=== PATIENT | female | born 1965 | race Caucasian/White ===

== ENCOUNTER 2016-09-26 01:32 | Emergency (ER) | payer BC ==
[2016-09-26] MEDS ORDERED: NORMAL SALINE 1,000 ML IV ONE ×2 (01:48→04:55)
[2016-09-26 01:52] LABS: Hematocrit 51.2 % (37.0-47.0); Hemoglobin 17.3 gm/dL (12.5-16.0); Mean Cell Volume 87.2 fl (78-100); Mean Corpuscular Hemoglobin 29.5 pg (27-31); Mean Corpuscular Hgb Conc 33.8 g/dl (32-36); Mean Platelet Volume 10.3 fl (6.0-9.5); Neutrophil # 9.2 K/mm3 (1.3-6.0); Neutrophil % 77.5 % (42-75.0); Platelet Count 340 K/mm3 (150-450); Red Blood Count 5.87 M/mm3 (4.2-5.4); Red Cell Distribution Width 12.3 % (11.5-14.0); White Blood Count 11.8 K/mm3 (4.0-10.5)
[2016-09-26] MEDS ORDERED: ONDANSETRON HCL/PF 2 MG/ML VIAL IV ONE (01:58)
--- OUTSIDE RECORDS SUMMARY | 2016-09-26 02:02 | XMS REPORT | Summary of Care ---
:[address] [facility] Care Team Providers Name Role Phone Dany Bajwa Primary Care Physician Encounter Date(s): 05/25/16 - 05/25/[address] [id number] Discharge Disposition: Discharged to Home or Self Care Attending Physician: LALO Christianson Admitting Physician: LALO Christianson Vital Signs No data available for this section Problem List Condition Effective Dates Status Health Status Informant Benign essential HTN(Confirmed) Active Recurrent UTI(Confirmed) Active Chronic pain syndrome(Confirmed) Active PTSD - Post-traumatic stress Active disorder(Confirmed) Depression(Confirmed) Active Diabetes mellitus type II(Confirmed) < 08/09/13 Resolved Endometriosis(Confirmed) Active Migraine(Confirmed) Active Obesity NOS(Confirmed) Active chronic Psychiatric Active illness(Confirmed) Hyperlipidemia NEC/NOS(Confirmed) Active Left Shoulder labral tear(Confirmed) 2009 Active Allergies, Adverse Reactions, Alerts Substance Reaction Severity Status Compazine Active Demerol HCl Active nitrofurantoin severe headaches Active Nubain Active Phenergan Active sulfa drugs upset stomach Active Medications amoxicillin 500 mg oral capsule 1 cap(s), Oral, TID, X 10 days, # 30 cap(s), 0 Refill(s), [facility] [facility] [place] [place] Start Date: 07/21/13 Stop Date: 07/31/13 Status: Completedaspirin 81 mg oral tablet 1 tab(s), Oral, Daily, 0 Refill(s) Start Date: 10/07/13 Status: OrderedAugmentin 875 mg-125 mg oral tablet 1 tab(s), Oral, q12hr, # 20 tab(s), 0 Refill(s), Start Date: 02/15/14 9:22:00 SLICE PLUG CUTTER OPERATOR HELPER, [facility] [place] Start Date: 02/15/14 Stop Date: 02/25/14 Status: DiscontinuedBactrim 400 mg-80 mg oral tablet 1 tab(s), Oral, Daily, PRN other (see comment), postcoital, X 90 days, # 20 tab( s), 3 Refill(s), Start Date: 12/15/15 15:47:00 CDT, [facility] [place] Special Instructions: postcoital Start Date: 12/15/15 Stop Date: 12/09/16 Status: OrderedBactrim DS 800 mg-160 mg oral tablet 1 tab(s), Oral, BID, X 7 days, # 14 tab(s), 0 Refill(s), Start Date: 04/16/14 13 :47:00 SLICE PLUG CUTTER OPERATOR HELPER Start Date: 04/16/14 Stop Date: 04/23/14 Status: Completedcephalexin 500 mg oral tablet 1 tab(s), Oral, TID, # 21 tab(s), 0 Refill(s), Start Date: 12/10/15 16:22:00 CDT , [facility] [facility] [place] [place] Start Date: 12/10/15 Stop Date: 01/18/16 Status: CompletedCipro 500 mg oral tablet 1 tab(s), Oral, Daily, X 7 days, # 7 tab(s), 0 Refill(s), Start Date: 09/27/14 9 :46:00 CDT, [facility]: [facility] [place] Start Date: 09/27/14 Stop Date: 10/04/14 Status: CompletedCipro 500 mg oral tablet 1 tab(s), Oral, q12hr, # 10 tab(s), 0 Refill(s), Start Date: 03/18/15 13:05:00 SLICE PLUG CUTTER OPERATOR HELPER, [facility] [place] Start Date: 03/18/15 Stop Date: 04/09/15 Status: CompletedCipro 500 mg oral tablet 1 tab(s), Oral, q12hr, X 7 days, # 14 tab(s), 0 Refill(s), Start Date: 04/16/14 13:56:00 SLICE PLUG CUTTER OPERATOR HELPER Start Date: 04/16/14 Stop Date: 04/23/14 Status: CompletedCipro 500 mg oral tablet 1 tab(s), Oral, q12hr, X 7 days, # 14 tab(s), 0 Refill(s), Start Date: 07/28/15 13:09:00 CDT, [facility] [place] Start Date: 07/28/15 Stop Date: 08/14/15 Status: CompletedCipro 500 mg oral tablet 1 tab(s), Oral, q12hr, # 14 tab(s), 0 Refill(s), Start Date: 03/11/16 16:34:00 SLICE PLUG CUTTER OPERATOR HELPER, [facility] [place] [place] Start Date: 03/11/16 Stop Date: 03/17/16 Status: CompletedCipro 500 mg oral tablet 1 tab(s), Oral, q12hr, # 14 tab(s), 0 Refill(s), Start Date: 08/14/15 14:07:40 CDT, [facility] [place] Start Date: 08/14/15 Stop Date: 09/10/15 Status: CompletedCo Q-10 100 mg oral capsule 1 cap(s), Oral, Daily, 0 Refill(s), Start Date: 08/09/13 8:32:00 CDT Start Date: 08/09/13 Status: Orderedcyclobenzaprine 10 mg oral tablet 1 tab(s), Oral, TID, PRN for spasm, # 90 tab(s), 0 Refill(s), [facility] [facility] [place] Start Date: 09/30/13 Stop Date: 10/29/13 Status: Completedcyclobenzaprine 10 mg oral tablet 1 tab(s), Oral, TID, PRN as needed for muscle spasm, # 30 tab(s), 0 Refill(s), Start Date: 08/18/14 9:33:10 CDT, [facility] [facility] [place] Start Date: 08/18/14 Status: Orderedcyclobenzaprine 10 mg oral tablet 1 tab(s), Oral, TID, PRN as needed for muscle spasm, # 90 tab(s), 5 Refill(s), Start Date: 10/29/13 11:04:53 CDT, [facility] [facility] [place] Start Date: 10/29/13 Stop Date: 08/18/14 Status: CompletedCymbalta 60 mg, Oral, qPM, 0 Refill(s), Start Date: 07/21/13 12:05:00 CDT Start Date: 07/21/13 Status: OrderedFlorastor 250 mg oral capsule 1 cap(s), Oral, BID, # 20 cap(s), 0 Refill(s), Start Date: 03/18/15 13:04:00 SLICE PLUG CUTTER OPERATOR HELPER , [facility] [facility] [place] Start Date: 03/18/15 Stop Date: 04/09/15 Status: Completedibuprofen 800 mg oral tablet 1 tab(s), Oral, TID, # 90 tab(s), 5 Refill(s), Start Date: 10/06/15 14:28:12 CDT , [facility] [facility] [place] Start Date: 10/06/15 Status: Orderedibuprofen 800 mg oral tablet 1 tab(s), Oral, TID, # 90 tab(s), 0 Refill(s), Pharmacy: [facility] [place] Start Date: 09/30/13 Stop Date: 10/29/13 Status: Completedibuprofen 800 mg oral tablet 1 tab(s), Oral, TID, # 90 tab(s), 5 Refill(s), Start Date: 08/18/14 9:33:12 CDT , [facility] [facility] [place] Start Date: 08/18/14 Stop Date: 10/06/15 Status: Discontinuedibuprofen 800 mg oral tablet 1 tab(s), Oral, TID, # 90 tab(s), 5 Refill(s), Start Date: 02/18/14 14:47:00 SLICE PLUG CUTTER OPERATOR HELPER , [facility] [facility] [place] Start Date: 02/18/14 Stop Date: 08/18/14 Status: Completedibuprofen 800 mg oral tablet 1 tab(s), Oral, TID, # 90 tab(s), 5 Refill(s), Pharmacy: [place], [place] Start Date: 10/29/13 Stop Date: 02/25/14 Status: DiscontinuedInsulin Pen Gaston 5/16" 31G 1 needle, Subcutaneous, QID, # 100 EA, 5 Refill(s), Pharmacy: [place], [place], Supply Start Date: 10/15/13 Stop Date: 06/06/14 Status: CompletedInsulin Pen [place] 5/16" 31G 1 needle, Subcutaneous, QID, Use 5 times daily and as needed; 250.00, insulin dependent diabetes mellitus., # 200 EA, 5 Refill(s), [facility] [place] Special Instructions: Use 5 times daily and as needed; 250.00, insulin dependent diabetes mellitus. Start Date: 06/06/14 Stop Date: 07/22/15 Status: CompletedInsulin Pen Gaston 16" 31G 100 [place], Subcutaneous, Daily, # 1 boxes, 0 Refill(s), Supply Start Date: 08/09/13 Stop Date: 10/15/13 Status: DiscontinuedKeflex 500 mg oral capsule 1 cap(s), Oral, BID, # 14 cap(s), 0 Refill(s), Start Date: 11/23/15 16:34:00 CDT , Pharmacy: [place], [place] Start Date: 11/23/15 Stop Date: 12/10/15 Status: CompletedLevemir Subcutaneous, 0 Refill(s) Start Date: 07/21/13 Stop Date: 08/10/13 Status: DiscontinuedLevemir 100 units/mL subcutaneous solution 60 units, Subcutaneous, BID, # 10 mL, 3 Refill(s), Pharmacy: [place], [place] Start Date: 08/12/13 Stop Date: 09/11/13 Status: DiscontinuedLevemir 100 units/mL subcutaneous solution 70 units, Subcutaneous, BID, # 100 units, 3 Refill(s) Start Date: 08/10/13 Stop Date: 08/12/13 Status: CompletedLevemir 100 units/mL subcutaneous solution 80 units, Subcutaneous, BID, dose change, # 1 QS, 5 Refill(s), [facility] [place] Special Instructions: dose change Start Date: 09/11/13 Stop Date: 09/12/13 Status: DiscontinuedLevemir 100 units/mL subcutaneous solution 80 units, Subcutaneous, BID, dose change, # 5 EA, 5 Refill(s), [facility] [place] Special Instructions: dose change Start Date: 09/12/13 Stop Date: 12/31/13 Status: CompletedLevemir FlexTouch 100 units/mL subcutaneous solution 80 units, Subcutaneous, BID, # 15 mL, 5 Refill(s), Start Date: 12/30/13 10:57: 00 SLICE PLUG CUTTER OPERATOR HELPER, [facility] [place] Start Date: 12/30/13 Stop Date: 12/31/13 Status: CompletedLevemir FlexTouch 100 units/mL subcutaneous solution 80 units, Subcutaneous, BID, 0 Refill(s), Start Date: 12/30/13 10:56:00 SLICE PLUG CUTTER OPERATOR HELPER Start Date: 12/30/13 Stop Date: 12/30/13 Status: DiscontinuedLevemir FlexTouch 100 units/mL subcutaneous solution 80 units, Subcutaneous, BID, # 60 mL, 3 Refill(s), Start Date: 12/31/13 8:31:03 SLICE PLUG CUTTER OPERATOR HELPER, [facility] [place] [place] Start Date: 12/31/13 Stop Date: 06/30/14 Status: CompletedLevemir FlexTouch 100 units/mL subcutaneous solution 80 units, Subcutaneous, BID, NEEDS APPOINTMENT FOR FURTHER REFILLS., # 1 boxes, 0 Refill(s), Start Date: 06/30/14 11:11:59 CDT, [facility] [place] [place] Special Instructions: NEEDS APPOINTMENT FOR FURTHER REFILLS. Start Date: 06/30/14 Stop Date: 01/18/16 Status: DiscontinuedLipitor Oral, HS, 0 Refill(s) Start Date: 07/21/13 Stop Date: 09/11/13 Status: DiscontinuedLipitor 40 mg oral tablet 1 tab(s), Oral, HS, # 30 tab(s), 11 Refill(s), [facility]acy: [facility] [place] Start Date: 09/11/13 Stop Date: 02/25/14 Status: DiscontinuedLipitor 80 mg oral tablet 1 tab(s), Oral, Daily, # 90 tab(s), 1 Refill(s), Start Date: 10/06/15 14:27:53 CDT, [facility] [facility] [place] Start Date: 10/06/15 Stop Date: 04/19/16 Status: CompletedLipitor 80 mg oral tablet 1 tab(s), Oral, Daily, # 90 tab(s), 1 Refill(s), Start Date: 04/27/15 8:50:46 SLICE PLUG CUTTER OPERATOR HELPER, [facility] [place] Start Date: 04/27/15 Stop Date: 10/06/15 Status: DiscontinuedLipitor 80 mg oral tablet 1 tab(s), Oral, Daily, # 30 tab(s), 5 Refill(s), Start Date: 08/18/14 9:33:09 CDT, [facility] [facility] [place] Start Date: 08/18/14 Stop Date: 04/27/15 Status: CompletedLipitor 80 mg oral tablet 1 tab(s), Oral, Daily, # 90 tab(s), 1 Refill(s), Start Date: 04/19/16 16:38:20 SLICE PLUG CUTTER OPERATOR HELPER, [facility] [facility] [place] Start Date: 04/19/16 Stop Date: 05/20/16 Status: DiscontinuedLipitor 80 mg oral tablet 1 tab(s), Oral, Daily, # 90 tab(s), 1 Refill(s), Start Date: 02/25/14 11:02:00 SLICE PLUG CUTTER OPERATOR HELPER, [facility] [place] Start Date: 02/25/14 Stop Date: 08/18/14 Status: CompletedLipitor 80 mg oral tablet 0.5, Oral, Daily, # 45 tab(s), 3 Refill(s), Start Date: 05/20/16 16:40:23 CDT, other reason (Rx) Start Date: 05/20/16 Stop Date: 05/15/17 Status: Orderedlisinopril 2.5 mg oral tablet 1 tab(s), Oral, Daily, # 90 tab(s), 1 Refill(s), Start Date: 10/06/15 14:28:19 CDT, [facility] [place] Start Date: 10/06/15 Stop Date: 04/19/16 Status: Completedlisinopril 2.5 mg oral tablet 1 tab(s), Oral, Daily, # 90 tab(s), 1 Refill(s), Start Date: 02/25/14 11:01:00 SLICE PLUG CUTTER OPERATOR HELPER, [facility]: [facility] [place] Start Date: 02/25/14 Stop Date: 08/04/14 Status: Completedlisinopril 2.5 mg oral tablet 1 tab(s), Oral, Daily, # 90 tab(s), 1 Refill(s), Start Date: 04/27/15 8:50:29 SLICE PLUG CUTTER OPERATOR HELPER, [facility] [place] Start Date: 04/27/15 Stop Date: 10/06/15 Status: Discontinuedlisinopril 2.5 mg oral tablet 1 tab(s), Oral, Daily, # 30 tab(s), 0 Refill(s), Start Date: 03/30/15 8:50:25 SLICE PLUG CUTTER OPERATOR HELPER, [facility] [place] Start Date: 03/30/15 Stop Date: 04/27/15 Status: Completedlisinopril 2.5 mg oral tablet 1 tab(s), Oral, Daily, # 30 tab(s), 5 Refill(s), Start Date: 08/18/14 9:33:11 CDT, [facility] [place] Start Date: 08/18/14 Stop Date: 02/24/15 Status: Completedlisinopril 2.5 mg oral tablet 1 tab(s), Oral, Daily, # 30 tab(s), 0 Refill(s), Start Date: 08/04/14 15:05:18 CDT, Pharmacy: [facility] [place] Start Date: 08/04/14 Stop Date: 08/18/14 Status: Completedlisinopril 2.5 mg oral tablet 1 tab(s), Oral, Daily, # 90 tab(s), 0 Refill(s), Start Date: 04/19/16 8:41:55 SLICE PLUG CUTTER OPERATOR HELPER, Pharmacy: [facility] [place] Start Date: 04/19/16 Status: Orderedlisinopril 2.5 mg oral tablet 1 tab(s), Oral, Daily, # 30 tab(s), 0 Refill(s), Start Date: 02/24/15 13:29:23 SLICE PLUG CUTTER OPERATOR HELPER, [facility]acy: [facility] [place] Start Date: 02/24/15 Stop Date: 03/30/15 Status: Completedlisinopril 20 mg oral tablet 1 tab(s), Oral, Daily, # 14 tab(s), 0 Refill(s), Start Date: 04/16/14 13:47:00 SLICE PLUG CUTTER OPERATOR HELPER Start Date: 04/16/14 Stop Date: 04/24/14 Status: Discontinuedlisinopril 20 mg oral tablet 1 tab(s), Oral, Daily, X 14 days, # 14 tab(s), 0 Refill(s), Start Date: 13:56:00 SLICE PLUG CUTTER OPERATOR HELPER Start Date: 04/16/14 Stop Date: 04/24/14 Status: DiscontinuedLORazepam 1 mg oral tablet 1 tab(s), Oral, HS, 0 Refill(s), Start Date: 03/17/16 15:20:00 SLICE PLUG CUTTER OPERATOR HELPER Start Date: 03/17/16 Status: Orderedmeloxicam 15 mg oral tablet 1 tab(s), Oral, Daily, 0 Refill(s) Start Date: 08/09/13 Stop Date: 09/11/13 Status: DiscontinuedmetFORMIN 500 mg oral tablet 1 tab(s), Oral, Daily, 0 Refill(s) Start Date: 10/07/13 Status: Orderedmethylphenidate 10 mg oral tablet 1-2 tab(s), Oral, TID, 0 Refill(s), Start Date: 03/16/15 14:45:00 SLICE PLUG CUTTER OPERATOR HELPER Start Date: 03/16/15 Stop Date: 05/20/16 Status: Completedmultivitamin 1 tab(s), Oral, Daily, 0 Refill(s), Start Date: 08/09/13 8:33:00 CDT Start Date: 08/09/13 Status: OrderedNovoLOG Subcutaneous, TIDAC, 0 Refill(s) Start Date: 07/21/13 Status: OrderedPen Gaston Short 31G 8mm See Instructions, up to 5 times daily with insulin pens; diagnosis E11.9, # 200 EA, 5 Refill(s), Pharmacy: [place], [place], Supply Special Instructions: up to 5 times daily with insulin pens; diagnosis E11.9 Start Date: 07/22/15 Stop Date: 12/14/15 Status: CompletedPen [place] Short 31G 8mm See Instructions, up to 5 times daily with insulin pens, 0 Refill(s), Supply Special Instructions: up to 5 times daily with insulin pens Start Date: 07/22/15 Stop Date: 07/22/15 Status: DiscontinuedPen [place] Short 31G 8mm See Instructions, up to 5 times daily with insulin pens; diagnosis E11.9, # 200 EA, 5 Refill(s), Pharmacy: [place], [place], Supply Special Instructions: up to 5 times daily with insulin pens; diagnosis E11.9 Start Date: 12/14/15 Status: OrderedPercocet 5/325 oral tablet 2 tab(s), Oral, q6hr interval, 0 Refill(s) Start Date: 09/30/13 Stop Date: 09/30/13 Status: DiscontinuedPercocet 5/325 oral tablet 2 tab(s), Oral, q6hr interval, # 240 tab(s), 0 Refill(s) Start Date: 09/30/13 Stop Date: 02/25/14 Status: DiscontinuedpredniSONE 10 mg oral tablet 1 tab(s), Oral, BID, # 10 tab(s), 0 Refill(s), Start Date: 10/06/15 14:29:00 CDT , [facility] [place] Start Date: 10/06/15 Stop Date: 11/23/15 Status: DiscontinuedPriLOSEC 20 mg oral delayed release capsule 1 cap(s), Oral, Daily, # 30 cap(s), 11 Refill(s), [facility] [place] [place] Start Date: 09/11/13 Status: OrderedPriLOSEC 20 mg oral delayed release capsule 1 cap(s), Oral, Daily, 0 Refill(s) Start Date: 08/09/13 Stop Date: 09/11/13 Status: DiscontinuedPyridium 100 mg oral tablet 1 tab(s), Oral, TID, PRN as needed for urinary discomfort, # 90 tab(s), 0 Refill (s), Start Date: 05/25/16 11:16:00 CDT, [facility] [facility] [place] Start Date: 05/25/16 Status: OrderedQvar 40 mcg/inh inhalation aerosol 2 puff(s), Inhale, BID, # 1 EA, 0 Refill(s), [facility] [place] [place] Start Date: 07/21/13 Stop Date: 08/20/13 Status: CompletedTamiflu 75 mg oral capsule 1 cap(s), Oral, BID, # 14 cap(s), 0 Refill(s), Start Date: 04/19/16 14:36:00 SLICE PLUG CUTTER OPERATOR HELPER , [facility] [place] [place] Start Date: 04/19/16 Stop Date: 05/20/16 Status: CompletedTest Strips Other (See Comment) blood sugar diagnostic Strips, 0 Refill(s), Supply Special Instructions: blood sugar diagnostic Strips Start Date: 08/09/13 Stop Date: 03/16/15 Status: CompletedToprol-XL 25 mg oral tablet, extended release 1 tab(s), Oral, Daily, # 30 tab(s), 2 Refill(s), Start Date: 04/24/14 16:04:00 SLICE PLUG CUTTER OPERATOR HELPER, [facility] [place] Start Date: 04/24/14 Stop Date: 07/28/14 Status: CompletedToprol-XL 25 mg oral tablet, extended release 1 tab(s), Oral, Daily, # 90 tab(s), 1 Refill(s), Start Date: 05/20/16 15:51:55 CDT, [facility] [place] [place] Start Date: 05/20/16 Status: OrderedToprol-XL 25 mg oral tablet, extended release 1 tab(s), Oral, Daily, # 30 tab(s), 0 Refill(s), Start Date: 03/30/15 8:50:13 SLICE PLUG CUTTER OPERATOR HELPER, [facility] [place] Start Date: 03/30/15 Stop Date: 04/27/15 Status: CompletedToprol-XL 25 mg oral tablet, extended release 1 tab(s), Oral, Daily, # 90 tab(s), 1 Refill(s), Start Date: 04/27/15 8:48:35 SLICE PLUG CUTTER OPERATOR HELPER, [facility] [place] Start Date: 04/27/15 Stop Date: 11/09/15 Status: CompletedToprol-XL 25 mg oral tablet, extended release 1 tab(s), Oral, Daily, # 30 tab(s), 5 Refill(s), Start Date: 08/18/14 9:33:12 CDT, [facility] [place] Start Date: 08/18/14 Stop Date: 02/24/15 Status: CompletedToprol-XL 25 mg oral tablet, extended release 1 tab(s), Oral, Daily, # 30 tab(s), 0 Refill(s), Start Date: 07/28/14 10:44:21 CDT, [facility] [place] Start Date: 07/28/14 Stop Date: 08/18/14 Status: CompletedToprol-XL 25 mg oral tablet, extended release 1 tab(s), Oral, Daily, # 90 tab(s), 1 Refill(s), Start Date: 11/09/15 9:20:27 CDT, [facility] [place] Start Date: 11/09/15 Stop Date: 05/20/16 Status: CompletedToprol-XL 25 mg oral tablet, extended release 1 tab(s), Oral, Daily, # 30 tab(s), 0 Refill(s), Start Date: 02/24/15 13:29:31 SLICE PLUG CUTTER OPERATOR HELPER, [facility] [place] Start Date: 02/24/15 Stop Date: 03/30/15 Status: CompletedToujeo SoloStar 300 units/mL subcutaneous solution 40 units, Subcutaneous, BID, 0 Refill(s), Start Date: 03/11/16 16:04:00 SLICE PLUG CUTTER OPERATOR HELPER Start Date: 03/11/16 Stop Date: 05/20/16 Status: DiscontinuedToujeo SoloStar 300 units/mL subcutaneous solution See Instructions, 45 units Subcutaneous BID, # 5 mL, 11 Refill(s), Start Date: 05/20/16 16:41:00 CDT, other reason (Rx) Special Instructions: 45 units Subcutaneous BID Start Date: 05/20/16 Status: OrderedTradjenta 5 mg oral tablet 1 tab(s), Oral, Daily, # 30 tab(s), 11 Refill(s), [facility] [facility] [place] [place] Start Date: 09/11/13 Stop Date: 02/25/14 Status: DiscontinuedTradjenta 5 mg oral tablet 1 tab(s), Oral, Daily, # 30 tab(s), 0 Refill(s) Start Date: 08/09/13 Stop Date: 09/11/13 Status: DiscontinuedtraMADol 50 mg oral tablet 1 tab(s), Oral, q6hr interval, maximum 6 in 24 hour period, # 120 tab(s), 2 Refill(s), Start Date: 10/06/15 14:28:41 CDT Special Instructions: maximum 6 in 24 hour period Start Date: 10/06/15 Status: OrderedtraMADol 50 mg oral tablet See Instructions, PRN for pain, take 1 tablet by ORAL route every 4 hours as needed, 0 Refill(s) Special Instructions: take 1 tablet by ORAL route every 4 hours as needed Start Date: 08/09/13 Stop Date: 09/11/13 Status: DiscontinuedtraMADol 50 mg oral tablet See Instructions, PRN for pain, take 1 - 2 Tablet (50MG) by oral route every 6 hours as needed, 0 Refill(s) Special Instructions: take 1 - 2 Tablet (50MG) by oral route every 6 hours as needed Start Date: 08/09/13 Stop Date: 09/11/13 Status: DiscontinuedtraMADol 50 mg oral tablet 1 tab(s), Oral, q6hr interval, maximum 6 in 24 hour period, # 120 tab(s), 2 Refill(s), Start Date: 02/18/14 14:45:00 SLICE PLUG CUTTER OPERATOR HELPER Special Instructions: maximum 6 in 24 hour period Start Date: 02/18/14 Stop Date: 10/06/15 Status: Discontinuedtriamcinolone 0.1% topical cream 1 norbert, Topical, BID, X 14 days, # 30 gm, 0 Refill(s), Start Date: 09/10/15 13:47 :00 CDT, [facility] [place] [place] Start Date: 09/10/15 Stop Date: 09/24/15 Status: CompletedWellbutrin Oral, 0 Refill(s) Start Date: 07/21/13 Stop Date: 09/30/13 Status: DiscontinuedWellbutrin 100 mg oral tablet 1 tab(s), Oral, TID, 0 Refill(s) Start Date: 08/09/13 Status: OrderedZofran ODT 8 mg oral tablet, disintegrating 1 tab(s), Oral, TID, # 10 tab(s), 0 Refill(s) Start Date: 09/30/13 Stop Date: 02/18/14 Status: Completed Results No data available for this section Immunizations Vaccine Date Refusal Reason influenza virus vaccine, inactivated 12/16/14 tetanus/diphtheria/pertussis, acel(Tdap) 10/06/09 Procedures Procedure Date Related Diagnosis Body Site Balloon kyphoplasty of fracture of spine 10/24/13 Rt Shoulder scope with RCR 08/21/12 Arthroscopy left shoulder 2010 Hernia repair 2009 laparoscopic ventral hernia repair 2008 Hysterectomy 2005 removal of Ovarian cyst 1998 Cholecystectomy 1992 Pregnancies x 3 RELL BSO - Total abdominal hysterectomy and bilateral salpingo-oophorectomy Social History No data available for this section Assessment and Plan No data available for this section
--- OUTSIDE RECORDS SUMMARY | 2016-09-26 02:03 | XMS REPORT | Summary of Care ---
:1965 Author Organization [facility] Address [address] [place] [address] Care Team Providers Name Role Phone Dany Bajwa Primary Care Physician Encounter Date(s): 03/17/16 - 03/17/16 [facility], [address] [place], [place] [address] Discharge Disposition: 01 Discharged to Home or Self Care Attending Physician: Juan Alberto Fox MD Referring Physician: Juan Alberto Fox MD Vital Signs Most recent to oldest [Reference Range]: 1 Temperature Temporal Artery [36.0-38.0 DegC] 36.0 DegC (03/17/16 3:19 PM) Peripheral Pulse Rate [60-100 bpm] 91 bpm (03/17/16 3:19 PM) Blood Pressure [90-130/60-90 mmHg] 159/73mmHg *HI* (03/17/16 3:19 PM) Mean Arterial Pressure, Cuff 102 mmHg (03/17/16 3:19 PM) Height/Length Measured 162.5 cm (03/17/16 3:19 PM) Weight Dosing 126.20 kg1 (03/17/16 3:23 PM) Weight Measured 126.2 kg (03/17/16 3:19 PM) BSA Measured 2.25 m2 (03/17/16 3:19 PM) Body Mass Index Measured 47.79 kg/m2 (03/17/16 3:19 PM) 1Result Comment: This result was because the dosing weight was either not entered or it is>30 days old. This result is based off: Weight Measured March 17, 2016 15:19:00 GENERATION ENGINEERING TECHNOLOGIST by Ayesha Nicholas RN Problem List Condition Effective Dates Status Health Status Informant Benign essential HTN(Confirmed) Active Chronic pain syndrome(Confirmed) Active PTSD - Post-traumatic stress Active disorder(Confirmed) Depression(Confirmed) Active Diabetes mellitus type II(Confirmed) < 08/09/13 Resolved Endometriosis(Confirmed) Active Migraine(Confirmed) Active Obesity NOS(Confirmed) Active chronic Psychiatric Active illness(Confirmed) Hyperlipidemia NEC/NOS(Confirmed) Active Recurrent UTI(Confirmed) Active Left Shoulder labral tear(Confirmed) 2009 Active Allergies, Adverse Reactions, Alerts Substance Reaction Severity Status Compazine Active Demerol HCl Active nitrofurantoin severe headaches Active Nubain Active Phenergan Active sulfa drugs upset stomach Active Medications amoxicillin 500 mg oral capsule 1 cap(s), Oral, TID, X 10 days, # 30 cap(s), 0 Refill(s), [place] [facility] [place] Start Date: 07/21/13 Stop Date: 07/31/13 Status: Completedaspirin 81 mg oral tablet 1 tab(s), Oral, Daily, 0 Refill(s) Start Date: 10/07/13 Status: OrderedAugmentin 875 mg-125 mg oral tablet 1 tab(s), Oral, q12hr, # 20 tab(s), 0 Refill(s), Start Date: 02/15/14 9:22:00 GENERATION ENGINEERING TECHNOLOGIST, [facility] [facility] [place] [place] Start Date: 02/15/14 Stop Date: 02/25/14 Status: DiscontinuedBactrim 400 mg-80 mg oral tablet 1 tab(s), Oral, Daily, PRN other (see comment), postcoital, X 90 days, # 20 tab( s), 3 Refill(s), Start Date: 12/15/15 15:47:00 CDT, [place] [place] Start Date: 12/15/15 Stop Date: 12/09/16 Status: OrderedBactrim DS 800 mg-160 mg oral tablet 1 tab(s), Oral, BID, X 7 days, # 14 tab(s), 0 Refill(s), Start Date: 04/16/14 13 :47:00 GENERATION ENGINEERING TECHNOLOGIST Start Date: 04/16/14 Stop Date: 04/23/14 Status: Completedcephalexin 500 mg oral tablet 1 tab(s), Oral, TID, # 21 tab(s), 0 Refill(s), Start Date: 12/10/15 16:22:00 CDT , [place] [facility] [place] Start Date: 12/10/15 Stop Date: 01/18/16 Status: CompletedCipro 500 mg oral tablet 1 tab(s), Oral, Daily, X 7 days, # 7 tab(s), 0 Refill(s), Start Date: 09/27/14 9 :46:00 CDT, [place] [facility] [place] Start Date: 09/27/14 Stop Date: 10/04/14 Status: CompletedCipro 500 mg oral tablet 1 tab(s), Oral, q12hr, # 10 tab(s), 0 Refill(s), Start Date: 03/18/15 13:05:00 GENERATION ENGINEERING TECHNOLOGIST, [place] [facility] [place] Start Date: 03/18/15 Stop Date: 04/09/15 Status: CompletedCipro 500 mg oral tablet 1 tab(s), Oral, q12hr, X 7 days, # 14 tab(s), 0 Refill(s), Start Date: 04/16/14 13:56:00 GENERATION ENGINEERING TECHNOLOGIST Start Date: 04/16/14 Stop Date: 04/23/14 Status: CompletedCipro 500 mg oral tablet 1 tab(s), Oral, q12hr, X 7 days, # 14 tab(s), 0 Refill(s), Start Date: 07/28/15 13:09:00 CDT, [place] [facility] [place] Start Date: 07/28/15 Stop Date: 08/14/15 Status: CompletedCipro 500 mg oral tablet 1 tab(s), Oral, q12hr, # 14 tab(s), 0 Refill(s), Start Date: 03/11/16 16:34:00 GENERATION ENGINEERING TECHNOLOGIST, [place] [facility] [place] Start Date: 03/11/16 Stop Date: 03/17/16 Status: CompletedCipro 500 mg oral tablet 1 tab(s), Oral, q12hr, # 14 tab(s), 0 Refill(s), Start Date: 08/14/15 14:07:40 CDT, [facility] [place] Start Date: 08/14/15 Stop Date: 09/10/15 Status: CompletedCo Q-10 100 mg oral capsule 1 cap(s), Oral, Daily, 0 Refill(s), Start Date: 08/09/13 8:32:00 CDT Start Date: 08/09/13 Status: Orderedcyclobenzaprine 10 mg oral tablet 1 tab(s), Oral, TID, PRN for spasm, # 90 tab(s), 0 Refill(s), [facility] [place] Start Date: 09/30/13 Stop Date: 10/29/13 Status: Completedcyclobenzaprine 10 mg oral tablet 1 tab(s), Oral, TID, PRN as needed for muscle spasm, # 30 tab(s), 0 Refill(s), Start Date: 08/18/14 9:33:10 CDT, [facility] [place] Start Date: 08/18/14 Status: Orderedcyclobenzaprine 10 mg oral tablet 1 tab(s), Oral, TID, PRN as needed for muscle spasm, # 90 tab(s), 5 Refill(s), Start Date: 10/29/13 11:04:53 CDT, Pharmacy: [place], [place] Start Date: 10/29/13 Stop Date: 08/18/14 Status: CompletedCymbalta 60 mg, Oral, qPM, 0 Refill(s), Start Date: 07/21/13 12:05:00 CDT Start Date: 07/21/13 Status: OrderedFlorastor 250 mg oral capsule 1 cap(s), Oral, BID, # 20 cap(s), 0 Refill(s), Start Date: 03/18/15 13:04:00 GENERATION ENGINEERING TECHNOLOGIST , [facility] [place] Start Date: 03/18/15 Stop Date: 04/09/15 Status: Completedibuprofen 800 mg oral tablet 1 tab(s), Oral, TID, # 90 tab(s), 5 Refill(s), Start Date: 10/06/15 14:28:12 CDT , [facility] [place] Start Date: 10/06/15 Status: Orderedibuprofen 800 mg oral tablet 1 tab(s), Oral, TID, # 90 tab(s), 0 Refill(s), [facility] [place] Start Date: 09/30/13 Stop Date: 10/29/13 Status: Completedibuprofen 800 mg oral tablet 1 tab(s), Oral, TID, # 90 tab(s), 5 Refill(s), Start Date: 08/18/14 9:33:12 CDT , Pharmacy: [place], [place] Start Date: 08/18/14 Stop Date: 10/06/15 Status: Discontinuedibuprofen 800 mg oral tablet 1 tab(s), Oral, TID, # 90 tab(s), 5 Refill(s), Start Date: 02/18/14 14:47:00 GENERATION ENGINEERING TECHNOLOGIST , [facility] [place] Start Date: 02/18/14 Stop Date: 08/18/14 Status: Completedibuprofen 800 mg oral tablet 1 tab(s), Oral, TID, # 90 tab(s), 5 Refill(s), [facility] [place] [place] Start Date: 10/29/13 Stop Date: 02/25/14 Status: DiscontinuedInsulin Pen Parsons 16" 31G 1 needle, Subcutaneous, QID, # 100 EA, 5 Refill(s), [facility] [place] Start Date: 10/15/13 Stop Date: 06/06/14 Status: CompletedInsulin Pen Parsons 16" 31G 1 needle, Subcutaneous, QID, Use 5 times daily and as needed; 250.00, insulin dependent diabetes mellitus., # 200 EA, 5 Refill(s), [facility] [place] [place] Start Date: 06/06/14 Stop Date: 07/22/15 Status: CompletedInsulin Pen Parsons 16" 31G 100 Parsons, Subcutaneous, Daily, # 1 boxes, 0 Refill(s), Supply Start Date: 08/09/13 Stop Date: 10/15/13 Status: DiscontinuedKeflex 500 mg oral capsule 1 cap(s), Oral, BID, # 14 cap(s), 0 Refill(s), Start Date: 11/23/15 16:34:00 CDT , [facility] [place] Start Date: 11/23/15 Stop Date: 12/10/15 Status: CompletedLevemir Subcutaneous, 0 Refill(s) Start Date: 07/21/13 Stop Date: 08/10/13 Status: DiscontinuedLevemir 100 units/mL subcutaneous solution 60 units, Subcutaneous, BID, # 10 mL, 3 Refill(s), [facility] [place] [place] Start Date: 08/12/13 Stop Date: 09/11/13 Status: DiscontinuedLevemir 100 units/mL subcutaneous solution 70 units, Subcutaneous, BID, # 100 units, 3 Refill(s) Start Date: 08/10/13 Stop Date: 08/12/13 Status: CompletedLevemir 100 units/mL subcutaneous solution 80 units, Subcutaneous, BID, dose change, # 1 QS, 5 Refill(s), [facility] [place] [place] Start Date: 09/11/13 Stop Date: 09/12/13 Status: DiscontinuedLevemir 100 units/mL subcutaneous solution 80 units, Subcutaneous, BID, dose change, # 5 EA, 5 Refill(s), [facility] [place] [place] Start Date: 09/12/13 Stop Date: 12/31/13 Status: CompletedLevemir FlexTouch 100 units/mL subcutaneous solution 80 units, Subcutaneous, BID, # 15 mL, 5 Refill(s), Start Date: 12/30/13 10:57: 00 GENERATION ENGINEERING TECHNOLOGIST, Pharmacy: [place], [place] Start Date: 12/30/13 Stop Date: 12/31/13 Status: CompletedLevemir FlexTouch 100 units/mL subcutaneous solution 80 units, Subcutaneous, BID, 0 Refill(s), Start Date: 12/30/13 10:56:00 GENERATION ENGINEERING TECHNOLOGIST Start Date: 12/30/13 Stop Date: 12/30/13 Status: DiscontinuedLevemir FlexTouch 100 units/mL subcutaneous solution 80 units, Subcutaneous, BID, # 60 mL, 3 Refill(s), Start Date: 12/31/13 8:31:03 GENERATION ENGINEERING TECHNOLOGIST, [place] [facility] [place] Start Date: 12/31/13 Stop Date: 06/30/14 Status: CompletedLevemir FlexTouch 100 units/mL subcutaneous solution 80 units, Subcutaneous, BID, NEEDS APPOINTMENT FOR FURTHER REFILLS., # 1 boxes, 0 Refill(s), Start Date: 06/30/14 11:11:59 CDT, [facility] [place] [place] Start Date: 06/30/14 Stop Date: 01/18/16 Status: DiscontinuedLipitor Oral, HS, 0 Refill(s) Start Date: 07/21/13 Stop Date: 09/11/13 Status: DiscontinuedLipitor 40 mg oral tablet 1 tab(s), Oral, HS, # 30 tab(s), 11 Refill(s), [place] [facility] [place] Start Date: 09/11/13 Stop Date: 02/25/14 Status: DiscontinuedLipitor 80 mg oral tablet 1 tab(s), Oral, Daily, # 90 tab(s), 1 Refill(s), Start Date: 10/06/15 14:27:53 CDT, [facility] [place] Start Date: 10/06/15 Status: OrderedLipitor 80 mg oral tablet 1 tab(s), Oral, Daily, # 90 tab(s), 1 Refill(s), Start Date: 04/27/15 8:50:46 GENERATION ENGINEERING TECHNOLOGIST, [place] [facility] [place] Start Date: 04/27/15 Stop Date: 10/06/15 Status: DiscontinuedLipitor 80 mg oral tablet 1 tab(s), Oral, Daily, # 30 tab(s), 5 Refill(s), Start Date: 08/18/14 9:33:09 CDT, [facility] [place] Start Date: 08/18/14 Stop Date: 04/27/15 Status: CompletedLipitor 80 mg oral tablet 1 tab(s), Oral, Daily, # 90 tab(s), 1 Refill(s), Start Date: 02/25/14 11:02:00 GENERATION ENGINEERING TECHNOLOGIST, [place] [facility] [place] Start Date: 02/25/14 Stop Date: 08/18/14 Status: Completedlisinopril 2.5 mg oral tablet 1 tab(s), Oral, Daily, # 90 tab(s), 1 Refill(s), Start Date: 10/06/15 14:28:19 CDT, [place] [place] Start Date: 10/06/15 Status: Orderedlisinopril 2.5 mg oral tablet 1 tab(s), Oral, Daily, # 90 tab(s), 1 Refill(s), Start Date: 02/25/14 11:01:00 GENERATION ENGINEERING TECHNOLOGIST, [place] [facility] [place] Start Date: 02/25/14 Stop Date: 08/04/14 Status: Completedlisinopril 2.5 mg oral tablet 1 tab(s), Oral, Daily, # 90 tab(s), 1 Refill(s), Start Date: 04/27/15 8:50:29 GENERATION ENGINEERING TECHNOLOGIST, [facility] Start Date: 04/27/15 Stop Date: 10/06/15 Status: Discontinuedlisinopril 2.5 mg oral tablet 1 tab(s), Oral, Daily, # 30 tab(s), 0 Refill(s), Start Date: 03/30/15 8:50:25 GENERATION ENGINEERING TECHNOLOGIST, [facility] [facility] Start Date: 03/30/15 Stop Date: 04/27/15 Status: Completedlisinopril 2.5 mg oral tablet 1 tab(s), Oral, Daily, # 30 tab(s), 5 Refill(s), Start Date: 08/18/14 9:33:11 CDT, [place] [facility] [place] Start Date: 08/18/14 Stop Date: 02/24/15 Status: Completedlisinopril 2.5 mg oral tablet 1 tab(s), Oral, Daily, # 30 tab(s), 0 Refill(s), Start Date: 08/04/14 15:05:18 CDT, [facility] [facility] [place] Start Date: 08/04/14 Stop Date: 08/18/14 Status: Completedlisinopril 2.5 mg oral tablet 1 tab(s), Oral, Daily, # 30 tab(s), 0 Refill(s), Start Date: 02/24/15 13:29:23 GENERATION ENGINEERING TECHNOLOGIST, [place] [facility] [place] Start Date: 02/24/15 Stop Date: 03/30/15 Status: Completedlisinopril 20 mg oral tablet 1 tab(s), Oral, Daily, # 14 tab(s), 0 Refill(s), Start Date: 04/16/14 13:47:00 GENERATION ENGINEERING TECHNOLOGIST Start Date: 04/16/14 Stop Date: 04/24/14 Status: Discontinuedlisinopril 20 mg oral tablet 1 tab(s), Oral, Daily, X 14 days, # 14 tab(s), 0 Refill(s), Start Date: 13:56:00 GENERATION ENGINEERING TECHNOLOGIST Start Date: 04/16/14 Stop Date: 04/24/14 Status: DiscontinuedLORazepam 1 mg oral tablet 1 tab(s), Oral, HS, 0 Refill(s), Start Date: 03/17/16 15:20:00 GENERATION ENGINEERING TECHNOLOGIST Start Date: 03/17/16 Status: Orderedmeloxicam 15 mg oral tablet 1 tab(s), Oral, Daily, 0 Refill(s) Start Date: 08/09/13 Stop Date: 09/11/13 Status: DiscontinuedmetFORMIN 500 mg oral tablet 1 tab(s), Oral, Daily, 0 Refill(s) Start Date: 10/07/13 Status: Orderedmethylphenidate 10 mg oral tablet 1-2 tab(s), Oral, TID, 0 Refill(s), Start Date: 03/16/15 14:45:00 GENERATION ENGINEERING TECHNOLOGIST Start Date: 03/16/15 Status: Orderedmultivitamin 1 tab(s), Oral, Daily, 0 Refill(s), Start Date: 08/09/13 8:33:00 CDT Start Date: 08/09/13 Status: OrderedNovoLOG Subcutaneous, TIDAC, 0 Refill(s) Start Date: 07/21/13 Status: OrderedPen Parsons Short 31G 8mm See Instructions, up to 5 times daily with insulin pens; diagnosis E11.9, # 200 EA, 5 Refill(s), Pharmacy: [place], [place], Supply Start Date: 07/22/15 Stop Date: 12/14/15 Status: CompletedPen Parsons Short 31G 8mm See Instructions, up to 5 times daily with insulin pens, 0 Refill(s), Supply Start Date: 07/22/15 Stop Date: 07/22/15 Status: DiscontinuedPen Parsons Short 31G 8mm See Instructions, up to 5 times daily with insulin pens; diagnosis E11.9, # 200 EA, 5 Refill(s), Pharmacy: [place], [place], Supply Start Date: 12/14/15 Status: OrderedPercocet 5/325 oral [...] Start Date: 10/06/15 14:29:00 CDT , Pharmacy: [place], [place] Start Date: 10/06/15 Stop Date: 11/23/15 Status: DiscontinuedPriLOSEC 20 mg oral delayed release capsule 1 cap(s), Oral, Daily, # 30 cap(s), 11 Refill(s), Pharmacy: [place], [place] Start Date: 09/11/13 Status: OrderedPriLOSEC 20 mg oral delayed release capsule 1 cap(s), Oral, Daily, 0 Refill(s) Start Date: 08/09/13 Stop Date: 09/11/13 Status: DiscontinuedQvar 40 mcg/inh inhalation aerosol 2 puff(s), Inhale, BID, # 1 EA, 0 Refill(s), [facility] [place] Start Date: 07/21/13 Stop Date: 08/20/13 Status: CompletedTest Strips Other (See Comment) blood sugar diagnostic Strips, 0 Refill(s), Supply Start Date: 08/09/13 Stop Date: 03/16/15 Status: CompletedToprol-XL 25 mg oral tablet, extended release 1 tab(s), Oral, Daily, # 30 tab(s), 2 Refill(s), Start Date: 04/24/14 16:04:00 GENERATION ENGINEERING TECHNOLOGIST, [place] [facility] [place] Start Date: 04/24/14 Stop Date: 07/28/14 Status: CompletedToprol-XL 25 mg oral tablet, extended release 1 tab(s), Oral, Daily, # 30 tab(s), 0 Refill(s), Start Date: 03/30/15 8:50:13 GENERATION ENGINEERING TECHNOLOGIST, [place] [facility] [place] Start Date: 03/30/15 Stop Date: 04/27/15 Status: CompletedToprol-XL 25 mg oral tablet, extended release 1 tab(s), Oral, Daily, # 90 tab(s), 1 Refill(s), Start Date: 04/27/15 8:48:35 GENERATION ENGINEERING TECHNOLOGIST, [place] [facility] [place] Start Date: 04/27/15 Stop Date: 11/09/15 Status: CompletedToprol-XL 25 mg oral tablet, extended release 1 tab(s), Oral, Daily, # 30 tab(s), 5 Refill(s), Start Date: 08/18/14 9:33:12 CDT, [place] [facility] [place] Start Date: 08/18/14 Stop Date: 02/24/15 Status: CompletedToprol-XL 25 mg oral tablet, extended release 1 tab(s), Oral, Daily, # 30 tab(s), 0 Refill(s), Start Date: 07/28/14 10:44:21 CDT, [facility] [facility] [place] Start Date: 07/28/14 Stop Date: 08/18/14 Status: CompletedToprol-XL 25 mg oral tablet, extended release 1 tab(s), Oral, Daily, # 90 tab(s), 1 Refill(s), Start Date: 11/09/15 9:20:27 CDT, [facility] [place] Start Date: 11/09/15 Status: OrderedToprol-XL 25 mg oral tablet, extended release 1 tab(s), Oral, Daily, # 30 tab(s), 0 Refill(s), Start Date: 02/24/15 13:29:31 GENERATION ENGINEERING TECHNOLOGIST, Pharmacy: [place], [place] Start Date: 02/24/15 Stop Date: 03/30/15 Status: CompletedToujeo SoloStar 300 units/mL subcutaneous solution 40 units, Subcutaneous, BID, 0 Refill(s), Start Date: 03/11/16 16:04:00 GENERATION ENGINEERING TECHNOLOGIST Start Date: 03/11/16 Status: OrderedTradjenta 5 mg oral tablet 1 tab(s), Oral, Daily, # 30 tab(s), 11 Refill(s), [facility] [place] Start Date: 09/11/13 Stop Date: 02/25/14 Status: DiscontinuedTradjenta 5 mg oral tablet 1 tab(s), Oral, Daily, # 30 tab(s), 0 Refill(s) Start Date: 08/09/13 Stop Date: 09/11/13 Status: DiscontinuedtraMADol 50 mg oral tablet 1 tab(s), Oral, q6hr interval, maximum 6 in 24 hour period, # 120 tab(s), 2 Refill(s), Start Date: 10/06/15 14:28:41 CDT Start Date: 10/06/15 Status: OrderedtraMADol 50 mg oral tablet See Instructions, PRN for pain, take 1 tablet by ORAL route every 4 hours as needed, 0 Refill(s) Start Date: 08/09/13 Stop Date: 09/11/13 Status: DiscontinuedtraMADol 50 mg oral tablet See Instructions, PRN for pain, take 1 - 2 Tablet (50MG) by oral route every 6 hours as needed, 0 Refill(s) Start Date: 08/09/13 Stop Date: 09/11/13 Status: DiscontinuedtraMADol 50 mg oral tablet 1 tab(s), Oral, q6hr interval, maximum 6 in 24 hour period, # 120 tab(s), 2 Refill(s), Start Date: 02/18/14 14:45:00 GENERATION ENGINEERING TECHNOLOGIST Start Date: 02/18/14 Stop Date: 10/06/15 Status: Discontinuedtriamcinolone 0.1% topical cream 1 norbert, Topical, BID, X 14 days, # 30 gm, 0 Refill(s), Start Date: 09/10/15 13:47 :00 CDT, [facility] [place] Start Date: 09/10/15 Stop Date: 09/24/15 [...] No data available for this section Immunizations Given and Recorded Vaccine Date Status Refusal Reason influenza virus vaccine, inactivated 12/16/14 Recorded tetanus/diphtheria/pertussis, acel(Tdap) 10/06/09 Recorded Procedures Procedure Date Related Diagnosis Body Site Balloon kyphoplasty of fracture of spine 10/24/13 Rt Shoulder scope with RCR 08/21/12 Arthroscopy left shoulder 2010 Hernia repair 2009 laparoscopic ventral hernia repair 2009 Hysterectomy 2006 removal of Ovarian cyst 1998 Cholecystectomy 1992 Pregnancies x 3 RELL BSO - Total abdominal hysterectomy and bilateral salpingo-oophorectomy Social History No data available for this section Assessment and Plan No data available for this section
--- OUTSIDE RECORDS SUMMARY | 2016-09-26 02:03 | XMS REPORT | Summary of Care ---
:1965 Author Organization [facility] Address [address] [place] [id number] Care Team Providers Name Role Phone Dany Bajwa Primary Care Physician Encounter Date(s): 04/19/16 - 04/19/[address] [id number] [place] Discharge Disposition: 01 Discharged to Home or Self Care Referring Physician: Dany Bajwa MD Vital Signs No data available for this [...] # 30 cap(s), 0 Refill(s), [place] Start Date: 07/21/13 Stop Date: 07/31/13 Status: Completedaspirin 81 mg oral tablet 1 tab(s), Oral, Daily, 0 Refill(s) Start Date: 10/07/13 Status: OrderedAugmentin 875 mg-125 mg oral tablet 1 tab(s), Oral, q12hr, # 20 tab(s), 0 Refill(s), Start Date: 02/15/14 9:22:00 INDUSTRIAL [employer]ODUCTION OPERATOR, [place] [facility] [place] Start Date: 02/15/14 Stop Date: 02/25/14 Status: DiscontinuedBactrim 400 mg-80 mg oral tablet 1 tab(s), Oral, Daily, PRN other (see comment), postcoital, X 90 days, # 20 tab( s), 3 Refill(s), Start Date: 12/15/15 15:47:00 CDT, [facility] [place] Special Instructions: postcoital Start Date: 12/15/15 Stop Date: 12/09/16 Status: OrderedBactrim DS 800 mg-160 mg oral tablet 1 tab(s), Oral, BID, X 7 days, # 14 tab(s), 0 Refill(s), Start Date: 04/16/14 13 :47:00 INDUSTRIAL [employer]ODUCTION OPERATOR Start Date: 04/16/14 Stop Date: 04/23/14 Status: Completedcephalexin 500 mg oral tablet 1 tab(s), Oral, TID, # 21 tab(s), 0 Refill(s), Start Date: 12/10/15 16:22:00 CDT , [facility] [place] Start Date: 12/10/15 Stop Date: 01/18/16 Status: CompletedCipro 500 mg oral tablet 1 tab(s), Oral, Daily, X 7 days, # 7 tab(s), 0 Refill(s), Start Date: 09/27/14 9 :46:00 CDT, [facility] [facility] [place] Start Date: 09/27/14 Stop Date: 10/04/14 Status: CompletedCipro 500 mg oral tablet 1 tab(s), Oral, q12hr, # 10 tab(s), 0 Refill(s), Start Date: 03/18/15 13:05:00 INDUSTRIAL GAS PRODUCTION OPERATOR, [facility] [facility] [place] Start Date: 03/18/15 Stop Date: 04/09/15 Status: CompletedCipro 500 mg oral tablet 1 tab(s), Oral, q12hr, X 7 days, # 14 tab(s), 0 Refill(s), Start Date: 04/16/14 13:56:00 IND[employer]RIAL [employer] OPERATOR Start Date: 04/16/14 Stop Date: 04/23/14 Status: CompletedCipro 500 mg oral tablet 1 tab(s), Oral, q12hr, X 7 days, # 14 tab(s), 0 Refill(s), Start Date: 07/28/15 13:09:00 CDT, [facility] [facility] [place] Start Date: 07/28/15 Stop Date: 08/14/15 Status: CompletedCipro 500 mg oral tablet 1 tab(s), Oral, q12hr, # 14 tab(s), 0 Refill(s), Start Date: 03/11/16 16:34:00 INDUSTRIAL GAS PRODUCTION OPERATOR, [facility] [place] Start Date: 03/11/16 Stop Date: 03/17/16 Status: CompletedCipro 500 mg oral tablet 1 tab(s), Oral, q12hr, # 14 tab(s), 0 Refill(s), Start Date: 08/14/15 14:07:40 CDT, [facility] [place] Start Date: 08/14/15 Stop Date: 09/10/15 Status: CompletedCo Q-10 100 mg oral capsule 1 cap(s), Oral, Daily, 0 Refill(s), Start Date: 08/09/13 8:32:00 CDT Start Date: 08/09/13 Status: Orderedcyclobenzaprine 10 mg oral tablet 1 tab(s), Oral, TID, PRN for spasm, # 90 tab(s), 0 Refill(s), [facility] [facility] [place] Start Date: 09/30/13 Stop Date: 10/29/13 Status: Completedcyclobenzaprine 10 mg oral tablet 1 tab(s), Oral, TID, PRN as needed for muscle spasm, # 30 tab(s), 0 Refill(s), Start Date: 08/18/14 9:33:10 CDT, [facility] [place] Start Date: 08/18/14 Status: Orderedcyclobenzaprine 10 mg oral tablet 1 tab(s), Oral, TID, PRN as needed for muscle spasm, # 90 tab(s), 5 Refill(s), Start Date: 10/29/13 11:04:53 CDT, [place] [place] Start Date: 10/29/13 Stop Date: 08/18/14 Status: CompletedCymbalta 60 mg, Oral, qPM, 0 Refill(s), Start Date: 07/21/13 12:05:00 CDT Start Date: 07/21/13 Status: OrderedFlorastor 250 mg oral capsule 1 cap(s), Oral, BID, # 20 cap(s), 0 Refill(s), Start Date: 03/18/15 13:04:00 INDUSTRIAL G[employer]ODUCTION OPERATOR , [place] [facility] [place] Start Date: 03/18/15 Stop Date: 04/09/15 Status: Completedibuprofen 800 mg oral tablet 1 tab(s), Oral, TID, # 90 tab(s), 5 Refill(s), Start Date: 10/06/15 14:28:12 CDT , [facility] [facility] [place] Start Date: 10/06/15 Status: Orderedibuprofen 800 mg oral tablet 1 tab(s), Oral, TID, # 90 tab(s), 0 Refill(s), [facility]: [facility] [place] Start Date: 09/30/13 Stop Date: 10/29/13 Status: Completedibuprofen 800 mg oral tablet 1 tab(s), Oral, TID, # 90 tab(s), 5 Refill(s), Start Date: 08/18/14 9:33:12 CDT , [facility] [facility] [place] Start Date: 08/18/14 Stop Date: 10/06/15 Status: Discontinuedibuprofen 800 mg oral tablet 1 tab(s), Oral, TID, # 90 tab(s), 5 Refill(s), Start Date: 02/18/14 14:47:00 INDUSTRIAL GAS PRODUCTION OPERATOR , [facility] [facility] [place] Start Date: 02/18/14 Stop Date: 6/22/15 Status: Completedibuprofen 800 mg oral tablet 1 tab(s), Oral, TID, # 90 tab(s), 5 Refill(s), Pharmacy: [place], [place] Start Date: 10/29/13 Stop Date: 02/25/14 Status: DiscontinuedInsulin Pen Lawrence 16" 31G 1 needle, Subcutaneous, QID, # 100 EA, 5 Refill(s), Pharmacy: [place], [place], Supply Start Date: 10/15/13 Stop Date: 06/06/14 Status: CompletedInsulin Pen Lawrence 07/12" 31G 1 needle, Subcutaneous, QID, Use 5 times daily and as needed; 250.00, insulin dependent diabetes mellitus., # 200 EA, 5 Refill(s), [facility] [place] Special Instructions: Use 5 times daily and as needed; 250.00, insulin dependent diabetes mellitus. Start Date: 06/06/14 Stop Date: 07/22/15 Status: CompletedInsulin Pen Lawrence 07/12" 31G 100 Lawrence, Subcutaneous, Daily, # 1 boxes, 0 Refill(s), Supply Start Date: 08/09/13 Stop Date: 10/15/13 Status: DiscontinuedKeflex 500 mg oral capsule 1 cap(s), Oral, BID, # 14 cap(s), 0 Refill(s), Start Date: 11/23/15 16:34:00 CDT , Pharmacy: [place], [place] Start Date: 11/23/15 Stop Date: 12/10/15 Status: CompletedLevemir Subcutaneous, 0 Refill(s) Start Date: 07/21/13 Stop Date: 08/10/13 Status: DiscontinuedLevemir 100 units/mL subcutaneous solution 60 units, Subcutaneous, BID, # 10 mL, 3 Refill(s), Pharmacy: [place], [place] Start Date: 08/12/13 Stop Date: 09/11/13 Status: DiscontinuedLevemir 100 units/mL subcutaneous solution 70 units, Subcutaneous, BID, # 100 units, 3 Refill(s) Start Date: 08/10/13 Stop Date: 08/12/13 Status: CompletedLevemir 100 units/mL subcutaneous solution 80 units, Subcutaneous, BID, dose change, # 1 QS, 5 Refill(s), [facility] [place] Special Instructions: dose change Start Date: 09/11/13 Stop Date: 09/12/13 Status: DiscontinuedLevemir 100 units/mL subcutaneous solution 80 units, Subcutaneous, BID, dose change, # 5 EA, 5 Refill(s), [facility] [place] Special Instructions: dose change Start Date: 09/12/13 Stop Date: 12/31/13 Status: CompletedLevemir FlexTouch 100 units/mL subcutaneous solution 80 units, Subcutaneous, BID, # 15 mL, 5 Refill(s), Start Date: 12/30/13 10:57: 00 INDUSTRIAL G[employer]ODUCTION OPERATOR, [facility] [place] Start Date: 12/30/13 Stop Date: 12/31/13 Status: CompletedLevemir FlexTouch 100 units/mL subcutaneous solution 80 units, Subcutaneous, BID, 0 Refill(s), Start Date: 12/30/13 10:56:00 INDUSTRIAL GAS [employer]ODUCTION OPERATOR Start Date: 12/30/13 Stop Date: 12/30/13 Status: DiscontinuedLevemir FlexTouch 100 units/mL subcutaneous solution 80 units, Subcutaneous, BID, # 60 mL, 3 Refill(s), Start Date: 12/31/13 8:31:03 INDUSTRIAL GAS PRODUCTION OPERATOR, [facility] [place] Start Date: 12/31/13 Stop Date: 06/30/14 Status: CompletedLevemir FlexTouch 100 units/mL subcutaneous solution 80 units, Subcutaneous, BID, NEEDS APPOINTMENT FOR FURTHER REFILLS., # 1 boxes, 0 Refill(s), Start Date: 06/30/14 11:11:59 CDT, [facility] [place] Special Instructions: NEEDS APPOINTMENT FOR FURTHER REFILLS. Start Date: 06/30/14 Stop Date: 01/18/16 Status: DiscontinuedLipitor Oral, HS, 0 Refill(s) Start Date: 07/21/13 Stop Date: 09/11/13 Status: DiscontinuedLipitor 40 mg oral tablet 1 tab(s), Oral, HS, # 30 tab(s), 11 Refill(s), [facility] [place] Start Date: 09/11/13 Stop Date: 02/25/14 Status: DiscontinuedLipitor 80 mg oral tablet 1 tab(s), Oral, Daily, # 90 tab(s), 1 Refill(s), Start Date: 10/06/15 14:27:53 CDT, [place] Start Date: 10/06/15 Stop Date: 04/19/16 Status: CompletedLipitor 80 mg oral tablet 1 tab(s), Oral, Daily, # 90 tab(s), 1 Refill(s), Start Date: 04/27/15 8:50:46 INDUSTRIAL GAS PRODUCTION OPERATOR, [place] Start Date: 04/27/15 Stop Date: 10/06/15 Status: DiscontinuedLipitor 80 mg oral tablet 1 tab(s), Oral, Daily, # 30 tab(s), 5 Refill(s), Start Date: 08/18/14 9:33:09 CDT, [place] Start Date: 08/18/14 Stop Date: 04/27/15 Status: CompletedLipitor 80 mg oral tablet 1 tab(s), Oral, Daily, # 90 tab(s), 1 Refill(s), Start Date: 04/19/16 16:38:20 INDUSTRIAL GAS PRODUCTION OPERATOR, [place] [place] Start Date: 04/19/16 Status: OrderedLipitor 80 mg oral tablet 1 tab(s), Oral, Daily, # 90 tab(s), 1 Refill(s), Start Date: 02/25/14 11:02:00 INDUSTRIAL GAS PRODUCTION OPERATOR, [place] [facility] [place] Start Date: 02/25/14 Stop Date: 08/18/14 Status: Completedlisinopril 2.5 mg oral tablet 1 tab(s), Oral, Daily, # 90 tab(s), 1 Refill(s), Start Date: 10/06/15 14:28:19 CDT, [place] Start Date: 10/06/15 Stop Date: 04/19/16 Status: Completedlisinopril 2.5 mg oral tablet 1 tab(s), Oral, Daily, # 90 tab(s), 1 Refill(s), Start Date: 02/25/14 11:01:00 INDUSTRIAL GAS PRODUCTION OPERATOR, [place] Start Date: 02/25/14 Stop Date: 08/04/14 Status: Completedlisinopril 2.5 mg oral tablet 1 tab(s), Oral, Daily, # 90 tab(s), 1 Refill(s), Start Date: 04/27/15 8:50:29 INDUSTRIAL GAS PRODUCTION OPERATOR, [place] Start Date: 04/27/15 Stop Date: 10/06/15 Status: Discontinuedlisinopril 2.5 mg oral tablet 1 tab(s), Oral, Daily, # 30 tab(s), 0 Refill(s), Start Date: 03/30/15 8:50:25 INDUSTRIAL GAS PRODUCTION OPERATOR, [facility] [facility] [place] Start Date: 03/30/15 Stop Date: 04/27/15 Status: Completedlisinopril 2.5 mg oral tablet 1 tab(s), Oral, Daily, # 30 tab(s), 5 Refill(s), Start Date: 08/18/14 9:33:11 CDT, [place] Start Date: 08/18/14 Stop Date: 02/24/15 Status: Completedlisinopril 2.5 mg oral tablet 1 tab(s), Oral, Daily, # 30 tab(s), 0 Refill(s), Start Date: 08/04/14 15:05:18 CDT, [place] Start Date: 08/04/14 Stop Date: 08/18/14 Status: Completedlisinopril 2.5 mg oral tablet 1 tab(s), Oral, Daily, # 90 tab(s), 0 Refill(s), Start Date: 04/19/16 8:41:55 INDUSTRIAL GAS PRODUCTION OPERATOR, [place] [facility] [place] Start Date: 04/19/16 Status: Orderedlisinopril 2.5 mg oral tablet 1 tab(s), Oral, Daily, # 30 tab(s), 0 Refill(s), Start Date: 02/24/15 13:29:23 INDUSTRIAL GAS PRODUCTION OPERATOR, [place] [facility] [place] Start Date: 02/24/15 Stop Date: 03/30/15 Status: Completedlisinopril 20 mg oral tablet 1 tab(s), Oral, Daily, # 14 tab(s), 0 Refill(s), Start Date: 04/16/14 13:47:00 INDUSTRIAL GAS [employer]ODUCTION OPERATOR Start Date: 04/16/14 Stop Date: 04/24/14 Status: Discontinuedlisinopril 20 mg oral tablet 1 tab(s), Oral, Daily, X 14 days, # 14 tab(s), 0 Refill(s), Start Date: 13:56:00 INDUSTRIAL GAS [employer]ODUCTION OPERATOR Start Date: 04/16/14 Stop Date: 04/24/14 Status: DiscontinuedLORazepam 1 mg oral tablet 1 tab(s), Oral, HS, 0 Refill(s), Start Date: 03/17/16 15:20:00 INDUSTRIAL G[employer]ODUCTION OPERATOR Start Date: 03/17/16 Status: Orderedmeloxicam 15 mg oral tablet 1 tab(s), Oral, Daily, 0 Refill(s) Start Date: 08/09/13 Stop Date: 09/11/13 Status: DiscontinuedmetFORMIN 500 mg oral tablet 1 tab(s), Oral, Daily, 0 Refill(s) Start Date: 10/07/13 Status: Orderedmethylphenidate 10 mg oral tablet 1-2 tab(s), Oral, TID, 0 Refill(s), Start Date: 03/16/15 14:45:00 INDUSTRIAL G[employer] PRODUCTION OPERATOR Start Date: 03/16/15 Status: Orderedmultivitamin 1 tab(s), Oral, Daily, 0 Refill(s), Start Date: 08/09/13 8:33:00 CDT Start Date: 08/09/13 Status: OrderedNovoLOG Subcutaneous, TIDAC, 0 Refill(s) Start Date: 07/21/13 Status: OrderedPen Lawrence Short 31G 8mm See Instructions, up to 5 times daily with insulin pens; diagnosis E11.9, # 200 EA, 5 Refill(s), [facility] [facility] [place] Special Instructions: up to 5 times daily with insulin pens; diagnosis E11.9 Start Date: 07/22/15 Stop Date: 12/14/15 Status: CompletedPen Lawrence Short 31G 8mm See Instructions, up to 5 times daily with insulin pens, 0 Refill(s), Supply Special Instructions: up to 5 times daily with insulin pens Start Date: 07/22/15 Stop Date: 07/22/15 Status: DiscontinuedPen Lawrence Short 31G 8mm See Instructions, up to 5 times daily with insulin pens; diagnosis E11.9, # 200 EA, 5 Refill(s), [facility] [facility] [place] Special Instructions: up to 5 [...] Start Date: 10/06/15 14:29:00 CDT , [facility] [place] Start Date: 10/06/15 Stop Date: 11/23/15 Status: DiscontinuedPriLOSEC 20 mg oral delayed release capsule 1 cap(s), Oral, Daily, # 30 cap(s), 11 Refill(s), [facility] [place] [place] Start Date: 09/11/13 Status: OrderedPriLOSEC 20 mg oral delayed release capsule 1 cap(s), Oral, Daily, 0 Refill(s) Start Date: 08/09/13 Stop Date: 09/11/13 Status: DiscontinuedQvar 40 mcg/inh inhalation aerosol 2 puff(s), Inhale, BID, # 1 EA, 0 Refill(s), [facility] [facility] [place] Start Date: 07/21/13 Stop Date: 08/20/13 Status: CompletedTamiflu 75 mg oral capsule 1 cap(s), Oral, BID, # 14 cap(s), 0 Refill(s), Start Date: 04/19/16 14:36:00 INDUSTRIAL GAS PRODUCTION OPERATOR , [facility] [facility] [place] Start Date: 04/19/16 Stop Date: 04/26/16 Status: OrderedTest Strips Other (See Comment) blood sugar diagnostic Strips, 0 Refill(s), Supply Special Instructions: blood sugar diagnostic Strips Start Date: 08/09/13 Stop Date: 03/16/15 Status: CompletedToprol-XL 25 mg oral tablet, extended release 1 tab(s), Oral, Daily, # 30 tab(s), 2 Refill(s), Start Date: 04/24/14 16:04:00 INDUSTRIAL GAS PRODUCTION OPERATOR, [facility] [place] Start Date: 04/24/14 Stop Date: 07/28/14 Status: CompletedToprol-XL 25 mg oral tablet, extended release 1 tab(s), Oral, Daily, # 30 tab(s), 0 Refill(s), Start Date: 03/30/15 8:50:13 INDUSTRIAL GAS PRODUCTION OPERATOR, [place] [facility] [place] Start Date: 03/30/15 Stop Date: 04/27/15 Status: CompletedToprol-XL 25 mg oral tablet, extended release 1 tab(s), Oral, Daily, # 90 tab(s), 1 Refill(s), Start Date: 04/27/15 8:48:35 INDUSTRIAL GAS PRODUCTION OPERATOR, [facility] [facility] [place] Start Date: 04/27/15 Stop Date: 11/09/15 Status: CompletedToprol-XL 25 mg oral tablet, extended release 1 tab(s), Oral, Daily, # 30 tab(s), 5 Refill(s), Start Date: 08/18/14 9:33:12 CDT, [facility] [facility] [place] Start Date: 08/18/14 Stop Date: 02/24/15 Status: CompletedToprol-XL 25 mg oral tablet, extended release 1 tab(s), Oral, Daily, # 30 tab(s), 0 Refill(s), Start Date: 07/28/14 10:44:21 CDT, Pharmacy: [facility] [place], [place] Start Date: 07/28/14 Stop Date: 08/18/14 Status: CompletedToprol-XL 25 mg oral tablet, extended release 1 tab(s), Oral, Daily, # 90 tab(s), 1 Refill(s), Start Date: 11/09/15 9:20:27 CDT, Pharmacy: [place], [place] Start Date: 11/09/15 Status: OrderedToprol-XL 25 mg oral tablet, extended release 1 tab(s), Oral, Daily, # 30 tab(s), 0 Refill(s), Start Date: 02/24/15 13:29:31 INDUSTRIAL GAS PRODUCTION OPERATOR, Pharmacy: [place], [place] Start Date: 02/24/15 Stop Date: 03/30/15 Status: CompletedToujeo SoloStar 300 units/mL subcutaneous solution 40 units, Subcutaneous, BID, 0 Refill(s), Start Date: 03/11/16 16:04:00 INDUSTRIAL GAS [employer]ODUCTION OPERATOR Start Date: 03/11/16 Status: OrderedTradjenta 5 mg oral tablet 1 tab(s), Oral, Daily, # 30 tab(s), 11 Refill(s), Pharmacy: [place], [place] Start Date: 09/11/13 Stop Date: 02/25/14 [...] tab(s), 2 Refill(s), Start Date: 02/18/14 14:45:00 INDUSTRIAL G[employer]ODUCTION OPERATOR Special Instructions: maximum 6 in 24 hour period Start Date: 02/18/14 Stop Date: 10/06/15 Status: Discontinuedtriamcinolone 0.1% topical cream 1 norbert, Topical, BID, X 14 days, # 30 gm, 0 Refill(s), Start Date: 09/10/15 13:47 :00 CDT, [facility] [place] Start Date: 09/10/15 Stop Date: 09/24/15 [...]
--- OUTSIDE RECORDS SUMMARY | 2016-09-26 02:03 | XMS REPORT | Summary of Care ---
:1965 Author Organization [facility] Address [address] [place] [id number] Care Team Providers Name Role Phone Dany Bajwa Primary Care Physician Encounter Date(s): 05/16/16 - 05/16/[address] [id number] [place] Discharge Disposition: 01 Discharged to Home or Self Care Attending Physician: Dany Bajwa MD Referring Physician: Dany Bajwa MD Vital Signs [...] # 30 cap(s), 0 Refill(s), [facility] [place] [place] Start Date: 07/21/13 Stop Date: 07/31/13 Status: Completedaspirin 81 mg oral tablet 1 tab(s), Oral, Daily, 0 Refill(s) Start Date: 10/07/13 Status: OrderedAugmentin 875 mg-125 mg oral tablet 1 tab(s), Oral, q12hr, # 20 tab(s), 0 Refill(s), Start Date: 02/15/14 9:22:00 PATIENT ACCESS MANAGER, [facility] [facility] [place] [place] Start Date: 02/15/14 Stop Date: 02/25/14 Status: DiscontinuedBactrim 400 mg-80 mg oral tablet 1 tab(s), Oral, Daily, PRN other (see comment), postcoital, X 90 days, # 20 tab( s), 3 Refill(s), Start Date: 12/15/15 15:47:00 CDT, [facility] [place] [place] Special Instructions: postcoital Start Date: 12/15/15 Stop Date: 12/09/16 Status: OrderedBactrim DS 800 mg-160 mg oral tablet 1 tab(s), Oral, BID, X 7 days, # 14 tab(s), 0 Refill(s), Start Date: 04/16/14 13 :47:00 PATIENT ACCESS MANAGER Start Date: 04/16/14 Stop Date: 04/23/14 Status: Completedcephalexin 500 mg oral tablet 1 tab(s), Oral, TID, # 21 tab(s), 0 Refill(s), Start Date: 12/10/15 16:22:00 CDT , [place] [facility] [place] Start Date: 12/10/15 Stop Date: 01/18/16 Status: CompletedCipro 500 mg oral tablet 1 tab(s), Oral, Daily, X 7 days, # 7 tab(s), 0 Refill(s), Start Date: 09/27/14 9 :46:00 CDT, [facility] [facility] [place] Start Date: 09/27/14 Stop Date: 10/04/14 Status: CompletedCipro 500 mg oral tablet 1 tab(s), Oral, q12hr, # 10 tab(s), 0 Refill(s), Start Date: 03/18/15 13:05:00 PATIENT ACCESS MANAGER, [facility] [place] [place] [place] Start Date: 03/18/15 Stop Date: 04/09/15 Status: CompletedCipro 500 mg oral tablet 1 tab(s), Oral, q12hr, X 7 days, # 14 tab(s), 0 Refill(s), Start Date: 04/16/14 13:56:00 PATIENT ACCESS MANAGER Start Date: 04/16/14 Stop Date: 04/23/14 Status: CompletedCipro 500 mg oral tablet 1 tab(s), Oral, q12hr, X 7 days, # 14 tab(s), 0 Refill(s), Start Date: 07/28/15 13:09:00 CDT, [facility] [facility] [place] Start Date: 07/28/15 Stop Date: 08/14/15 Status: CompletedCipro 500 mg oral tablet 1 tab(s), Oral, q12hr, # 14 tab(s), 0 Refill(s), Start Date: 03/11/16 16:34:00 PATIENT ACCESS MANAGER, [place] [facility] [place] Start Date: 03/11/16 Stop Date: 03/17/16 Status: CompletedCipro 500 mg oral tablet 1 tab(s), Oral, q12hr, # 14 tab(s), 0 Refill(s), Start Date: 08/14/15 14:07:40 CDT, [facility] [place] Start Date: 08/14/15 Stop Date: 09/10/15 Status: CompletedCo Q-10 100 mg oral capsule 1 cap(s), Oral, Daily, 0 Refill(s), Start Date: 08/09/13 8:32:00 CDT Start Date: 08/09/13 Status: Orderedcyclobenzaprine 10 mg oral tablet 1 tab(s), Oral, TID, PRN for spasm, # 90 tab(s), 0 Refill(s), [facility] [facility] [place] Start Date: 09/30/13 Stop Date: 10/29/13 Status: Completedcyclobenzaprine 10 mg oral tablet 1 tab(s), Oral, TID, PRN as needed for muscle spasm, # 30 tab(s), 0 Refill(s), Start Date: 08/18/14 9:33:10 CDT, [place] [facility] [place] Start Date: 6/22/15 Status: Orderedcyclobenzaprine 10 mg oral tablet 1 tab(s), Oral, TID, PRN as needed for muscle spasm, # 90 tab(s), 5 Refill(s), Start Date: 10/29/13 11:04:53 CDT, [facility] [facility] [place] Start Date: 10/29/13 Stop Date: 08/18/14 Status: CompletedCymbalta 60 mg, Oral, qPM, 0 Refill(s), Start Date: 07/21/13 12:05:00 CDT Start Date: 07/21/13 Status: OrderedFlorastor 250 mg oral capsule 1 cap(s), Oral, BID, # 20 cap(s), 0 Refill(s), Start Date: 03/18/15 13:04:00 PATIENT ACCESS MANAGER , [facility] [place] Start Date: 03/18/15 Stop Date: 04/09/15 Status: Completedibuprofen 800 mg oral tablet 1 tab(s), Oral, TID, # 90 tab(s), 5 Refill(s), Start Date: 10/06/15 14:28:12 CDT , [facility] [place] [place] Start Date: 10/06/15 Status: Orderedibuprofen 800 mg oral tablet 1 tab(s), Oral, TID, # 90 tab(s), 0 Refill(s), [facility] [place] [place] Start Date: 09/30/13 Stop Date: 10/29/13 Status: Completedibuprofen 800 mg oral tablet 1 tab(s), Oral, TID, # 90 tab(s), 5 Refill(s), Start Date: 08/18/14 9:33:12 CDT , [facility] [facility] [place] Start Date: 08/18/14 Stop Date: 10/06/15 Status: Discontinuedibuprofen 800 mg oral tablet 1 tab(s), Oral, TID, # 90 tab(s), 5 Refill(s), Start Date: 02/18/14 14:47:00 PATIENT ACCESS MANAGER , [facility] [place] [place] Start Date: 02/18/14 Stop Date: 08/18/14 Status: Completedibuprofen 800 mg oral tablet 1 tab(s), Oral, TID, # 90 tab(s), 5 Refill(s), [facility] [place] [place] Start Date: 10/29/13 Stop Date: 02/25/14 Status: DiscontinuedInsulin Pen Conway 16" 31G 1 needle, Subcutaneous, QID, # 100 EA, 5 Refill(s), [facility] [place] Start Date: 10/15/13 Stop Date: 06/06/14 Status: CompletedInsulin Pen Conway 07/12" 31G 1 needle, Subcutaneous, QID, Use 5 times daily and as needed; 250.00, insulin dependent diabetes mellitus., # 200 EA, 5 Refill(s), [facility] [place] Special Instructions: Use 5 times daily and as needed; 250.00, insulin dependent diabetes mellitus. Start Date: 06/06/14 Stop Date: 07/22/15 Status: CompletedInsulin Pen Conway 07/12" 31G 100 Conway, Subcutaneous, Daily, # 1 boxes, 0 Refill(s), Supply Start Date: 08/09/13 Stop Date: 10/15/13 Status: DiscontinuedKeflex 500 mg oral capsule 1 cap(s), Oral, BID, # 14 cap(s), 0 Refill(s), Start Date: 11/23/15 16:34:00 CDT , [facility] [place] [place] Start Date: 11/23/15 Stop Date: 12/10/15 Status: CompletedLevemir Subcutaneous, 0 Refill(s) Start Date: 07/21/13 Stop Date: 08/10/13 Status: DiscontinuedLevemir 100 units/mL subcutaneous solution 60 units, Subcutaneous, BID, # 10 mL, 3 Refill(s), [facility] [place] [place] Start Date: 08/12/13 Stop Date: 09/11/13 Status: DiscontinuedLevemir 100 units/mL subcutaneous solution 70 units, Subcutaneous, BID, # 100 units, 3 Refill(s) Start Date: 08/10/13 Stop Date: 08/12/13 Status: CompletedLevemir 100 units/mL subcutaneous solution 80 units, Subcutaneous, BID, dose change, # 1 QS, 5 Refill(s), [place] [facility] [place] Special [place]ructions: dose change Start Date: 09/11/13 Stop Date: 09/12/13 Status: DiscontinuedLevemir 100 units/mL subcutaneous solution 80 units, Subcutaneous, BID, dose change, # 5 EA, 5 Refill(s), [facility] [facility] [place] Special Instructions: dose change Start Date: 09/12/13 Stop Date: 12/31/13 Status: CompletedLevemir FlexTouch 100 units/mL subcutaneous solution 80 units, Subcutaneous, BID, # 15 mL, 5 Refill(s), Start Date: 12/30/13 10:57: 00 PATIENT ACCESS MANAGER, [facility] [place] [place] Start Date: 12/30/13 Stop Date: 12/31/13 Status: CompletedLevemir FlexTouch 100 units/mL subcutaneous solution 80 units, Subcutaneous, BID, 0 Refill(s), Start Date: 12/30/13 10:56:00 PATIENT ACCESS MANAGER Start Date: 12/30/13 Stop Date: 12/30/13 Status: DiscontinuedLevemir FlexTouch 100 units/mL subcutaneous solution 80 units, Subcutaneous, BID, # 60 mL, 3 Refill(s), Start Date: 12/31/13 8:31:03 PATIENT ACCESS MANAGER, [facility] [place] [place] Start Date: 12/31/13 Stop Date: 06/30/14 Status: CompletedLevemir FlexTouch 100 units/mL subcutaneous solution 80 units, Subcutaneous, BID, NEEDS APPOINTMENT FOR FURTHER REFILLS., # 1 boxes, 0 Refill(s), Start Date: 06/30/14 11:11:59 CDT, [facility] [place] [place] Special Instructions: NEEDS APPOINTMENT FOR FURTHER REFILLS. Start Date: 06/30/14 Stop Date: 01/18/16 Status: DiscontinuedLipitor Oral, HS, 0 Refill(s) Start Date: 07/21/13 Stop Date: 09/11/13 Status: DiscontinuedLipitor 40 mg oral tablet 1 tab(s), Oral, HS, # 30 tab(s), 11 Refill(s), [facility]: [facility] [place] Start Date: 09/11/13 Stop Date: 02/25/14 Status: DiscontinuedLipitor 80 mg oral tablet 1 tab(s), Oral, Daily, # 90 tab(s), 1 Refill(s), Start Date: 10/06/15 14:27:53 CDT, [place] [facility] [place] Start Date: 10/06/15 Stop Date: 04/19/16 Status: CompletedLipitor 80 mg oral tablet 1 tab(s), Oral, Daily, # 90 tab(s), 1 Refill(s), Start Date: 04/27/15 8:50:46 PATIENT ACCESS MANAGER, [place] [facility] [place] Start Date: 04/27/15 Stop Date: 10/06/15 Status: DiscontinuedLipitor 80 mg oral tablet 1 tab(s), Oral, Daily, # 30 tab(s), 5 Refill(s), Start Date: 08/18/14 9:33:09 CDT, [place] [facility] [place] Start Date: 08/18/14 Stop Date: 04/27/15 Status: CompletedLipitor 80 mg oral tablet 1 tab(s), Oral, Daily, # 90 tab(s), 1 Refill(s), Start Date: 04/19/16 16:38:20 PATIENT ACCESS MANAGER, [place] [facility] [place] Start Date: 04/19/16 Status: OrderedLipitor 80 mg oral tablet 1 tab(s), Oral, Daily, # 90 tab(s), 1 Refill(s), Start Date: 02/25/14 11:02:00 PATIENT ACCESS MANAGER, [facility] [facility] [place] Start Date: 02/25/14 Stop Date: 08/18/14 Status: Completedlisinopril 2.5 mg oral tablet 1 tab(s), Oral, Daily, # 90 tab(s), 1 Refill(s), Start Date: 10/06/15 14:28:19 CDT, [place] [facility] [place] Start Date: 10/06/15 Stop Date: 04/19/16 Status: Completedlisinopril 2.5 mg oral tablet 1 tab(s), Oral, Daily, # 90 tab(s), 1 Refill(s), Start Date: 02/25/14 11:01:00 PATIENT ACCESS MANAGER, [facility] [facility] [place] Start Date: 02/25/14 Stop Date: 08/04/14 Status: Completedlisinopril 2.5 mg oral tablet 1 tab(s), Oral, Daily, # 90 tab(s), 1 Refill(s), Start Date: 04/27/15 8:50:29 PATIENT ACCESS MANAGER, [place] [facility] [place] Start Date: 04/27/15 Stop Date: 10/06/15 Status: Discontinuedlisinopril 2.5 mg oral tablet 1 tab(s), Oral, Daily, # 30 tab(s), 0 Refill(s), Start Date: 03/30/15 8:50:25 PATIENT ACCESS MANAGER, [place] [facility] [place] Start Date: 03/30/15 Stop Date: 04/27/15 Status: Completedlisinopril 2.5 mg oral tablet 1 tab(s), Oral, Daily, # 30 tab(s), 5 Refill(s), Start Date: 08/18/14 9:33:11 CDT, [place] [facility] [place] Start Date: 08/18/14 Stop Date: 02/24/15 Status: Completedlisinopril 2.5 mg oral tablet 1 tab(s), Oral, Daily, # 30 tab(s), 0 Refill(s), Start Date: 08/04/14 15:05:18 CDT, [facility] [facility] [place] Start Date: 08/04/14 Stop Date: 08/18/14 Status: Completedlisinopril 2.5 mg oral tablet 1 tab(s), Oral, Daily, # 90 tab(s), 0 Refill(s), Start Date: 04/19/16 8:41:55 PATIENT ACCESS MANAGER, [facility] [facility] [place] Start Date: 04/19/16 Status: Orderedlisinopril 2.5 mg oral tablet 1 tab(s), Oral, Daily, # 30 tab(s), 0 Refill(s), Start Date: 02/24/15 13:29:23 PATIENT ACCESS MANAGER, [place] [facility] [place] Start Date: 02/24/15 Stop Date: 03/30/15 Status: Completedlisinopril 20 mg oral tablet 1 tab(s), Oral, Daily, # 14 tab(s), 0 Refill(s), Start Date: 04/16/14 13:47:00 PATIENT ACCESS MANAGER Start Date: 04/16/14 Stop Date: 04/24/14 Status: Discontinuedlisinopril 20 mg oral tablet 1 tab(s), Oral, Daily, X 14 days, # 14 tab(s), 0 Refill(s), Start Date: 13:56:00 PATIENT ACCESS MANAGER Start Date: 04/16/14 Stop Date: 04/24/14 Status: DiscontinuedLORazepam 1 mg oral tablet 1 tab(s), Oral, HS, 0 Refill(s), Start Date: 03/17/16 15:20:00 PATIENT ACCESS MANAGER Start Date: 03/17/16 Status: Orderedmeloxicam 15 mg oral tablet 1 tab(s), Oral, Daily, 0 Refill(s) Start Date: 08/09/13 Stop Date: 09/11/13 Status: DiscontinuedmetFORMIN 500 mg oral tablet 1 tab(s), Oral, Daily, 0 Refill(s) Start Date: 10/07/13 Status: Orderedmethylphenidate 10 mg oral tablet 1-2 tab(s), Oral, TID, 0 Refill(s), Start Date: 03/16/15 14:45:00 PATIENT ACCESS MANAGER Start Date: 03/16/15 Status: Orderedmultivitamin 1 tab(s), Oral, Daily, 0 Refill(s), Start Date: 08/09/13 8:33:00 CDT Start Date: 08/09/13 Status: OrderedNovoLOG Subcutaneous, TIDAC, 0 Refill(s) Start Date: 07/21/13 Status: OrderedPen Conway Short 31G 8mm See Instructions, up to 5 times daily with insulin pens; diagnosis E11.9, # 200 EA, 5 Refill(s), [facility] [facility] [place] Special Instructions: up to 5 times daily with insulin pens; diagnosis E11.9 Start Date: 07/22/15 Stop Date: 12/14/15 Status: CompletedPen Conway Short 31G 8mm See Instructions, up to 5 times daily with insulin pens, 0 Refill(s), Supply Special Instructions: up to 5 times daily with insulin pens Start Date: 07/22/15 Stop Date: 07/22/15 Status: DiscontinuedPen Conway Short 31G 8mm See Instructions, up to 5 times daily with insulin pens; diagnosis E11.9, # 200 EA, 5 Refill(s), [facility] [place] [place] Special Instructions: up to 5 [...] Start Date: 10/06/15 14:29:00 CDT , Pharmacy: [place], [place] Start Date: 10/06/15 Stop Date: 11/23/15 Status: DiscontinuedPriLOSEC 20 mg oral delayed release capsule 1 cap(s), Oral, Daily, # 30 cap(s), 11 Refill(s), [facility] [place] Start Date: 09/11/13 Status: OrderedPriLOSEC 20 mg oral delayed release capsule 1 cap(s), Oral, Daily, 0 Refill(s) Start Date: 08/09/13 Stop Date: 09/11/13 Status: DiscontinuedQvar 40 mcg/inh inhalation aerosol 2 puff(s), Inhale, BID, # 1 EA, 0 Refill(s), [facility] [place] [place] Start Date: 07/21/13 Stop Date: 08/20/13 Status: CompletedTamiflu 75 mg oral capsule 1 cap(s), Oral, BID, # 14 cap(s), 0 Refill(s), Start Date: 04/19/16 14:36:00 PATIENT ACCESS MANAGER , [facility] [facility] [place] Start Date: 04/19/16 Stop Date: 04/26/16 Status: OrderedTest Strips Other (See Comment) blood sugar diagnostic Strips, 0 Refill(s), Supply Special Instructions: blood sugar diagnostic Strips Start Date: 08/09/13 Stop Date: 03/16/15 Status: CompletedToprol-XL 25 mg oral tablet, extended release 1 tab(s), Oral, Daily, # 30 tab(s), 2 Refill(s), Start Date: 04/24/14 16:04:00 PATIENT ACCESS MANAGER, [facility] [facility] [place] Start Date: 04/24/14 Stop Date: 07/28/14 Status: CompletedToprol-XL 25 mg oral tablet, extended release 1 tab(s), Oral, Daily, # 30 tab(s), 0 Refill(s), Start Date: 03/30/15 8:50:13 PATIENT ACCESS MANAGER, [facility] [facility] [place] Start Date: 03/30/15 Stop Date: 04/27/15 Status: CompletedToprol-XL 25 mg oral tablet, extended release 1 tab(s), Oral, Daily, # 90 tab(s), 1 Refill(s), Start Date: 04/27/15 8:48:35 PATIENT ACCESS MANAGER, [facility] [facility] [place] Start Date: 04/27/15 Stop Date: 11/09/15 Status: CompletedToprol-XL 25 mg oral tablet, extended release 1 tab(s), Oral, Daily, # 30 tab(s), 5 Refill(s), Start Date: 08/18/14 9:33:12 CDT, [place] [facility] [place] Start Date: 08/18/14 Stop Date: 02/24/15 Status: CompletedToprol-XL 25 mg oral tablet, extended release 1 tab(s), Oral, Daily, # 30 tab(s), 0 Refill(s), Start Date: 07/28/14 10:44:21 CDT, [facility] [facility] [place] Start Date: 07/28/14 Stop Date: 08/18/14 Status: CompletedToprol-XL 25 mg oral tablet, extended release 1 tab(s), Oral, Daily, # 90 tab(s), 1 Refill(s), Start Date: 11/09/15 9:20:27 CDT, [facility] [place] [place] Start Date: 11/09/15 Status: OrderedToprol-XL 25 mg oral tablet, extended release 1 tab(s), Oral, Daily, # 30 tab(s), 0 Refill(s), Start Date: 02/24/15 13:29:31 PATIENT ACCESS MANAGER, Pharmacy: [place], [place] Start Date: 02/24/15 Stop Date: 03/30/15 Status: CompletedToujeo SoloStar 300 units/mL subcutaneous solution 40 units, Subcutaneous, BID, 0 Refill(s), Start Date: 03/11/16 16:04:00 PATIENT ACCESS MANAGER Start Date: 03/11/16 Status: OrderedTradjenta 5 mg oral tablet 1 tab(s), Oral, Daily, # 30 tab(s), 11 Refill(s), [facility] [place] [place] Start Date: 09/11/13 Stop Date: 02/25/14 [...] tab(s), 2 Refill(s), Start Date: 02/18/14 14:45:00 PATIENT ACCESS MANAGER Special Instructions: maximum 6 in 24 hour period Start Date: 02/18/14 Stop Date: 10/06/15 Status: Discontinuedtriamcinolone 0.1% topical cream 1 norbert, Topical, BID, X 14 days, # 30 gm, 0 Refill(s), Start Date: 09/10/15 13:47 :00 CDT, [facility] [facility] [place] Start Date: 09/10/15 Stop Date: 09/24/15 Status: CompletedWellbutrin Oral, 0 Refill(s) Start Date: 07/21/13 Stop Date: 09/30/13 Status: DiscontinuedWellbutrin 100 mg oral tablet 1 tab(s), Oral, TID, 0 Refill(s) Start Date: 08/09/13 Status: OrderedZofran ODT 8 mg oral tablet, disintegrating 1 tab(s), Oral, TID, # 10 tab(s), 0 Refill(s) Start Date: 09/30/13 Stop Date: 02/18/14 Status: Completed Results Patient Viewable Results Most recent to oldest [Reference Range]: 1 Sodium Lvl [136-145 mmol/L] 140 mmol/L (05/16/16 8:15 AM) Potassium Lvl [3.5-5.1 mmol/L] 5.1 mmol/L (05/16/16 8:15 AM) Chloride Lvl [98-107 mmol/L] 103 mmol/L (05/16/16 8:15 AM) Bicarbonate Lvl [21-32 mmol/L] 29 mmol/L (05/16/16 8:15 AM) Anion Gap [12-19] 13 (05/16/16 8:15 AM) Glucose Lvl [74-106 mg/dL] 214 mg/dL *HI* (05/16/16 8:15 AM) BUN [7-18 mg/dL] 24 mg/dL *HI* (05/16/16 8:15 AM) Creatinine Lvl [0.55-1.02 mg/dL] 0.57 mg/dL (05/16/16 8:15 AM) BUN/Creat Ratio 42 *NA* (05/16/16 8:15 AM) eGFR AA [>=60] >60 (05/16/16 8:15 AM) eGFR MARIAN [>=60] >60 (05/16/16 8:15 AM) Calcium Lvl [8.5-10.1 mg/dL] 9.3 mg/dL (05/16/16 8:15 AM) Total Protein [6.4-8.2 g/dL] 6.9 g/dL (05/16/16 8:15 AM) Albumin Lvl [3.4-5.0 g/dL] 3.9 g/dL (05/16/16 8:15 AM) Globulin 3 g/dL *NA* (05/16/16 8:15 AM) A/G Ratio [1.0-2.0] 1.3 (05/16/16 8:15 AM) Bilirubin Total [0.2-1.0 mg/dL] 0.6 mg/dL (05/16/16 8:15 AM) Alkaline Phosphatase [46-116 unit/L] 98 unit/L (05/16/16 8:15 AM) AST [15-37 unit/L] 19 unit/L (05/16/16 8:15 AM) ALT [14-59 unit/L] 42 unit/L (05/16/16 8:15 AM) Glycated Hemoglobin [4.5-6.2 %] 7.6 % *HI* (05/16/16 8:15 AM) Estimated Average Glucose [64-120 mg/dL] 167 mg/dL *HI* (05/16/16 8:15 AM) Cholesterol Total [0-200 mg/dL] 181 mg/dL (05/16/16 8:15 AM) Triglyceride [0-200 mg/dL] 124 mg/dL (05/16/16 8:15 AM) HDL Cholesterol [40-60 mg/dL] 38 mg/dL *LOW* (05/16/16 8:15 AM) LDL Cholesterol (Direct) [0-130 mg/dL] 118 mg/dL (05/16/16 8:15 AM) Non HDL Cholesterol [0-160 mg/dL] 143 mg/dL (05/16/16 8:15 AM) Microalbumin, Ur 1253.6 mg/L *NA* (05/16/16 8:15 AM) Creatinine, Urine MA 228.44 mg/dL *NA* (05/16/16 8:15 AM) Ur Microalb/Creat Ratio [<=30 mg/g Cr] 549 mg/g Cr *HI* (05/16/16 8:15 AM) Immunizations Vaccine Date Refusal Reason influenza virus vaccine, inactivated 12/16/14 tetanus/diphtheria/pertussis, acel(Tdap) 10/06/09 Procedures Procedure Date Related Diagnosis Body Site Balloon kyphoplasty of fracture of spine 10/24/13 Rt Shoulder scope with RCR 08/21/12 Arthroscopy left shoulder 2010 Hernia repair 2009 laparoscopic ventral hernia repair 2009 Hysterectomy 2006 removal of Ovarian cyst 1999 Cholecystectomy 1992 Pregnancies x 3 RELL BSO - Total abdominal hysterectomy and bilateral salpingo-oophorectomy Social History No data available for this section Assessment and Plan No data available for this section
[2016-09-26] MEDS ORDERED: ONDANSETRON HCL/PF 2 MG/ML VIAL ONE ×2 (02:04→02:07)
--- OUTSIDE RECORDS SUMMARY | 2016-09-26 02:04 | XMS REPORT | Summary of Care ---
:1965 Author Organization [facility] Address [address] [place] [id number] Care Team Providers Name Role Phone Ayesha Ellis Primary Care Physician Encounter Date(s): 07/28/15 - 07/28/[address] [address] [facility] Discharge Diagnosis: Nausea Discharge Diagnosis: UTI (urinary tract infection) Discharge Diagnosis: Fever Discharge Disposition: 01 Discharged to Home or Self Care Attending Physician: YOAN Rust Referring Physician: Ayesha Ellis DO Vital Signs Most recent to oldest [Reference Range]: 1 Temperature Tympanic [36.6-38.1 DegC] 36.8 DegC (07/28/15 12:40 PM) Temperature C to F 98.2 (07/28/15 12:40 PM) Peripheral Pulse Rate [60-100 bpm] 97 bpm (07/28/15 12:40 PM) Respiratory Rate [12-20 br/min] 16 br/min (07/28/15 12:40 PM) SpO2 97 % (07/28/15 12:40 PM) Blood Pressure [90-130/60-90 mmHg] 126/76mmHg (07/28/15 12:40 PM) Mean Arterial Pressure, Cuff 93 mmHg (07/28/15 12:40 PM) Most recent to oldest [Reference Range]: 1 Height/Length Measured 162.50 cm (07/28/15 12:40 PM) Weight Dosing 125.90 kg1 (07/28/15 12:51 PM) Weight Measured 125.9 kg (07/28/15 12:40 PM) BSA Measured 2.25 m2 (07/28/15 12:40 PM) Body Mass Index Measured 47.68 kg/m2 (07/28/15 12:40 PM) 1Result Comment: This result was because the dosing weight was either not entered or it is>30 days old. This result is based off: Weight Measured July 28, 2015 12:40:00 CDT by Ivelisse Schaffer, ELIS Problem List Condition Effective Dates Status Health Status Informant Benign essential HTN(Confirmed) Active Chronic pain syndrome(Confirmed) Active Depression(Confirmed) Active Diabetes mellitus type II(Confirmed) < 08/09/13 Resolved Endometriosis(Confirmed) Active Hyperlipidemia NEC/NOS(Confirmed) Active Migraine(Confirmed) Active Obesity NOS(Confirmed) Active chronic Psychiatric Active illness(Confirmed) PTSD - Post-traumatic stress Active disorder(Confirmed) Left Shoulder labral tear(Confirmed) 2009 Active Allergies, Adverse Reactions, Alerts Substance Reaction Severity Status Compazine Active Demerol HCl Active nitrofurantoin severe headaches Active Nubain Active Phenergan Active sulfa drugs upset stomach Active Medications amoxicillin 500 mg oral capsule 1 cap(s), Oral, TID, X 10 days, # 30 cap(s), 0 Refill(s), [facility] [facility] [place] [place] Start Date: 07/21/13 Stop Date: 07/31/13 Status: Completedaspirin 81 mg oral tablet 1 tab(s), Oral, Daily, 0 Refill(s) Start Date: 10/07/13 Status: OrderedAugmentin 875 mg-125 mg oral tablet 1 tab(s), Oral, q12hr, # 20 tab(s), 0 Refill(s), Start Date: 02/15/14 9:22:00 CONTINUOUS CRUSHER OPERATOR, [facility] [place] Start Date: 02/15/14 Stop Date: 02/25/14 Status: DiscontinuedBactrim DS 800 mg-160 mg oral tablet 1 tab(s), Oral, BID, X 7 days, # 14 tab(s), 0 Refill(s), Start Date: 04/16/14 13 :47:00 CONTINUOUS CRUSHER OPERATOR Start Date: 04/16/14 Stop Date: 04/23/14 Status: CompletedCipro 500 mg oral tablet 1 tab(s), Oral, Daily, X 7 days, # 7 tab(s), 0 Refill(s), Start Date: 09/27/14 9 :46:00 CDT, [facility] [facility] Start Date: 09/27/14 Stop Date: 10/04/14 Status: CompletedCipro 500 mg oral tablet 1 tab(s), Oral, q12hr, # 10 tab(s), 0 Refill(s), Start Date: 03/18/15 13:05:00 CONTINUOUS CRUSHER OPERATOR, [facility] [facility] Start Date: 03/18/15 Stop Date: 04/09/15 Status: CompletedCipro 500 mg oral tablet 1 tab(s), Oral, q12hr, X 7 days, # 14 tab(s), 0 Refill(s), Start Date: 04/16/14 13:56:00 CONTINUOUS CRUSHER OPERATOR Start Date: 04/16/14 Stop Date: 04/23/14 Status: CompletedCipro 500 mg oral tablet 1 tab(s), Oral, q12hr, X 7 days, # 14 tab(s), 0 Refill(s), Start Date: 07/28/15 13:09:00 CDT, [facility] [place] Start Date: 07/28/15 Stop Date: 08/14/15 Status: CompletedCipro 500 mg oral tablet 1 tab(s), Oral, q12hr, # 14 tab(s), 0 Refill(s), Start Date: 08/14/15 14:07:40 CDT, [facility] [place] Start Date: 08/14/15 Stop Date: 08/21/15 Status: OrderedCo Q-10 100 mg oral capsule 1 cap(s), Oral, Daily, 0 Refill(s), Start Date: 08/09/13 8:32:00 CDT Start Date: 08/09/13 Status: Orderedcyclobenzaprine 10 mg oral tablet 1 tab(s), Oral, TID, PRN for spasm, # 90 tab(s), 0 Refill(s), [facility] [facility] [place] Start Date: 09/30/13 Stop Date: 10/29/13 Status: Completedcyclobenzaprine 10 mg oral tablet 1 tab(s), Oral, TID, PRN as needed for muscle spasm, # 30 tab(s), 0 Refill(s), Start Date: 08/18/14 9:33:10 CDT, [facility] [facility] [place] Start Date: 08/18/14 Status: Orderedcyclobenzaprine 10 mg oral tablet 1 tab(s), Oral, TID, PRN as needed for muscle spasm, # 90 tab(s), 5 Refill(s), Start Date: 10/29/13 11:04:53 CDT, [facility] [place] Start Date: 10/29/13 Stop Date: 08/18/14 Status: CompletedCymbalta 60 mg, Oral, qPM, 0 Refill(s), Start Date: 07/21/13 12:05:00 CDT Start Date: 07/21/13 Status: OrderedFlorastor 250 mg oral capsule 1 cap(s), Oral, BID, # 20 cap(s), 0 Refill(s), Start Date: 03/18/15 13:04:00 CONTINUOUS CRUSHER OPERATOR , [facility] [place] Start Date: 03/18/15 Stop Date: 04/09/15 Status: Completedibuprofen 800 mg oral tablet 1 tab(s), Oral, TID, # 90 tab(s), 0 Refill(s), [facility] [place] [place] Start Date: 09/30/13 Stop Date: 10/29/13 Status: Completedibuprofen 800 mg oral tablet 1 tab(s), Oral, TID, # 90 tab(s), 5 Refill(s), Start Date: 08/18/14 9:33:12 CDT , [facility] [place] Start Date: 08/18/14 Status: Orderedibuprofen 800 mg oral tablet 1 tab(s), Oral, TID, # 90 tab(s), 5 Refill(s), Start Date: 02/18/14 14:47:00 CONTINUOUS CRUSHER OPERATOR , [facility] [place] Start Date: 02/18/14 Stop Date: 08/18/14 Status: Completedibuprofen 800 mg oral tablet 1 tab(s), Oral, TID, # 90 tab(s), 5 Refill(s), [facility] [place] Start Date: 10/29/13 Stop Date: 02/25/14 Status: DiscontinuedInsulin Pen [place] /16" 31G 1 needle, Subcutaneous, QID, # 100 EA, 5 Refill(s), [facility] [place] [place] Start Date: 10/15/13 Stop Date: 06/06/14 Status: CompletedInsulin Pen [place] 16" 31G 1 needle, Subcutaneous, QID, Use 5 times daily and as needed; 250.00, insulin dependent diabetes mellitus., # 200 EA, 5 Refill(s), [facility] [place] [place] Special Instructions: Use 5 times daily and as needed; 250.00, insulin dependent diabetes mellitus. Start Date: 06/06/14 Stop Date: 07/22/15 Status: CompletedInsulin Pen [place] 07/12" 31G 100 [place], Subcutaneous, Daily, # 1 boxes, 0 Refill(s), Supply Start Date: 08/09/13 Stop Date: 10/15/13 Status: DiscontinuedLevemir Subcutaneous, 0 Refill(s) Start Date: 07/21/13 Stop Date: 08/10/13 Status: DiscontinuedLevemir 100 units/mL subcutaneous solution 60 units, Subcutaneous, BID, # 10 mL, 3 Refill(s), [facility] [place] [place] Start Date: 08/12/13 Stop Date: 09/11/13 Status: DiscontinuedLevemir 100 units/mL subcutaneous solution 70 units, Subcutaneous, BID, # 100 units, 3 Refill(s) Start Date: 08/10/13 Stop Date: 08/12/13 Status: CompletedLevemir 100 units/mL subcutaneous solution 80 units, Subcutaneous, BID, dose change, # 1 QS, 5 Refill(s), [facility] [place] [place] Special Instructions: dose change Start Date: 09/11/13 Stop Date: 09/12/13 Status: DiscontinuedLevemir 100 units/mL subcutaneous solution 80 units, Subcutaneous, BID, dose change, # 5 EA, 5 Refill(s), [facility] [place] Special Instructions: dose change Start Date: 09/12/13 Stop Date: 12/31/13 Status: CompletedLevemir FlexTouch 100 units/mL subcutaneous solution 80 units, Subcutaneous, BID, # 15 mL, 5 Refill(s), Start Date: 12/30/13 10:57: 00 CONTINUOUS CRUSHER OPERATOR, [facility] [facility] [place] Start Date: 12/30/13 Stop Date: 12/31/13 Status: CompletedLevemir FlexTouch 100 units/mL subcutaneous solution 80 units, Subcutaneous, BID, 0 Refill(s), Start Date: 12/30/13 10:56:00 CONTINUOUS CRUSHER OPERATOR Start Date: 12/30/13 Stop Date: 12/30/13 Status: DiscontinuedLevemir FlexTouch 100 units/mL subcutaneous solution 80 units, Subcutaneous, BID, # 60 mL, 3 Refill(s), Start Date: 12/31/13 8:31:03 CONTINUOUS CRUSHER OPERATOR, [facility] [facility] [place] Start Date: 12/31/13 Stop Date: 06/30/14 Status: CompletedLevemir FlexTouch 100 units/mL subcutaneous solution 80 units, Subcutaneous, BID, NEEDS APPOINTMENT FOR FURTHER REFILLS., # 1 boxes, 0 Refill(s), Start Date: 06/30/14 11:11:59 CDT, [facility]: [facility] [place] [place] Special Instructions: NEEDS APPOINTMENT FOR FURTHER REFILLS. Start Date: 06/30/14 Status: OrderedLipitor Oral, HS, 0 Refill(s) Start Date: 07/21/13 Stop Date: 09/11/13 Status: DiscontinuedLipitor 40 mg oral tablet 1 tab(s), Oral, HS, # 30 tab(s), 11 Refill(s), [facility] [place] [place] Start Date: 09/11/13 Stop Date: 02/25/14 Status: DiscontinuedLipitor 80 mg oral tablet 1 tab(s), Oral, Daily, # 90 tab(s), 1 Refill(s), Start Date: 04/27/15 8:50:46 CONTINUOUS CRUSHER OPERATOR, [facility] [facility] [place] Start Date: 04/27/15 Status: OrderedLipitor 80 mg oral tablet 1 tab(s), Oral, Daily, # 30 tab(s), 5 Refill(s), Start Date: 08/18/14 9:33:09 CDT, [facility] [facility] [place] Start Date: 08/18/14 Stop Date: 04/27/15 Status: CompletedLipitor 80 mg oral tablet 1 tab(s), Oral, Daily, # 90 tab(s), 1 Refill(s), Start Date: 02/25/14 11:02:00 CONTINUOUS CRUSHER OPERATOR, [facility] [facility] [place] Start Date: 02/25/14 Stop Date: 08/18/14 Status: Completedlisinopril 2.5 mg oral tablet 1 tab(s), Oral, Daily, # 90 tab(s), 1 Refill(s), Start Date: 02/25/14 11:01:00 CONTINUOUS CRUSHER OPERATOR, [place] [facility] [place] Start Date: 02/25/14 Stop Date: 08/04/14 Status: Completedlisinopril 2.5 mg oral tablet 1 tab(s), Oral, Daily, # 90 tab(s), 1 Refill(s), Start Date: 04/27/15 8:50:29 CONTINUOUS CRUSHER OPERATOR, [place] [facility] [place] Start Date: 04/27/15 Status: Orderedlisinopril 2.5 mg oral tablet 1 tab(s), Oral, Daily, # 30 tab(s), 0 Refill(s), Start Date: 03/30/15 8:50:25 CONTINUOUS CRUSHER OPERATOR, [facility] [facility] [place] Start Date: 03/30/15 Stop Date: 04/27/15 Status: Completedlisinopril 2.5 mg oral tablet 1 tab(s), Oral, Daily, # 30 tab(s), 5 Refill(s), Start Date: 08/18/14 9:33:11 CDT, [facility] [facility] [place] Start Date: 08/18/14 Stop Date: 02/24/15 Status: Completedlisinopril 2.5 mg oral tablet 1 tab(s), Oral, Daily, # 30 tab(s), 0 Refill(s), Start Date: 08/04/14 15:05:18 CDT, [facility] [facility] Start Date: 08/04/14 Stop Date: 08/18/14 Status: Completedlisinopril 2.5 mg oral tablet 1 tab(s), Oral, Daily, # 30 tab(s), 0 Refill(s), Start Date: 02/24/15 13:29:23 CONTINUOUS CRUSHER OPERATOR, [facility] [facility] [place] Start Date: 02/24/15 Stop Date: 03/30/15 Status: Completedlisinopril 20 mg oral tablet 1 tab(s), Oral, Daily, # 14 tab(s), 0 Refill(s), Start Date: 04/16/14 13:47:00 CONTINUOUS CRUSHER OPERATOR Start Date: 04/16/14 Stop Date: 04/24/14 Status: Discontinuedlisinopril 20 mg oral tablet 1 tab(s), Oral, Daily, X 14 days, # 14 tab(s), 0 Refill(s), Start Date: 13:56:00 CONTINUOUS CRUSHER OPERATOR Start Date: 04/16/14 Stop Date: 04/24/14 Status: Discontinuedmeloxicam 15 mg oral tablet 1 tab(s), Oral, Daily, 0 Refill(s) Start Date: 08/09/13 Stop Date: 09/11/13 Status: DiscontinuedmetFORMIN 500 mg oral tablet 1 tab(s), Oral, Daily, 0 Refill(s) Start Date: 10/07/13 Status: Orderedmethylphenidate 10 mg oral tablet 1-2 tab(s), Oral, TID, 0 Refill(s), Start Date: 03/16/15 14:45:00 CONTINUOUS CRUSHER OPERATOR Start Date: 03/16/15 Status: Orderedmultivitamin 1 tab(s), Oral, Daily, 0 Refill(s), Start Date: 08/09/13 8:33:00 CDT Start Date: 08/09/13 Status: OrderedNovoLOG Subcutaneous, TIDAC, 0 Refill(s) Start Date: 07/21/13 Status: OrderedPen [place] Short 31G 8mm See Instructions, up to 5 times daily with insulin pens; diagnosis E11.9, # 200 EA, 5 Refill(s), [facility] [facility] [place] Special Instructions: up to 5 times daily with insulin pens; diagnosis E11.9 Start Date: 07/22/15 Status: OrderedPen [place] Short 31G 8mm See Instructions, up to 5 times daily with insulin pens, 0 Refill(s), Supply Special Instructions: up to 5 times daily with insulin pens Start Date: 07/22/15 Stop Date: 07/22/15 Status: DiscontinuedPercocet 5/325 oral tablet 2 tab(s), Oral, q6hr interval, 0 Refill(s) Start Date: 09/30/13 Stop Date: 09/30/13 Status: DiscontinuedPercocet 5/325 oral tablet 2 tab(s), Oral, q6hr interval, # 240 tab(s), 0 Refill(s) Start Date: 09/30/13 Stop Date: 02/25/14 Status: DiscontinuedPriLOSEC 20 mg oral delayed release capsule 1 cap(s), Oral, Daily, # 30 cap(s), 11 Refill(s), [facility] [place] [place] Start Date: 09/11/13 Status: OrderedPriLOSEC 20 mg oral delayed release capsule 1 cap(s), Oral, Daily, 0 Refill(s) Start Date: 08/09/13 Stop Date: 09/11/13 Status: DiscontinuedQvar 40 mcg/inh inhalation aerosol 2 puff(s), Inhale, BID, # 1 EA, 0 Refill(s), Pharmacy: [facility] [place] Start Date: 07/21/13 Stop Date: 08/20/13 Status: CompletedTest Strips Other (See Comment) blood sugar diagnostic Strips, 0 Refill(s), Supply Special Instructions: blood sugar diagnostic Strips Start Date: 08/09/13 Stop Date: 03/16/15 Status: CompletedToprol-XL 25 mg oral tablet, extended release 1 tab(s), Oral, Daily, # 30 tab(s), 2 Refill(s), Start Date: 04/24/14 16:04:00 CONTINUOUS CRUSHER OPERATOR, Pharmacy: [facility] [place], [place] Start Date: 04/24/14 Stop Date: 07/28/14 Status: CompletedToprol-XL 25 mg oral tablet, extended release 1 tab(s), Oral, Daily, # 30 tab(s), 0 Refill(s), Start Date: 03/30/15 8:50:13 CONTINUOUS CRUSHER OPERATOR, [facility] [facility] [place] Start Date: 03/30/15 Stop Date: 04/27/15 Status: CompletedToprol-XL 25 mg oral tablet, extended release 1 tab(s), Oral, Daily, # 90 tab(s), 1 Refill(s), Start Date: 04/27/15 8:48:35 CONTINUOUS CRUSHER OPERATOR, [facility] [facility] [place] Start Date: 04/27/15 Status: OrderedToprol-XL 25 mg oral tablet, extended release 1 tab(s), Oral, Daily, # 30 tab(s), 5 Refill(s), Start Date: 08/18/14 9:33:12 CDT, [facility] [place] Start Date: 08/18/14 Stop Date: 02/24/15 Status: CompletedToprol-XL 25 mg oral tablet, extended release 1 tab(s), Oral, Daily, # 30 tab(s), 0 Refill(s), Start Date: 07/28/14 10:44:21 CDT, [facility] [facility] [place] [place] Start Date: 07/28/14 Stop Date: 08/18/14 Status: CompletedToprol-XL 25 mg oral tablet, extended release 1 tab(s), Oral, Daily, # 30 tab(s), 0 Refill(s), Start Date: 02/24/15 13:29:31 CONTINUOUS CRUSHER OPERATOR, [facility] [facility] [place] Start Date: 02/24/15 Stop Date: 03/30/15 Status: CompletedTradjenta 5 mg oral tablet 1 tab(s), Oral, Daily, # 30 tab(s), 11 Refill(s), [facility] [place] [place] Start Date: 09/11/13 Stop Date: 02/25/14 [...] tab(s), 2 Refill(s), Start Date: 02/18/14 14:45:00 CONTINUOUS CRUSHER OPERATOR Special Instructions: maximum 6 in 24 hour period Start Date: 02/18/14 Status: OrderedWellbutrin Oral, 0 Refill(s) Start Date: 07/21/13 Stop Date: 09/30/13 Status: DiscontinuedWellbutrin 100 mg oral tablet 1 tab(s), Oral, TID, 0 Refill(s) Start Date: 08/09/13 Status: OrderedZofran ODT 8 mg oral tablet, disintegrating 1 tab(s), Oral, TID, # 10 tab(s), 0 Refill(s) Start Date: 09/30/13 Stop Date: 02/18/14 Status: Completed Results Patient Viewable Results Most recent to oldest [Reference Range]: 1 WBC [4.8-10.8 thou/mm3] 8.6 thou/mm3 (07/28/15 1:22 PM) RBC [4.20-5.40 Mil/mm3] 5.17 Mil/mm3 (07/28/15 1:22 PM) Hgb [12.0-16.0 g/dL] 15.2 g/dL (07/28/15 1:22 PM) Hct [37.0-47.0 %] 45.9 % (07/28/15 1:22 PM) MCV [80.0-94.0 fL] 88.8 fL (07/28/15 1:22 PM) MCH [25.0-38.0 pg/cell] 29.4 pg/cell (07/28/15 1:22 PM) MCHC [31.0-37.0 g/dL] 33.1 g/dL (07/28/15 1:22 PM) RDW [11.6-14.8 %] 13.0 % (07/28/15 1:22 PM) Platelet [130-400 thou/mm3] 292 thou/mm3 (07/28/15 1:22 PM) MPV [0.0-99.8 fL] 10.5 fL (07/28/15 1:22 PM) Neutrophils % Auto [50.0-75.0 %] 67.6 % (07/28/15 1:22 PM) Lymphocytes % Auto [15.0-41.0 %] 23.4 % (07/28/15 1:22 PM) Monocytes % Auto [4.0-10.0 %] 7.5 % (07/28/15 1:22 PM) Eosinophils % Auto [0.0-6.0 %] 1.0 % (07/28/15 1:22 PM) Basophil % Auto [0.0-1.0 %] 0.5 % (07/28/15 1:22 PM) Neutrophils Absolute [1.5-5.9 thou/mm3] 5.8 thou/mm3 (07/28/15 1:22 PM) Lymphocytes Absolute [1.5-4.0 thou/mm3] 2.0 thou/mm3 (07/28/15 1:22 PM) Monocytes Absolute [0.0-0.9 thou/mm3] 0.6 thou/mm3 (07/28/15 1:22 PM) Eosinophil Absolute [0.0-0.7 thou/mm3] 0.1 thou/mm3 (07/28/15 1:22 PM) Basophil Absolute [0.0-0.2 thou/mm3] 0.0 thou/mm3 (07/28/15 1:22 PM) Sodium Lvl [136-145 mmol/L] 136 mmol/L (07/28/15 1:22 PM) Potassium Lvl [3.5-5.1 mmol/L] 4.2 mmol/L (07/28/15 1:22 PM) Chloride Lvl [98-107 mmol/L] 98 mmol/L (07/28/15 1:22 PM) Bicarbonate Lvl [21-32 mmol/L] 34 mmol/L *HI* (07/28/15 1:22 PM) Anion Gap [12-19] 8 *LOW* (07/28/15 1:22 PM) Glucose Lvl [74-106 mg/dL] 214 mg/dL *HI* (07/28/15 1:22 PM) BUN [7-18 mg/dL] 25 mg/dL *HI* (07/28/15 1:22 PM) Creatinine Lvl [0.55-1.02 mg/dL] 0.68 mg/dL (07/28/15 1:22 PM) BUN/Creat Ratio 37 *NA* (07/28/15 1:22 PM) eGFR AA [>=60] >60 (07/28/15 1:22 PM) eGFR MARIAN [>=60] >60 (07/28/15 1:22 PM) Calcium Lvl [8.5-10.1 mg/dL] 9.3 mg/dL (07/28/15 1:22 PM) Total Protein [6.4-8.2 g/dL] 7.4 g/dL (07/28/15 1:22 PM) Albumin Lvl [3.4-5.0 g/dL] 3.7 g/dL (07/28/15 1:22 PM) Globulin 4 g/dL *NA* (07/28/15 1:22 PM) A/G Ratio [1.0-2.0] 1.0 (07/28/15 1:22 PM) Bilirubin Total [0.2-1.0 mg/dL] 0.4 mg/dL (07/28/15 1:22 PM) Alkaline Phosphatase [46-116 unit/L] 103 unit/L (07/28/15 1:22 PM) AST [15-37 unit/L] 16 unit/L (07/28/15 1:22 PM) ALT [14-59 unit/L] 39 unit/L (07/28/15 1:22 PM) UA Color Yellow *NA* (07/28/15 12:46 PM) Urine Clarity [Clear] Slightly Cloudy *ABN* (07/28/15 12:46 PM) Specific [place] [1.001-1.020] 1.025 *HI* (07/28/15 12:46 PM) Urine pH [5.0-7.0] 5.0 (07/28/15 12:46 PM) Ketones [Negative] Negative (07/28/15 12:46 PM) Bilirubin [Negative] Negative (07/28/15 12:46 PM) Urine Protein [Negative] 2+ *ABN* (07/28/15 12:46 PM) Glucose [Negative] 2+ *ABN* (07/28/15 12:46 PM) Urine HGB Trace-lysed *NA* (07/28/15 12:46 PM) Urobilinogen [0.2-1.0] 0.2 (07/28/15 12:46 PM) Nitrite [Negative] Positive *ABN* (07/28/15 12:46 PM) Leuk Esterase [Negative] Negative (07/28/15 12:46 PM) Urine WBC [Negative] 5-15 *ABN* (07/28/15 12:46 PM) Urine RBC [Negative] 0-2 *ABN* (07/28/15 12:46 PM) Squamous Epi [Negative] 0-2 *ABN* (07/28/15 12:46 PM) Bacteria [Negative] 4+ *ABN* (07/28/15 12:46 PM) Mucus [Negative] Trace *ABN* (07/28/15 12:46 PM) Immunizations Vaccine Date Refusal Reason influenza virus [...]
--- OUTSIDE RECORDS SUMMARY | 2016-09-26 02:05 | XMS REPORT | Summary of Care ---
:1965 Author Organization [facility] Address [address] [place] [address] Care Team Providers Name Role Phone Dany Bajwa Primary Care Physician Encounter Date(s): 05/25/16 - 05/25/16 [facility], [address] [place], [place] [id number] Discharge Diagnosis: Other cystitis without hematuria Discharge Disposition: 01 Discharged to Home or Self Care Attending Physician: LALO Christianson Referring Physician: Juan Alberto Fox MD Vital Signs Most recent to oldest [Reference Range]: 1 Temperature Temporal Artery [36.0-38.0 DegC] 36.3 DegC (05/25/16 11:07 AM) Peripheral Pulse Rate [60-100 bpm] 82 bpm (05/25/16 11:07 AM) Blood Pressure [90-130/60-90 mmHg] 160/95mmHg *HI* (05/25/16 11:07 AM) Mean Arterial Pressure, Cuff 117 mmHg (05/25/16 11:07 AM) Most recent to oldest [Reference Range]: 1 Height/Length Measured 162.5 cm (05/25/16 11:07 AM) Weight Dosing 119.80 kg1 (05/25/16 11:09 AM) Weight Measured 119.8 kg (05/25/16 11:07 AM) BSA Measured 2.2 m2 (05/25/16 11:07 AM) Body Mass Index Measured 45.37 kg/m2 (05/25/16 11:07 AM) 1Result Comment: This result was because the dosing weight was either not entered or it is>30 days old. 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, [facility] [place] [place] Start Date: 02/15/14 Stop Date: 02/25/14 Status: DiscontinuedBactrim 400 mg-80 mg oral tablet 1 tab(s), Oral, Daily, PRN other (see comment), postcoital, X 90 days, # 20 tab( s), 3 Refill(s), Start Date: 12/15/15 15:47:00 CDT, Pharmacy: [place], [place] Special Instructions: postcoital Start Date: 12/15/15 Stop Date: 12/09/16 Status: OrderedBactrim DS 800 mg-160 mg oral tablet 1 tab(s), Oral, BID, X 7 days, # 14 tab(s), 0 Refill(s), Start Date: 04/16/14 13 :47:00 PAYROLL SECRETARY Start Date: 04/16/14 Stop Date: 04/23/14 Status: Completedcephalexin 500 mg oral tablet 1 tab(s), Oral, TID, # 21 tab(s), 0 Refill(s), Start Date: 12/10/15 16:22:00 CDT , [facility] Start Date: 12/10/15 Stop Date: 01/18/16 Status: CompletedCipro 500 mg oral tablet 1 tab(s), Oral, Daily, X 7 days, # 7 tab(s), 0 Refill(s), Start Date: 09/27/14 9 :46:00 CDT, [facility] [facility] [place] Start Date: 09/27/14 Stop Date: 10/04/14 Status: CompletedCipro 500 mg oral tablet 1 tab(s), Oral, q12hr, # 10 tab(s), 0 Refill(s), Start Date: 03/18/15 13:05:00 PAYROLL SECRETARY, [facility] [place] Start Date: 03/18/15 Stop Date: 04/09/15 Status: CompletedCipro 500 mg oral tablet 1 tab(s), Oral, q12hr, X 7 days, # 14 tab(s), 0 Refill(s), Start Date: 04/16/14 13:56:00 PAYROLL SECRETARY Start Date: 04/16/14 Stop Date: 04/23/14 Status: CompletedCipro 500 mg oral tablet 1 tab(s), Oral, q12hr, X 7 days, # 14 tab(s), 0 Refill(s), Start Date: 07/28/15 13:09:00 CDT, [facility] [place] Start Date: 07/28/15 Stop Date: 08/14/15 Status: CompletedCipro 500 mg oral tablet 1 tab(s), Oral, q12hr, # 14 tab(s), 0 Refill(s), Start Date: 03/11/16 16:34:00 PAYROLL SECRETARY, [facility] Start Date: 03/11/16 Stop Date: 03/17/16 Status: CompletedCipro 500 mg oral tablet 1 tab(s), Oral, q12hr, # 14 tab(s), 0 Refill(s), Start Date: 08/14/15 14:07:40 CDT, [facility] [place] [place] Start Date: 08/14/15 Stop Date: 09/10/15 Status: CompletedCo Q-10 100 mg oral capsule 1 cap(s), Oral, Daily, 0 Refill(s), Start Date: 08/09/13 8:32:00 CDT Start Date: 08/09/13 Status: Orderedcyclobenzaprine 10 mg oral tablet 1 tab(s), Oral, TID, PRN for spasm, # 90 tab(s), 0 Refill(s), [facility] [place] [place] Start Date: 09/30/13 Stop Date: 10/29/13 Status: Completedcyclobenzaprine 10 mg oral tablet 1 tab(s), Oral, TID, PRN as needed for muscle spasm, # 30 tab(s), 0 Refill(s), Start Date: 08/18/14 9:33:10 CDT, [facility] [place] [place] Start Date: 08/18/14 Status: Orderedcyclobenzaprine 10 mg oral tablet 1 tab(s), Oral, TID, PRN as needed for muscle spasm, # 90 tab(s), 5 Refill(s), Start Date: 10/29/13 11:04:53 CDT, [facility] [place] [place] [place] Start Date: 10/29/13 Stop Date: 08/18/14 Status: CompletedCymbalta 60 mg, Oral, qPM, 0 Refill(s), Start Date: 07/21/13 12:05:00 CDT Start Date: 07/21/13 Status: OrderedFlorastor 250 mg oral capsule 1 cap(s), Oral, BID, # 20 cap(s), 0 Refill(s), Start Date: 03/18/15 13:04:00 PAYROLL SECRETARY , [facility] [place] [place] [place] Start Date: 03/18/15 Stop Date: 04/09/15 Status: Completedibuprofen 800 mg oral tablet 1 tab(s), Oral, TID, # 90 tab(s), 5 Refill(s), Start Date: 10/06/15 14:28:12 CDT , Pharmacy: [place], [place] Start Date: 10/06/15 Status: Orderedibuprofen 800 mg oral tablet 1 tab(s), Oral, TID, # 90 tab(s), 0 Refill(s), [facility] [place] Start Date: 09/30/13 Stop Date: 10/29/13 Status: Completedibuprofen 800 mg oral tablet 1 tab(s), Oral, TID, # 90 tab(s), 5 Refill(s), Start Date: 08/18/14 9:33:12 CDT , Pharmacy: [place], [place] Start Date: 08/18/14 Stop Date: 10/06/15 Status: Discontinuedibuprofen 800 mg oral tablet 1 tab(s), Oral, TID, # 90 tab(s), 5 Refill(s), Start Date: 02/18/14 14:47:00 PAYROLL SECRETARY , Pharmacy: [place], [place] Start Date: 02/18/14 Stop Date: 08/18/14 Status: Completedibuprofen 800 mg oral tablet 1 tab(s), Oral, TID, # 90 tab(s), 5 Refill(s), Pharmacy: [place], [place] Start Date: 10/29/13 Stop Date: 02/25/14 Status: DiscontinuedInsulin Pen Lima 07/12" 31G 1 needle, Subcutaneous, QID, # 100 EA, 5 Refill(s), Pharmacy: [place], [place], Supply Start Date: 10/15/13 Stop Date: 06/06/14 Status: CompletedInsulin Pen Lima 07/12" 31G 1 needle, Subcutaneous, QID, Use 5 times daily and as needed; 250.00, insulin dependent diabetes mellitus., # 200 EA, 5 Refill(s), Pharmacy: [place], [place], Supply Special Instructions: Use 5 times daily and as needed; 250.00, insulin dependent diabetes mellitus. Start Date: 06/06/14 Stop Date: 07/22/15 Status: CompletedInsulin Pen Lima 07/12" 31G 100 Lima, Subcutaneous, Daily, # 1 boxes, 0 Refill(s), Supply Start Date: 08/09/13 Stop Date: 10/15/13 Status: DiscontinuedKeflex 500 mg oral capsule 1 cap(s), Oral, BID, # 14 cap(s), 0 Refill(s), Start Date: 11/23/15 16:34:00 CDT , [facility] [place] [place] [place] Start Date: 11/23/15 Stop Date: 12/10/15 Status: CompletedLevemir Subcutaneous, 0 Refill(s) Start Date: 07/21/13 Stop Date: 08/10/13 Status: DiscontinuedLevemir 100 units/mL subcutaneous solution 60 units, Subcutaneous, BID, # 10 mL, 3 Refill(s), [facility] [place] [place] Start Date: 08/12/13 Stop Date: 09/11/13 Status: DiscontinuedLevemir 100 units/mL subcutaneous solution 70 units, Subcutaneous, BID, # 100 units, 3 Refill(s) Start Date: 08/10/13 Stop Date: 08/12/13 Status: CompletedLevemir 100 units/mL subcutaneous solution 80 units, Subcutaneous, BID, dose change, # 1 QS, 5 Refill(s), [facility] [place] [place] Special Instructions: dose change Start Date: 09/11/13 Stop Date: 09/12/13 Status: DiscontinuedLevemir 100 units/mL subcutaneous solution 80 units, Subcutaneous, BID, dose change, # 5 EA, 5 Refill(s), [facility] [place] [place] Special Instructions: dose change Start Date: 09/12/13 Stop Date: 12/31/13 Status: CompletedLevemir FlexTouch 100 units/mL subcutaneous solution 80 units, Subcutaneous, BID, # 15 mL, 5 Refill(s), Start Date: 12/30/13 10:57: 00 PAYROLL SECRETARY, [facility] [place] [place] [place] Start Date: 12/30/13 Stop Date: 12/31/13 Status: CompletedLevemir FlexTouch 100 units/mL subcutaneous solution 80 units, Subcutaneous, BID, 0 Refill(s), Start Date: 12/30/13 10:56:00 PAYROLL SECRETARY Start Date: 12/30/13 Stop Date: 12/30/13 Status: DiscontinuedLevemir FlexTouch 100 units/mL subcutaneous solution 80 units, Subcutaneous, BID, # 60 mL, 3 Refill(s), Start Date: 12/31/13 8:31:03 PAYROLL SECRETARY, [facility] [place] Start Date: 12/31/13 Stop Date: 06/30/14 Status: CompletedLevemir FlexTouch 100 units/mL subcutaneous solution 80 units, Subcutaneous, BID, NEEDS APPOINTMENT FOR FURTHER REFILLS., # 1 boxes, 0 Refill(s), Start Date: 06/30/14 11:11:59 CDT, [facility] [place] [place] Special Instructions: NEEDS APPOINTMENT FOR FURTHER REFILLS. Start Date: 06/30/14 Stop Date: 01/18/16 Status: DiscontinuedLipitor Oral, HS, 0 Refill(s) Start Date: 07/21/13 Stop Date: 09/11/13 Status: DiscontinuedLipitor 40 mg oral tablet 1 tab(s), Oral, HS, # 30 tab(s), 11 Refill(s), [facility] [place] [place] Start Date: 09/11/13 Stop Date: 02/25/14 Status: DiscontinuedLipitor 80 mg oral tablet 1 tab(s), Oral, Daily, # 90 tab(s), 1 Refill(s), Start Date: 10/06/15 14:27:53 CDT, [facility] [facility] [place] Start Date: 10/06/15 Stop Date: 04/19/16 Status: CompletedLipitor 80 mg oral tablet 1 tab(s), Oral, Daily, # 90 tab(s), 1 Refill(s), Start Date: 04/27/15 8:50:46 PAYROLL SECRETARY, [facility] [facility] [place] Start Date: 04/27/15 Stop Date: 10/06/15 Status: DiscontinuedLipitor 80 mg oral tablet 1 tab(s), Oral, Daily, # 30 tab(s), 5 Refill(s), Start Date: 08/18/14 9:33:09 CDT, [facility] [facility] Start Date: 08/18/14 Stop Date: 04/27/15 Status: CompletedLipitor 80 mg oral tablet 1 tab(s), Oral, Daily, # 90 tab(s), 1 Refill(s), Start Date: 04/19/16 16:38:20 PAYROLL SECRETARY, [facility] [place] Start Date: 04/19/16 Stop Date: 05/20/16 Status: DiscontinuedLipitor 80 mg oral tablet 1 tab(s), Oral, Daily, # 90 tab(s), 1 Refill(s), Start Date: 02/25/14 11:02:00 PAYROLL SECRETARY, [facility] [facility] [place] Start Date: 02/25/14 Stop Date: 08/18/14 Status: CompletedLipitor 80 mg oral tablet 0.5, Oral, Daily, # 45 tab(s), 3 Refill(s), Start Date: 05/20/16 16:40:23 CDT, other reason (Rx) Start Date: 05/20/16 Stop Date: 05/15/17 Status: Orderedlisinopril 2.5 mg oral tablet 1 tab(s), Oral, Daily, # 90 tab(s), 1 Refill(s), Start Date: 10/06/15 14:28:19 CDT, [facility] [facility] [place] Start Date: 10/06/15 Stop Date: 04/19/16 Status: Completedlisinopril 2.5 mg oral tablet 1 tab(s), Oral, Daily, # 90 tab(s), 1 Refill(s), Start Date: 02/25/14 11:01:00 PAYROLL SECRETARY, [facility] [place] Start Date: 02/25/14 Stop Date: 08/04/14 Status: Completedlisinopril 2.5 mg oral tablet 1 tab(s), Oral, Daily, # 90 tab(s), 1 Refill(s), Start Date: 04/27/15 8:50:29 PAYROLL SECRETARY, [facility] Start Date: 04/27/15 Stop Date: 10/06/15 Status: Discontinuedlisinopril 2.5 mg oral tablet 1 tab(s), Oral, Daily, # 30 tab(s), 0 Refill(s), Start Date: 03/30/15 8:50:25 PAYROLL SECRETARY, [facility] [facility] [place] [place] Start Date: 03/30/15 Stop Date: 04/27/15 Status: Completedlisinopril 2.5 mg oral tablet 1 tab(s), Oral, Daily, # 30 tab(s), 5 Refill(s), Start Date: 08/18/14 9:33:11 CDT, [facility] [place] [place] Start Date: 08/18/14 Stop Date: 02/24/15 Status: Completedlisinopril 2.5 mg oral tablet 1 tab(s), Oral, Daily, # 30 tab(s), 0 Refill(s), Start Date: 08/04/14 15:05:18 CDT, [facility] [facility] [place] [place] Start Date: 08/04/14 Stop Date: 08/18/14 Status: Completedlisinopril 2.5 mg oral tablet 1 tab(s), Oral, Daily, # 90 tab(s), 0 Refill(s), Start Date: 04/19/16 8:41:55 PAYROLL SECRETARY, [facility] [facility] [place] [place] Start Date: 04/19/16 Status: Orderedlisinopril 2.5 mg oral tablet 1 tab(s), Oral, Daily, # 30 tab(s), 0 Refill(s), Start Date: 02/24/15 13:29:23 PAYROLL SECRETARY, [facility] [facility] [place] [place] Start Date: 02/24/15 Stop Date: 03/30/15 Status: Completedlisinopril 20 mg oral tablet 1 tab(s), Oral, Daily, # 14 tab(s), 0 Refill(s), Start Date: 04/16/14 13:47:00 PAYROLL SECRETARY Start Date: 04/16/14 Stop Date: 04/24/14 Status: Discontinuedlisinopril 20 mg oral tablet 1 tab(s), Oral, Daily, X 14 days, # 14 tab(s), 0 Refill(s), Start Date: 13:56:00 PAYROLL SECRETARY Start Date: 04/16/14 Stop Date: 04/24/14 Status: DiscontinuedLORazepam 1 mg oral tablet 1 tab(s), Oral, HS, 0 Refill(s), Start Date: 03/17/16 15:20:00 PAYROLL SECRETARY Start Date: 03/17/16 Status: Orderedmeloxicam 15 mg oral tablet 1 tab(s), Oral, Daily, 0 Refill(s) Start Date: 08/09/13 Stop Date: 09/11/13 Status: DiscontinuedmetFORMIN 500 mg oral tablet 1 tab(s), Oral, Daily, 0 Refill(s) Start Date: 10/07/13 Status: Orderedmethylphenidate 10 mg oral tablet 1-2 tab(s), Oral, TID, 0 Refill(s), Start Date: 03/16/15 14:45:00 PAYROLL SECRETARY Start Date: 03/16/15 Stop Date: 05/20/16 Status: Completedmultivitamin 1 tab(s), Oral, Daily, 0 Refill(s), Start Date: 08/09/13 8:33:00 CDT Start Date: 08/09/13 Status: OrderedNovoLOG Subcutaneous, TIDAC, 0 Refill(s) Start Date: 07/21/13 Status: OrderedPen Lima Short 31G 8mm See Instructions, up to 5 times daily with insulin pens; diagnosis E11.9, # 200 EA, 5 Refill(s), [facility] [place] Special Instructions: up to 5 times daily with insulin pens; diagnosis E11.9 Start Date: 07/22/15 Stop Date: 12/14/15 Status: CompletedPen Lima Short 31G 8mm See Instructions, up to 5 times daily with insulin pens, 0 Refill(s), Supply Special Instructions: up to 5 times daily with insulin pens Start Date: 07/22/15 Stop Date: 07/22/15 Status: DiscontinuedPen Lima Short 31G 8mm See Instructions, up to 5 times daily with insulin pens; diagnosis E11.9, # 200 EA, 5 Refill(s), Pharmacy: [place], [place], Supply Special Instructions: up to 5 [...] Start Date: 10/06/15 14:29:00 CDT , [facility] [facility] [place] [place] Start Date: 10/06/15 Stop Date: 11/23/15 Status: DiscontinuedPriLOSEC 20 mg oral delayed release capsule 1 cap(s), Oral, Daily, # 30 cap(s), 11 Refill(s), [facility] [facility] Start Date: 09/11/13 Status: OrderedPriLOSEC 20 mg oral delayed release capsule 1 cap(s), Oral, Daily, 0 Refill(s) Start Date: 08/09/13 Stop Date: 09/11/13 Status: DiscontinuedPyridium 100 mg oral tablet 1 tab(s), Oral, TID, PRN as needed for urinary discomfort, # 90 tab(s), 0 Refill (s), Start Date: 05/25/16 11:16:00 CDT, [facility] [facility] [place] Start Date: 05/25/16 Status: OrderedQvar 40 mcg/inh inhalation aerosol 2 puff(s), Inhale, BID, # 1 EA, 0 Refill(s), [facility] [place] [place] Start Date: 07/21/13 Stop Date: 08/20/13 Status: CompletedTamiflu 75 mg oral capsule 1 cap(s), Oral, BID, # 14 cap(s), 0 Refill(s), Start Date: 04/19/16 14:36:00 PAYROLL SECRETARY , [facility] [place] [place] Start Date: 04/19/16 Stop Date: 05/20/16 Status: CompletedTest Strips Other (See Comment) blood sugar diagnostic Strips, 0 Refill(s), Supply Special Instructions: blood sugar diagnostic Strips Start Date: 08/09/13 Stop Date: 03/16/15 Status: CompletedToprol-XL 25 mg oral tablet, extended release 1 tab(s), Oral, Daily, # 30 tab(s), 2 Refill(s), Start Date: 04/24/14 16:04:00 PAYROLL SECRETARY, [facility] [place] [place] Start Date: 04/24/14 Stop Date: 07/28/14 Status: CompletedToprol-XL 25 mg oral tablet, extended release 1 tab(s), Oral, Daily, # 90 tab(s), 1 Refill(s), Start Date: 05/20/16 15:51:55 CDT, [facility] [place] Start Date: 05/20/16 Status: OrderedToprol-XL 25 mg oral tablet, extended release 1 tab(s), Oral, Daily, # 30 tab(s), 0 Refill(s), Start Date: 03/30/15 8:50:13 PAYROLL SECRETARY, [facility] [place] [place] Start Date: 03/30/15 Stop Date: 04/27/15 Status: CompletedToprol-XL 25 mg oral tablet, extended release 1 tab(s), Oral, Daily, # 90 tab(s), 1 Refill(s), Start Date: 04/27/15 8:48:35 PAYROLL SECRETARY, [facility] [place] Start Date: 04/27/15 Stop Date: 11/09/15 Status: CompletedToprol-XL 25 mg oral tablet, extended release 1 tab(s), Oral, Daily, # 30 tab(s), 5 Refill(s), Start Date: 08/18/14 9:33:12 CDT, [facility] [place] [place] [place] Start Date: 08/18/14 Stop Date: 02/24/15 Status: CompletedToprol-XL 25 mg oral tablet, extended release 1 tab(s), Oral, Daily, # 30 tab(s), 0 Refill(s), Start Date: 07/28/14 10:44:21 CDT, [facility] [place] [place] [place] Start Date: 07/28/14 Stop Date: 08/18/14 Status: CompletedToprol-XL 25 mg oral tablet, extended release 1 tab(s), Oral, Daily, # 90 tab(s), 1 Refill(s), Start Date: 11/09/15 9:20:27 CDT, [facility] [place] [place] Start Date: 11/09/15 Stop Date: 05/20/16 Status: CompletedToprol-XL 25 mg oral tablet, extended release 1 tab(s), Oral, Daily, # 30 tab(s), 0 Refill(s), Start Date: 02/24/15 13:29:31 PAYROLL SECRETARY, Pharmacy: [place], [place] Start Date: 02/24/15 Stop Date: 03/30/15 Status: CompletedToujeo SoloStar 300 units/mL subcutaneous solution 40 units, Subcutaneous, BID, 0 Refill(s), Start Date: 03/11/16 16:04:00 PAYROLL SECRETARY Start Date: 03/11/16 Stop Date: 05/20/16 Status: DiscontinuedToujeo SoloStar 300 units/mL subcutaneous solution See Instructions, 45 units Subcutaneous BID, # 5 mL, 11 Refill(s), Start Date: 05/20/16 16:41:00 CDT, other reason (Rx) Special Instructions: 45 units Subcutaneous BID Start Date: 05/20/16 Status: OrderedTradjenta 5 mg oral tablet 1 tab(s), Oral, Daily, # 30 tab(s), 11 Refill(s), [facility] [place] [place] Start Date: 09/11/13 Stop Date: 02/25/14 [...] tab(s), 2 Refill(s), Start Date: 02/18/14 14:45:00 PAYROLL SECRETARY Special Instructions: maximum 6 in 24 hour period Start Date: 02/18/14 Stop Date: 10/06/15 Status: Discontinuedtriamcinolone 0.1% topical cream 1 norbert, Topical, BID, X 14 days, # 30 gm, 0 Refill(s), Start Date: 09/10/15 13:47 :00 CDT, [facility] [facility] [place] Start Date: 09/10/15 Stop Date: 09/24/15 [...] Most recent to oldest [Reference Range]: 1 Urine Appearance Urine Dipstick Clear (05/25/16 11:14 AM) Urine Color Urine Dipstick Dark yellow (05/25/16 11:14 AM) Specific [place] Urine Dipstick 1.030 (05/25/16 11:14 AM) Bilirubin Urine Dipstick Negative (05/25/16 11:14 AM) pH Urine Dipstick 5 (05/25/16 11:14 AM) Urobilinogen Urine Dipstick 0.2 mg/dl (05/25/16 11:14 AM) Blood Urine Dipstick Negative (05/25/16 11:14 AM) Glucose Urine Dipstick 1/10 (100 mg/dl) (05/25/16 11:14 AM) Ketones Urine Dipstick Negative (05/25/16 11:14 AM) Protein Urine Dipstick 3+ (300 mg/dl) (05/25/16 11:14 AM) Nitrite Urine Dipstick Positive (05/25/16 11:14 AM) Leukocytes Urine Dipstick Negative (05/25/16 11:14 AM) Immunizations Vaccine Date Refusal Reason influenza virus vaccine, inactivated 12/16/14 tetanus/diphtheria/pertussis, acel(Tdap) 10/06/09 Procedures Procedure Date Related Diagnosis Body Site Balloon kyphoplasty of fracture of spine 10/24/13 Rt Shoulder scope with RCR 08/21/12 Arthroscopy left shoulder 2010 Hernia repair 2008 laparoscopic ventral hernia repair 2008 Hysterectomy 2006 removal of Ovarian cyst 1998 Cholecystectomy 1992 Pregnancies x 3 RELL BSO - Total abdominal hysterectomy and bilateral salpingo-oophorectomy Social History No data available for this section Assessment and Plan No data available for this section
--- OUTSIDE RECORDS SUMMARY | 2016-09-26 02:05 | XMS REPORT | Summary of Care ---
:1965 Author Organization [facility] Address [address] [place] [address] Care Team Providers Name Role Phone Dany Bajwa Primary Care Physician Encounter Date(s): 06/16/16 - 06/16/16 [facility], [address] [place] [id number] Discharge Diagnosis: Recurrent UTI (urinary tract infection) Discharge Disposition: 01 Discharged to Home or Self Care Attending Physician: Juan Alberto Fox MD Referring Physician: Juan Alberto Fox MD Vital Signs Most recent to oldest [Reference Range]: 1 Peripheral Pulse Rate [60-100 bpm] 79 bpm (06/16/16 8:32 AM) Blood Pressure [90-130/60-90 mmHg] 147/80mmHg *HI* (06/16/16 8:32 AM) Mean Arterial Pressure, Cuff 102 mmHg (06/16/16 8:32 AM) Most recent to oldest [Reference Range]: 1 Height/Length Measured 162.5 cm (06/16/16 8:32 AM) Weight Dosing 120.00 kg1 (06/16/16 8:33 AM) Weight Measured 120 kg (06/16/16 8:32 AM) BSA Measured 2.2 m2 (06/16/16 8:32 AM) Body Mass Index Measured 45.44 kg/m2 (06/16/16 8:32 AM) 1Result Comment: This result was because the dosing weight was either not entered or it is>30 days old. This result is based off: Weight Measured June 16, 2016 08:32:00 CDT by More Gupta, [employer] Problem List Condition Effective Dates Status Health [...] # 30 cap(s), 0 Refill(s), [place] [facility] [place] Start Date: 07/21/13 Stop Date: 07/31/13 Status: Completedaspirin 81 mg oral tablet 1 tab(s), Oral, Daily, 0 Refill(s) Start Date: 10/07/13 Status: OrderedAugmentin 875 mg-125 mg oral tablet 1 tab(s), Oral, q12hr, # 20 tab(s), 0 Refill(s), Start Date: 02/15/14 9:22:00 ASSOCIATE BRAND MANAGER, Pharmacy: [facility] [place] Start Date: 02/15/14 Stop Date: 02/25/14 Status: DiscontinuedBactrim 400 mg-80 mg oral tablet 1 tab(s), Oral, Daily, PRN other (see comment), postcoital, X 90 days, # 20 tab( s), 3 Refill(s), Start Date: 12/15/15 15:47:00 CDT, [facility] [place] [place] Special Instructions: postcoital Start Date: 12/15/15 Stop Date: 06/16/16 Status: DiscontinuedBactrim DS 800 mg-160 mg oral tablet 1 tab(s), Oral, BID, X 7 days, # 14 tab(s), 0 Refill(s), Start Date: 04/16/14 13 :47:00 ASSOCIATE BRAND MANAGER Start Date: 04/16/14 Stop Date: 04/23/14 Status: Completedcephalexin 500 mg oral tablet 1 tab(s), Oral, TID, # 21 tab(s), 0 Refill(s), Start Date: 12/10/15 16:22:00 CDT , [facility] [facility] [place] Start Date: 12/10/15 Stop Date: 01/18/16 Status: CompletedCipro 500 mg oral tablet 1 tab(s), Oral, Daily, X 7 days, # 7 tab(s), 0 Refill(s), Start Date: 09/27/14 9 :46:00 CDT, [facility] [place] [place] Start Date: 09/27/14 Stop Date: 10/04/14 Status: CompletedCipro 500 mg oral tablet 1 tab(s), Oral, q12hr, # 10 tab(s), 0 Refill(s), Start Date: 03/18/15 13:05:00 ASSOCIATE BRAND MANAGER, [facility] [place] [place] Start Date: 03/18/15 Stop Date: 04/09/15 Status: CompletedCipro 500 mg oral tablet 1 tab(s), Oral, q12hr, X 7 days, # 14 tab(s), 0 Refill(s), Start Date: 04/16/14 13:56:00 ASSOCIATE BRAND MANAGER Start Date: 04/16/14 Stop Date: 04/23/14 Status: CompletedCipro 500 mg oral tablet 1 tab(s), Oral, q12hr, # 14 tab(s), 0 Refill(s), Start Date: 05/28/16 10:19:00 CDT, [facility] [place] [place] Start Date: 05/28/16 Stop Date: 06/16/16 Status: DiscontinuedCipro 500 mg oral tablet 1 tab(s), Oral, q12hr, X 7 days, # 14 tab(s), 0 Refill(s), Start Date: 07/28/15 13:09:00 CDT, [facility] [place] [place] Start Date: 07/28/15 Stop Date: 08/14/15 Status: CompletedCipro 500 mg oral tablet 1 tab(s), Oral, q12hr, # 14 tab(s), 0 Refill(s), Start Date: 03/11/16 16:34:00 ASSOCIATE BRAND MANAGER, [place] [facility] [place] Start Date: 03/11/16 Stop Date: 03/17/16 Status: CompletedCipro 500 mg oral tablet 1 tab(s), Oral, q12hr, # 14 tab(s), 0 Refill(s), Start Date: 08/14/15 14:07:40 CDT, [facility] [place] [place] Start Date: 08/14/15 Stop Date: 09/10/15 Status: CompletedCo Q-10 100 mg oral capsule 1 cap(s), Oral, Daily, 0 Refill(s), Start Date: 08/09/13 8:32:00 CDT Start Date: 08/09/13 Status: Orderedcyclobenzaprine 10 mg oral tablet 1 tab(s), Oral, TID, PRN for spasm, # 90 tab(s), 0 Refill(s), [place] [facility] [place] Start Date: 09/30/13 Stop Date: 10/29/13 Status: Completedcyclobenzaprine 10 mg oral tablet 1 tab(s), Oral, TID, PRN as needed for muscle spasm, # 30 tab(s), 0 Refill(s), Start Date: 08/18/14 9:33:10 CDT, [facility] [place] [place] Start Date: 08/18/14 Status: Orderedcyclobenzaprine 10 mg oral tablet 1 tab(s), Oral, TID, PRN as needed for muscle spasm, # 90 tab(s), 5 Refill(s), Start Date: 10/29/13 11:04:53 CDT, [facility] [place] [place] Start Date: 10/29/13 Stop Date: 08/18/14 Status: CompletedCymbalta 60 mg, Oral, qPM, 0 Refill(s), Start Date: 07/21/13 12:05:00 CDT Start Date: 07/21/13 Status: OrderedFlorastor 250 mg oral capsule 1 cap(s), Oral, BID, # 20 cap(s), 0 Refill(s), Start Date: 03/18/15 13:04:00 ASSOCIATE BRAND MANAGER , [facility] [facility] [place] Start Date: 03/18/15 Stop Date: 04/09/15 Status: Completedibuprofen 800 mg oral tablet 1 tab(s), Oral, TID, # 90 tab(s), 5 Refill(s), Start Date: 10/06/15 14:28:12 CDT , [facility] [place] [place] Start Date: 10/06/15 Status: Orderedibuprofen 800 mg oral tablet 1 tab(s), Oral, TID, # 90 tab(s), 0 Refill(s), [facility] [place] [place] Start Date: 09/30/13 Stop Date: 10/29/13 Status: Completedibuprofen 800 mg oral tablet 1 tab(s), Oral, TID, # 90 tab(s), 5 Refill(s), Start Date: 08/18/14 9:33:12 CDT , [facility] [place] [place] Start Date: 08/18/14 Stop Date: 10/06/15 Status: Discontinuedibuprofen 800 mg oral tablet 1 tab(s), Oral, TID, # 90 tab(s), 5 Refill(s), Start Date: 02/18/14 14:47:00 ASSOCIATE BRAND MANAGER , [facility] [place] [place] Start Date: 02/18/14 Stop Date: 08/18/14 Status: Completedibuprofen 800 mg oral tablet 1 tab(s), Oral, TID, # 90 tab(s), 5 Refill(s), [facility] [place] [place] Start Date: 10/29/13 Stop Date: 02/25/14 Status: DiscontinuedInsulin Pen Ringgold 516" 31G 1 needle, Subcutaneous, QID, # 100 EA, 5 Refill(s), Pharmacy: [facility] [place], [place], Supply Start Date: 10/15/13 Stop Date: 06/06/14 Status: CompletedInsulin Pen Ringgold 516" 31G 1 needle, Subcutaneous, QID, Use 5 times daily and as needed; 250.00, insulin dependent diabetes mellitus., # 200 EA, 5 Refill(s), Pharmacy: [place], [place], Supply Special Instructions: Use 5 times daily and as needed; 250.00, insulin dependent diabetes mellitus. Start Date: 06/06/14 Stop Date: 07/22/15 Status: CompletedInsulin Pen Ringgold 07/12" 31G 100 Ring[place], Subcutaneous, Daily, # 1 boxes, 0 Refill(s), Supply Start Date: 08/09/13 Stop Date: 10/15/13 Status: DiscontinuedKeflex 250 mg oral capsule 1 cap(s), Oral, Daily, PRN other (see comment), post-coital prophylaxis, # 20 cap(s), 6 Refill(s), Start Date: 06/16/16 8:43:00 CDT, Pharmacy: [place], [place] Special Instructions: post-coital prophylaxis Start Date: 06/16/16 Stop Date: 11/03/16 Status: OrderedKeflex 500 mg oral capsule 1 cap(s), Oral, BID, # 14 cap(s), 0 Refill(s), Start Date: 11/23/15 16:34:00 CDT , Pharmacy: [place], [place] Start Date: 11/23/15 Stop Date: 12/10/15 Status: CompletedLevemir Subcutaneous, 0 Refill(s) Start Date: 07/21/13 Stop Date: 08/10/13 Status: DiscontinuedLevemir 100 units/mL subcutaneous solution 60 units, Subcutaneous, BID, # 10 mL, 3 Refill(s), [facility] [place] [place] Start Date: 08/12/13 Stop Date: 09/11/13 Status: DiscontinuedLevemir 100 units/mL subcutaneous solution 70 units, Subcutaneous, BID, # 100 units, 3 Refill(s) Start Date: 08/10/13 Stop Date: 08/12/13 Status: CompletedLevemir 100 units/mL subcutaneous solution 80 units, Subcutaneous, BID, dose change, # 1 QS, 5 Refill(s), [facility]acy: [facility] [place], [place] Special Instructions: dose change Start Date: 09/11/13 Stop Date: 09/12/13 Status: DiscontinuedLevemir 100 units/mL subcutaneous solution 80 units, Subcutaneous, BID, dose change, # 5 EA, 5 Refill(s), [facility] [facility] [place] Special Instructions: dose change Start Date: 09/12/13 Stop Date: 12/31/13 Status: CompletedLevemir FlexTouch 100 units/mL subcutaneous solution 80 units, Subcutaneous, BID, # 15 mL, 5 Refill(s), Start Date: 12/30/13 10:57: 00 ASSOCIATE BRAND MANAGER, [facility] [place] [place] Start Date: 12/30/13 Stop Date: 12/31/13 Status: CompletedLevemir FlexTouch 100 units/mL subcutaneous solution 80 units, Subcutaneous, BID, 0 Refill(s), Start Date: 12/30/13 10:56:00 ASSOCIATE BRAND MANAGER Start Date: 12/30/13 Stop Date: 12/30/13 Status: DiscontinuedLevemir FlexTouch 100 units/mL subcutaneous solution 80 units, Subcutaneous, BID, # 60 mL, 3 Refill(s), Start Date: 12/31/13 8:31:03 ASSOCIATE BRAND MANAGER, [facility] [place] [place] Start Date: 12/31/13 Stop Date: 06/30/14 Status: CompletedLevemir FlexTouch 100 units/mL subcutaneous solution 80 units, Subcutaneous, BID, NEEDS APPOINTMENT FOR FURTHER REFILLS., # 1 boxes, 0 Refill(s), Start Date: 06/30/14 11:11:59 CDT, [facility]: [facility] [place] Special Instructions: NEEDS APPOINTMENT FOR FURTHER REFILLS. Start Date: 06/30/14 Stop Date: 01/18/16 Status: DiscontinuedLipitor Oral, HS, 0 Refill(s) Start Date: 07/21/13 Stop Date: 09/11/13 Status: DiscontinuedLipitor 40 mg oral tablet 1 tab(s), Oral, HS, # 30 tab(s), 11 Refill(s), [facility]acy: [facility] [place], [place] Start Date: 09/11/13 Stop Date: 02/25/14 Status: DiscontinuedLipitor 80 mg oral tablet 1 tab(s), Oral, Daily, # 90 tab(s), 1 Refill(s), Start Date: 10/06/15 14:27:53 CDT, [place] [facility] [place] Start Date: 10/06/15 Stop Date: 04/19/16 Status: CompletedLipitor 80 mg oral tablet 1 tab(s), Oral, Daily, # 90 tab(s), 1 Refill(s), Start Date: 04/27/15 8:50:46 ASSOCIATE BRAND MANAGER, [facility] [facility] [place] Start Date: 04/27/15 Stop Date: 10/06/15 Status: DiscontinuedLipitor 80 mg oral tablet 1 tab(s), Oral, Daily, # 30 tab(s), 5 Refill(s), Start Date: 08/18/14 9:33:09 CDT, [place] [facility] [place] Start Date: 08/18/14 Stop Date: 04/27/15 Status: CompletedLipitor 80 mg oral tablet 1 tab(s), Oral, Daily, # 90 tab(s), 1 Refill(s), Start Date: 04/19/16 16:38:20 ASSOCIATE BRAND MANAGER, [place] [facility] [place] Start Date: 04/19/16 Stop Date: 05/20/16 Status: DiscontinuedLipitor 80 mg oral tablet 1 tab(s), Oral, Daily, # 90 tab(s), 1 Refill(s), Start Date: 02/25/14 11:02:00 ASSOCIATE BRAND MANAGER, [place] [facility] [place] Start Date: 02/25/14 Stop Date: 08/18/14 Status: CompletedLipitor 80 mg oral tablet 0.5, Oral, Daily, # 45 tab(s), 3 Refill(s), Start Date: 05/20/16 16:40:23 CDT, other reason (Rx) Start Date: 05/20/16 Stop Date: 05/15/17 Status: Orderedlisinopril 2.5 mg oral tablet 1 tab(s), Oral, Daily, # 90 tab(s), 1 Refill(s), Start Date: 10/06/15 14:28:19 CDT, [facility] [place] [place] Start Date: 10/06/15 Stop Date: 04/19/16 Status: Completedlisinopril 2.5 mg oral tablet 1 tab(s), Oral, Daily, # 90 tab(s), 1 Refill(s), Start Date: 02/25/14 11:01:00 ASSOCIATE BRAND MANAGER, [place] [facility] [place] Start Date: 02/25/14 Stop Date: 08/04/14 Status: Completedlisinopril 2.5 mg oral tablet 1 tab(s), Oral, Daily, # 90 tab(s), 1 Refill(s), Start Date: 04/27/15 8:50:29 ASSOCIATE BRAND MANAGER, [facility] [facility] [place] Start Date: 04/27/15 Stop Date: 10/06/15 Status: Discontinuedlisinopril 2.5 mg oral tablet 1 tab(s), Oral, Daily, # 30 tab(s), 0 Refill(s), Start Date: 03/30/15 8:50:25 ASSOCIATE BRAND MANAGER, [facility] [facility] [place] Start Date: 03/30/15 Stop Date: 04/27/15 Status: Completedlisinopril 2.5 mg oral tablet 1 tab(s), Oral, Daily, # 30 tab(s), 5 Refill(s), Start Date: 08/18/14 9:33:11 CDT, [facility] [facility] [place] Start Date: 08/18/14 Stop Date: 02/24/15 Status: Completedlisinopril 2.5 mg oral tablet 1 tab(s), Oral, Daily, # 30 tab(s), 0 Refill(s), Start Date: 08/04/14 15:05:18 CDT, [facility] [facility] [place] Start Date: 08/04/14 Stop Date: 08/18/14 Status: Completedlisinopril 2.5 mg oral tablet 1 tab(s), Oral, Daily, # 90 tab(s), 0 Refill(s), Start Date: 04/19/16 8:41:55 ASSOCIATE BRAND MANAGER, [place] [facility] [place] Start Date: 04/19/16 Status: Orderedlisinopril 2.5 mg oral tablet 1 tab(s), Oral, Daily, # 30 tab(s), 0 Refill(s), Start Date: 02/24/15 13:29:23 ASSOCIATE BRAND MANAGER, [facility] [place] [place] Start Date: 02/24/15 Stop Date: 03/30/15 Status: Completedlisinopril 20 mg oral tablet 1 tab(s), Oral, Daily, # 14 tab(s), 0 Refill(s), Start Date: 04/16/14 13:47:00 ASSOCIATE BRAND MANAGER Start Date: 04/16/14 Stop Date: 04/24/14 Status: Discontinuedlisinopril 20 mg oral tablet 1 tab(s), Oral, Daily, X 14 days, # 14 tab(s), 0 Refill(s), Start Date: 13:56:00 ASSOCIATE BRAND MANAGER Start Date: 04/16/14 Stop Date: 04/24/14 Status: DiscontinuedLORazepam 1 mg oral tablet 1 tab(s), Oral, HS, 0 Refill(s), Start Date: 03/17/16 15:20:00 ASSOCIATE BRAND MANAGER Start Date: 03/17/16 Status: Orderedmeloxicam 15 mg oral tablet 1 tab(s), Oral, Daily, 0 Refill(s) Start Date: 08/09/13 Stop Date: 09/11/13 Status: DiscontinuedmetFORMIN 500 mg oral tablet 1 tab(s), Oral, Daily, 0 Refill(s) Start Date: 10/07/13 Status: Orderedmethylphenidate 10 mg oral tablet 1-2 tab(s), Oral, TID, 0 Refill(s), Start Date: 03/16/15 14:45:00 ASSOCIATE BRAND MANAGER Start Date: 03/16/15 Stop Date: 05/20/16 Status: Completedmultivitamin 1 tab(s), Oral, Daily, 0 Refill(s), Start Date: 08/09/13 8:33:00 CDT Start Date: 08/09/13 Status: OrderedNovoLOG Subcutaneous, TIDAC, 0 Refill(s) Start Date: 07/21/13 Status: OrderedPen Ringgold Short 31G 8mm See Instructions, up to 5 times daily with insulin pens; diagnosis E11.9, # 200 EA, 5 Refill(s), [facility] [facility] [place] Special Instructions: up to 5 times daily with insulin pens; diagnosis E11.9 Start Date: 07/22/15 Stop Date: 12/14/15 Status: CompletedPen Ringgold Short 31G 8mm See Instructions, up to 5 times daily with insulin pens, 0 Refill(s), Supply Special Instructions: up to 5 times daily with insulin pens Start Date: 07/22/15 Stop Date: 07/22/15 Status: DiscontinuedPen Ringgold Short 31G 8mm See Instructions, up to 5 times daily with insulin pens; diagnosis E11.9, # 200 EA, 5 Refill(s), [facility] [place] [place] Special Instructions: up to 5 [...] Start Date: 10/06/15 14:29:00 CDT , [facility] [place] Start Date: 10/06/15 Stop Date: 11/23/15 Status: DiscontinuedPriLOSEC 20 mg oral delayed release capsule 1 cap(s), Oral, Daily, # 30 cap(s), 11 Refill(s), [facility] [place] [place] Start Date: 09/11/13 Status: OrderedPriLOSEC 20 mg oral delayed release capsule 1 cap(s), Oral, Daily, 0 Refill(s) Start Date: 08/09/13 Stop Date: 09/11/13 Status: DiscontinuedPyridium 100 mg oral tablet 1 tab(s), Oral, TID, PRN as needed for urinary discomfort, # 90 tab(s), 0 Refill (s), Start Date: 05/25/16 11:16:00 CDT, [facility] [facility] [place] Start Date: 05/25/16 Status: OrderedQvar 40 mcg/inh inhalation aerosol 2 puff(s), Inhale, BID, # 1 EA, 0 Refill(s), [facility] [facility] [place] Start Date: 07/21/13 Stop Date: 08/20/13 Status: CompletedTamiflu 75 mg oral capsule 1 cap(s), Oral, BID, # 14 cap(s), 0 Refill(s), Start Date: 04/19/16 14:36:00 ASSOCIATE BRAND MANAGER , [facility] [place] Start Date: 04/19/16 Stop Date: 05/20/16 Status: CompletedTest Strips Other (See Comment) blood sugar diagnostic Strips, 0 Refill(s), Supply Special Instructions: blood sugar diagnostic Strips Start Date: 08/09/13 Stop Date: 03/16/15 Status: CompletedToprol-XL 25 mg oral tablet, extended release 1 tab(s), Oral, Daily, # 30 tab(s), 2 Refill(s), Start Date: 04/24/14 16:04:00 ASSOCIATE BRAND MANAGER, [facility] [place] Start Date: 04/24/14 Stop Date: 07/28/14 Status: CompletedToprol-XL 25 mg oral tablet, extended release 1 tab(s), Oral, Daily, # 90 tab(s), 1 Refill(s), Start Date: 05/20/16 15:51:55 CDT, [facility] [place] [place] Start Date: 05/20/16 Status: OrderedToprol-XL 25 mg oral tablet, extended release 1 tab(s), Oral, Daily, # 30 tab(s), 0 Refill(s), Start Date: 03/30/15 8:50:13 ASSOCIATE BRAND MANAGER, [facility] [place] Start Date: 03/30/15 Stop Date: 04/27/15 Status: CompletedToprol-XL 25 mg oral tablet, extended release 1 tab(s), Oral, Daily, # 90 tab(s), 1 Refill(s), Start Date: 04/27/15 8:48:35 ASSOCIATE BRAND MANAGER, [facility] [facility] [place] Start Date: 04/27/15 Stop Date: 11/09/15 Status: CompletedToprol-XL 25 mg oral tablet, extended release 1 tab(s), Oral, Daily, # 30 tab(s), 5 Refill(s), Start Date: 08/18/14 9:33:12 CDT, Pharmacy: [place], [place] Start Date: 08/18/14 Stop Date: 02/24/15 Status: CompletedToprol-XL 25 mg oral tablet, extended release 1 tab(s), Oral, Daily, # 30 tab(s), 0 Refill(s), Start Date: 07/28/14 10:44:21 CDT, Pharmacy: [place], [place] Start Date: 07/28/14 Stop Date: 08/18/14 Status: CompletedToprol-XL 25 mg oral tablet, extended release 1 tab(s), Oral, Daily, # 90 tab(s), 1 Refill(s), Start Date: 11/09/15 9:20:27 CDT, Pharmacy: [place], [place] Start Date: 11/09/15 Stop Date: 05/20/16 Status: CompletedToprol-XL 25 mg oral tablet, extended release 1 tab(s), Oral, Daily, # 30 tab(s), 0 Refill(s), Start Date: 02/24/15 13:29:31 ASSOCIATE BRAND MANAGER, Pharmacy: [place], [place] Start Date: 02/24/15 Stop Date: 03/30/15 Status: CompletedToujeo SoloStar 300 units/mL subcutaneous solution 40 units, Subcutaneous, BID, 0 Refill(s), Start Date: 03/11/16 16:04:00 ASSOCIATE BRAND MANAGER Start Date: 03/11/16 Stop Date: 05/20/16 Status: DiscontinuedToujeo SoloStar 300 units/mL subcutaneous solution See Instructions, 45 units Subcutaneous BID, # 5 mL, 11 Refill(s), Start Date: 05/20/16 16:41:00 CDT, other reason (Rx) Special Instructions: 45 units Subcutaneous BID Start Date: 05/20/16 Status: OrderedTradjenta 5 mg oral tablet 1 tab(s), Oral, Daily, # 30 tab(s), 11 Refill(s), [facility] [facility] [place] Start Date: 09/11/13 Stop Date: 02/25/14 [...] tab(s), 2 Refill(s), Start Date: 02/18/14 14:45:00 ASSOCIATE BRAND MANAGER Special Instructions: maximum 6 in 24 hour period Start Date: 02/18/14 Stop Date: 10/06/15 Status: Discontinuedtriamcinolone 0.1% topical cream 1 norbert, Topical, BID, X 14 days, # 30 gm, 0 Refill(s), Start Date: 09/10/15 13:47 :00 CDT, [facility] [facility] [place] Start Date: 09/10/15 Stop Date: [...] Range]: 1 Urine Appearance Urine Dipstick Clear (06/16/16 12:30 PM) Urine Color Urine Dipstick Yellow (06/16/16 12:30 PM) Specific [place] Urine Dipstick 1.025 (06/16/16 12:30 PM) Bilirubin Urine Dipstick Negative (06/16/16 12:30 PM) pH Urine Dipstick 5 (06/16/16 12:30 PM) Urobilinogen Urine Dipstick 0.2 mg/dl (06/16/16 12:30 PM) Blood Urine Dipstick Negative (06/16/16 12:30 PM) Glucose Urine Dipstick 1/2 (500mg/dl) (06/16/16 12:30 PM) Ketones Urine Dipstick Trace (06/16/16 12:30 PM) Protein Urine Dipstick 4+ (greater than 2000 mg/dl) (06/16/16 12:30 PM) Nitrite Urine Dipstick Negative (06/16/16 12:30 PM) Leukocytes Urine Dipstick Negative (06/16/16 12:30 PM) Immunizations Vaccine Date Refusal Reason influenza [...]
--- OUTSIDE RECORDS SUMMARY | 2016-09-26 02:05 | XMS REPORT | Summary of Care ---
:1965 Author Organization [facility] Address [address] [place] [id number] Care Team Providers Name Role Phone Dany Bajwa Primary Care Physician Encounter Date(s): 09/06/16 - 09/06/[address] [id number] [place] Discharge Disposition: 01 Discharged to Home [...] # 30 cap(s), 0 Refill(s), [facility] [place] Start Date: 07/21/13 Stop Date: 07/31/13 Status: Completedaspirin 81 mg oral tablet 1 tab(s), Oral, Daily, 0 Refill(s) Start Date: 10/07/13 Status: OrderedAugmentin 875 mg-125 mg oral tablet 1 tab(s), Oral, q12hr, # 20 tab(s), 0 Refill(s), Start Date: 02/15/14 9:22: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, [facility] [place] Start Date: 02/15/14 Stop Date: 02/25/14 Status: DiscontinuedBactrim 400 mg-80 mg oral tablet 1 tab(s), Oral, Daily, PRN other (see comment), postcoital, X 90 days, # 20 tab( s), 3 Refill(s), Start Date: 12/15/15 15:47:00 CDT, [facility]: [facility] [place] Special Instructions: postcoital Start Date: 12/15/15 Stop Date: 06/16/16 Status: DiscontinuedBactrim DS 800 mg-160 mg oral tablet 1 tab(s), Oral, BID, X 7 days, # 14 tab(s), 0 Refill(s), Start Date: 04/16/14 13 :47: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 Start Date: 04/16/14 Stop Date: 04/23/14 Status: Completedcephalexin 500 mg oral tablet 1 tab(s), Oral, TID, # 21 tab(s), 0 Refill(s), Start Date: 12/10/15 16:22:00 CDT , [facility] [place] Start Date: 12/10/15 Stop Date: 01/18/16 Status: CompletedCipro 500 mg oral tablet 1 tab(s), Oral, Daily, X 7 days, # 7 tab(s), 0 Refill(s), Start Date: 09/27/14 9 :46:00 CDT, [facility] [place] Start Date: 09/27/14 Stop Date: 10/04/14 Status: CompletedCipro 500 mg oral tablet 1 tab(s), Oral, q12hr, # 10 tab(s), 0 Refill(s), Start Date: 03/18/15 13:05: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, [facility] [place] Start Date: 03/18/15 Stop Date: 04/09/15 Status: CompletedCipro 500 mg oral tablet 1 tab(s), Oral, q12hr, X 7 days, # 14 tab(s), 0 Refill(s), Start Date: 04/16/14 13:56: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 Start Date: 04/16/14 Stop Date: 04/23/14 Status: CompletedCipro 500 mg oral tablet 1 tab(s), Oral, q12hr, # 14 tab(s), 0 Refill(s), Start Date: 05/28/16 10:19:00 CDT, [facility] [facility] [place] Start Date: 05/28/16 Stop Date: 06/16/16 Status: DiscontinuedCipro 500 mg oral tablet 1 tab(s), Oral, q12hr, X 7 days, # 14 tab(s), 0 Refill(s), Start Date: 07/28/15 13:09:00 CDT, [facility] [place] Start Date: 07/28/15 Stop Date: 08/14/15 Status: CompletedCipro 500 mg oral tablet 1 tab(s), Oral, q12hr, # 14 tab(s), 0 Refill(s), Start Date: 03/11/16 16:34: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, [facility] [facility] Start Date: 03/11/16 Stop Date: 03/17/16 Status: CompletedCipro 500 mg oral tablet 1 tab(s), Oral, q12hr, # 14 tab(s), 0 Refill(s), Start Date: 08/14/15 14:07:40 CDT, [facility] [facility] Start Date: 08/14/15 Stop Date: 09/10/15 Status: CompletedCo Q-10 100 mg oral capsule 1 cap(s), Oral, Daily, 0 Refill(s), Start Date: 08/09/13 8:32:00 CDT Start Date: 08/09/13 Status: Orderedcyclobenzaprine 10 mg oral tablet 1 tab(s), Oral, TID, PRN for spasm, # 90 tab(s), 0 Refill(s), [facility] [facility] Start Date: 09/30/13 Stop Date: 10/29/13 Status: Completedcyclobenzaprine 10 mg oral tablet 1 tab(s), Oral, TID, PRN as needed for muscle spasm, # 30 tab(s), 0 Refill(s), Start Date: 08/18/14 9:33:10 CDT, [facility] Start Date: 08/18/14 Status: Orderedcyclobenzaprine 10 mg oral tablet 1 tab(s), Oral, TID, PRN as needed for muscle spasm, # 90 tab(s), 5 Refill(s), Start Date: 10/29/13 11:04:53 CDT, [facility] [place] Start Date: 10/29/13 Stop Date: 08/18/14 Status: CompletedCymbalta 60 mg, Oral, qPM, 0 Refill(s), Start Date: 07/21/13 12:05:00 CDT Start Date: 07/21/13 Status: OrderedFlorastor 250 mg oral capsule 1 cap(s), Oral, BID, # 20 cap(s), 0 Refill(s), Start Date: 03/18/15 13:04: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 , [facility] [place] Start Date: 03/18/15 Stop Date: 04/09/15 Status: Completedibuprofen 800 mg oral tablet 1 tab(s), Oral, TID, # 90 tab(s), 5 Refill(s), Start Date: 10/06/15 14:28:12 CDT , [facility] [facility] Start Date: 10/06/15 Status: Orderedibuprofen 800 mg oral tablet 1 tab(s), Oral, TID, # 90 tab(s), 0 Refill(s), [facility]acy: [facility] [place] Start Date: 09/30/13 Stop Date: 10/29/13 Status: Completedibuprofen 800 mg oral tablet 1 tab(s), Oral, TID, # 90 tab(s), 5 Refill(s), Start Date: 08/18/14 9:33:12 CDT , [facility] [facility] [place] Start Date: 08/18/14 Stop Date: 10/06/15 Status: Discontinuedibuprofen 800 mg oral tablet 1 tab(s), Oral, TID, # 90 tab(s), 5 Refill(s), Start Date: 02/18/14 14:47: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 , 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: [place] Start Date: 02/18/14 Stop Date: 08/18/14 Status: Completedibuprofen 800 mg oral tablet 1 tab(s), Oral, TID, # 90 tab(s), 5 Refill(s), Pharmacy: [place], [place] Start Date: 10/29/13 Stop Date: 02/25/14 Status: DiscontinuedInsulin Pen [place] 5/16" 31G 1 needle, Subcutaneous, QID, # 100 EA, 5 Refill(s), Pharmacy: [place], [place], Supply Start Date: 10/15/13 Stop Date: 06/06/14 Status: CompletedInsulin Pen [place] 5/16" 31G 1 needle, Subcutaneous, QID, Use 5 times daily and as needed; 250.00, insulin dependent diabetes mellitus., # 200 EA, 5 Refill(s), Pharmacy: [place], [place], Supply Special Instructions: Use 5 times daily and as needed; 250.00, insulin dependent diabetes mellitus. Start Date: 06/06/14 Stop Date: 07/22/15 Status: CompletedInsulin Pen [place] 5/16" 31G 100 [place], Subcutaneous, Daily, # 1 boxes, 0 Refill(s), Supply Start Date: 08/09/13 Stop Date: 10/15/13 Status: DiscontinuedKeflex 250 mg oral capsule 1 cap(s), Oral, Daily, PRN other (see comment), post-coital prophylaxis, # 20 cap(s), 6 Refill(s), Start Date: 06/16/16 8:43:00 CDT, Pharmacy: [place], [place] Special Instructions: post-coital prophylaxis Start Date: 06/16/16 Stop Date: 11/03/16 Status: OrderedKeflex 500 mg oral capsule 1 cap(s), Oral, BID, # 14 cap(s), 0 Refill(s), Start Date: 11/23/15 16:34:00 CDT , [facility] [facility] [place] Start Date: 11/23/15 Stop Date: 12/10/15 Status: CompletedLevemir Subcutaneous, 0 Refill(s) Start Date: 07/21/13 Stop Date: 08/10/13 Status: DiscontinuedLevemir 100 units/mL subcutaneous solution 60 units, Subcutaneous, BID, # 10 mL, 3 Refill(s), [facility] [facility] [place] Start Date: 08/12/13 Stop Date: 09/11/13 Status: DiscontinuedLevemir 100 units/mL subcutaneous solution 70 units, Subcutaneous, BID, # 100 units, 3 Refill(s) Start Date: 08/10/13 Stop Date: 08/12/13 Status: CompletedLevemir 100 units/mL subcutaneous solution 80 units, Subcutaneous, BID, dose change, # 1 QS, 5 Refill(s), [facility] [facility] [place]: dose change Start Date: 09/11/13 Stop Date: 09/12/13 Status: DiscontinuedLevemir 100 units/mL subcutaneous solution 80 units, Subcutaneous, BID, dose change, # 5 EA, 5 Refill(s), [facility] [place] Special Instructions: dose change Start Date: 09/12/13 Stop Date: 12/31/13 Status: CompletedLevemir FlexTouch 100 units/mL subcutaneous solution 80 units, Subcutaneous, BID, # 15 mL, 5 Refill(s), Start Date: 12/30/13 10:57: 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, [facility] [facility] [place] Start Date: 12/30/13 Stop Date: 12/31/13 Status: CompletedLevemir FlexTouch 100 units/mL subcutaneous solution 80 units, Subcutaneous, BID, 0 Refill(s), Start Date: 12/30/13 10:56: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 Start Date: 12/30/13 Stop Date: 12/30/13 Status: DiscontinuedLevemir FlexTouch 100 units/mL subcutaneous solution 80 units, Subcutaneous, BID, # 60 mL, 3 Refill(s), Start Date: 12/31/13 8:31:03 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 Start Date: 06/30/14 Stop Date: 01/18/16 Status: DiscontinuedLipitor Oral, HS, 0 Refill(s) Start Date: 07/21/13 Stop Date: 09/11/13 Status: DiscontinuedLipitor 40 mg oral tablet 1 tab(s), Oral, HS, # 30 tab(s), 11 Refill(s), [facility]: [facility] [place] Start Date: 09/11/13 Stop Date: 02/25/14 Status: DiscontinuedLipitor 80 mg oral tablet 1 tab(s), Oral, Daily, # 90 tab(s), 1 Refill(s), Start Date: 10/06/15 14:27:53 CDT, [facility] [place] Start Date: 10/06/15 Stop Date: 04/19/16 Status: CompletedLipitor 80 mg oral tablet 1 tab(s), Oral, Daily, # 90 tab(s), 1 Refill(s), Start Date: 04/27/15 8:50:46 OVER [employer]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, [facility] [place] Start Date: 04/27/15 Stop Date: 10/06/15 Status: DiscontinuedLipitor 80 mg oral tablet 1 tab(s), Oral, Daily, # 30 tab(s), 5 Refill(s), Start Date: 08/18/14 9:33:09 CDT, [facility] [place] Start Date: 08/18/14 Stop Date: 04/27/15 Status: CompletedLipitor 80 mg oral tablet 1 tab(s), Oral, Daily, # 90 tab(s), 1 Refill(s), Start Date: 04/19/16 16:38:20 OVER HA[employer]ER HELPER, [facility] [facility] [place] Start Date: 04/19/16 Stop Date: 05/20/16 Status: DiscontinuedLipitor 80 mg oral tablet 1 tab(s), Oral, Daily, # 90 tab(s), 1 Refill(s), Start Date: 02/25/14 11:02: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, [facility] [facility] [place] Start Date: 02/25/14 Stop Date: 08/18/14 Status: CompletedLipitor 80 mg oral tablet 0.5, Oral, Daily, # 45 tab(s), 3 Refill(s), Start Date: 05/20/16 16:40:23 CDT, other reason (Rx) Start Date: 05/20/16 Stop Date: 05/15/17 Status: Orderedlisinopril 2.5 mg oral tablet 1 tab(s), Oral, Daily, # 90 tab(s), 1 Refill(s), Start Date: 10/06/15 14:28:19 CDT, [facility] [place] Start Date: 10/06/15 Stop Date: 04/19/16 Status: Completedlisinopril 2.5 mg oral tablet 1 tab(s), Oral, Daily, # 90 tab(s), 1 Refill(s), Start Date: 02/25/14 11:01: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, [facility] [place] Start Date: 02/25/14 Stop Date: 08/04/14 Status: Completedlisinopril 2.5 mg oral tablet 1 tab(s), Oral, Daily, # 90 tab(s), 1 Refill(s), Start Date: 04/27/15 8:50:29 OVER [employer]ER HELPER, [facility] [place] Start Date: 04/27/15 Stop Date: 10/06/15 Status: Discontinuedlisinopril 2.5 mg oral tablet 1 tab(s), Oral, Daily, # 30 tab(s), 0 Refill(s), Start Date: 03/30/15 8:50:25 OVER [employer]ER HELPER, [facility] [place] Start Date: 03/30/15 Stop Date: 04/27/15 Status: Completedlisinopril 2.5 mg oral tablet 1 tab(s), Oral, Daily, # 30 tab(s), 5 Refill(s), Start Date: 08/18/14 9:33:11 CDT, [facility] [facility] Start Date: 08/18/14 Stop Date: 02/24/15 Status: Completedlisinopril 2.5 mg oral tablet 1 tab(s), Oral, Daily, # 90 tab(s), 0 Refill(s), Start Date: 08/02/16 9:26:16 CDT, [facility] [place] Start Date: 08/02/16 Status: Orderedlisinopril 2.5 mg oral tablet 1 tab(s), Oral, Daily, # 30 tab(s), 0 Refill(s), Start Date: 08/04/14 15:05:18 CDT, [facility] [place] Start Date: 08/04/14 Stop Date: 08/18/14 Status: Completedlisinopril 2.5 mg oral tablet 1 tab(s), Oral, Daily, # 90 tab(s), 0 Refill(s), Start Date: 04/19/16 8:41:55 OVER HA[employer]ER HELPER, [facility] [place] Start Date: 04/19/16 Stop Date: 08/02/16 Status: Completedlisinopril 2.5 mg oral tablet 1 tab(s), Oral, Daily, # 30 tab(s), 0 Refill(s), Start Date: 02/24/15 13:29:23 OVER [employer]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, [facility] [place] Start Date: 02/24/15 Stop Date: 03/30/15 Status: Completedlisinopril 20 mg oral tablet 1 tab(s), Oral, Daily, # 14 tab(s), 0 Refill(s), Start Date: 04/16/14 13:47: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 Start Date: 04/16/14 Stop Date: 04/24/14 Status: Discontinuedlisinopril 20 mg oral tablet 1 tab(s), Oral, Daily, X 14 days, # 14 tab(s), 0 Refill(s), Start Date: 13:56: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 Start Date: 04/16/14 Stop Date: 04/24/14 Status: DiscontinuedLORazepam 1 mg oral tablet 1 tab(s), Oral, HS, 0 Refill(s), Start Date: 03/17/16 15:20: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 Start Date: 03/17/16 Status: Orderedmeloxicam 15 mg oral tablet 1 tab(s), Oral, Daily, 0 Refill(s) Start Date: 08/09/13 Stop Date: 09/11/13 Status: DiscontinuedmetFORMIN 500 mg oral tablet 1 tab(s), Oral, Daily, 0 Refill(s) Start Date: 10/07/13 Status: Orderedmethylphenidate 10 mg oral tablet 1-2 tab(s), Oral, TID, 0 Refill(s), Start Date: 03/16/15 14:45: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 Start Date: 03/16/15 Stop Date: 05/20/16 Status: Completedmultivitamin 1 tab(s), Oral, Daily, 0 Refill(s), Start Date: 08/09/13 8:33:00 CDT Start Date: 08/09/13 Status: OrderedNovoLOG Subcutaneous, TIDAC, 0 Refill(s) Start Date: 07/21/13 Status: OrderedPen [place] Short 31G 8mm See Instructions, up to 5 times daily with insulin pens; diagnosis E11.9, # 200 EA, 5 Refill(s), Pharmacy: [place], [place], Supply Special Instructions: up to 5 times daily with insulin pens; diagnosis E11.9 Start Date: 07/22/15 Stop Date: 12/14/15 Status: CompletedPen [place] Short 31G 8mm See Instructions, up to 5 times daily with insulin pens, 0 Refill(s), Supply Special Instructions: up to 5 times daily with insulin pens Start Date: 07/22/15 Stop Date: 07/22/15 Status: DiscontinuedPen [place] Short 31G 8mm See Instructions, up to 5 times daily with insulin pens; diagnosis E11.9, # 200 EA, 5 Refill(s), Pharmacy: [place], [place], Supply Special Instructions: up to 5 [...] Start Date: 10/06/15 14:29:00 CDT , Pharmacy: [facility] [place] Start Date: 10/06/15 Stop Date: 11/23/15 Status: DiscontinuedPriLOSEC 20 mg oral delayed release capsule 1 cap(s), Oral, Daily, # 30 cap(s), 11 Refill(s), [facility] [place] [place] Start Date: 09/11/13 Status: OrderedPriLOSEC 20 mg oral delayed release capsule 1 cap(s), Oral, Daily, 0 Refill(s) Start Date: 08/09/13 Stop Date: 09/11/13 Status: DiscontinuedPyridium 100 mg oral tablet 1 tab(s), Oral, TID, PRN as needed for urinary discomfort, # 90 tab(s), 0 Refill (s), Start Date: 05/25/16 11:16:00 CDT, [facility] [place] Start Date: 05/25/16 Status: OrderedQvar 40 mcg/inh inhalation aerosol 2 puff(s), Inhale, BID, # 1 EA, 0 Refill(s), [facility] [place] Start Date: 07/21/13 Stop Date: 08/20/13 Status: CompletedTamiflu 75 mg oral capsule 1 cap(s), Oral, BID, # 14 cap(s), 0 Refill(s), Start Date: 04/19/16 14:36: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 , [facility] [place] [place] Start Date: 04/19/16 Stop Date: 05/20/16 Status: CompletedTest Strips Other (See Comment) blood sugar diagnostic Strips, 0 Refill(s), Supply Special Instructions: blood sugar diagnostic Strips Start Date: 08/09/13 Stop Date: 03/16/15 Status: CompletedToprol-XL 25 mg oral tablet, extended release 1 tab(s), Oral, Daily, # 30 tab(s), 2 Refill(s), Start Date: 04/24/14 16:04: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, [facility] [facility] Start Date: 04/24/14 Stop Date: 07/28/14 Status: CompletedToprol-XL 25 mg oral tablet, extended release 1 tab(s), Oral, Daily, # 90 tab(s), 1 Refill(s), Start Date: 05/20/16 15:51:55 CDT, [facility] Start Date: 05/20/16 Status: OrderedToprol-XL 25 mg oral tablet, extended release 1 tab(s), Oral, Daily, # 30 tab(s), 0 Refill(s), Start Date: 03/30/15 8:50:13 OVER [employer]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, [facility] [facility] [place] Start Date: 03/30/15 Stop Date: 04/27/15 Status: CompletedToprol-XL 25 mg oral tablet, extended release 1 tab(s), Oral, Daily, # 90 tab(s), 1 Refill(s), Start Date: 04/27/15 8:48:35 OVER [employer]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, [facility] [facility] [place] Start Date: 04/27/15 Stop Date: 11/09/15 Status: CompletedToprol-XL 25 mg oral tablet, extended release 1 tab(s), Oral, Daily, # 30 tab(s), 5 Refill(s), Start Date: 08/18/14 9:33:12 CDT, [facility] [facility] [place] Start Date: 08/18/14 Stop Date: 02/24/15 Status: CompletedToprol-XL 25 mg oral tablet, extended release 1 tab(s), Oral, Daily, # 30 tab(s), 0 Refill(s), Start Date: 07/28/14 10:44:21 CDT, [facility] [place] Start Date: 07/28/14 Stop Date: 08/18/14 Status: CompletedToprol-XL 25 mg oral tablet, extended release 1 tab(s), Oral, Daily, # 90 tab(s), 1 Refill(s), Start Date: 11/09/15 9:20:27 CDT, [facility] [place] Start Date: 11/09/15 Stop Date: 05/20/16 Status: CompletedToprol-XL 25 mg oral tablet, extended release 1 tab(s), Oral, Daily, # 30 tab(s), 0 Refill(s), Start Date: 02/24/15 13:29:31 [employer] HELPER, Pharmacy: [place], [place] Start Date: 02/24/15 Stop Date: 03/30/15 Status: CompletedToujeo SoloStar 300 units/mL subcutaneous solution 40 units, Subcutaneous, BID, 0 Refill(s), Start Date: 03/11/16 16:04: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 Start Date: 03/11/16 Stop Date: 05/20/16 Status: DiscontinuedToujeo SoloStar 300 units/mL subcutaneous solution See Instructions, 45 units Subcutaneous BID, # 5 mL, 11 Refill(s), Start Date: 05/20/16 16:41:00 CDT, other reason (Rx) Special Instructions: 45 units Subcutaneous BID Start Date: 05/20/16 Status: OrderedTradjenta 5 mg oral tablet 1 tab(s), Oral, Daily, # 30 tab(s), 11 Refill(s), [facility] [place] [place] Start Date: 09/11/13 Stop Date: 02/25/14 [...] tab(s), 2 Refill(s), Start Date: 02/18/14 14:45: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 Special Instructions: maximum 6 in 24 hour period Start Date: 02/18/14 Stop Date: 10/06/15 Status: Discontinuedtriamcinolone 0.1% topical cream 1 norbert, Topical, BID, X 14 days, # 30 gm, 0 Refill(s), Start Date: 09/10/15 13:47 :00 CDT, [facility] [facility] [place] Start Date: 09/10/15 Stop Date: 09/24/15 [...] oldest [Reference Range]: 1 WBC [4.8-10.8 thou/mm3] 7.5 thou/mm3 (09/06/16 9:47 AM) RBC [4.20-5.40 Mil/mm3] 4.87 Mil/mm3 (09/06/16 9:47 AM) Hgb [12.0-16.0 g/dL] 14.5 g/dL (09/06/16:47 AM) Hct [37.0-47.0 %] 44.4 % (09/06/16:47 AM) MCV [80.0-94.0 fL] 91.2 fL (09/06/1647 AM) MCH [25.0-38.0 pg/cell] 29.8 pg/cell (09/06/16:47 AM) MCHC [31.0-37.0 g/dL] 32.7 g/dL (09/06/16:47 AM) RDW [11.6-14.8 %] 12.6 % (09/06/16:47 AM) Platelet [130-400 thou/mm3] 275 thou/mm3 (09/06/16:47 AM) MPV [0.0-99.8 fL] 10.3 fL (09/06/16:47 AM) Sodium Lvl [136-145 mmol/L] 141 mmol/L (09/06/16:47 AM) Potassium Lvl [3.5-5.1 mmol/L] 4.5 mmol/L (09/06/16:47 AM) Chloride Lvl [98-107 mmol/L] 103 mmol/L (09/06/16:47 AM) Bicarbonate Lvl [21-32 mmol/L] 31 mmol/L (09/06/16:47 AM) Anion Gap [12-19] 12 (09/06/16:47 AM) Glucose Lvl [74-106 mg/dL] 236 mg/dL *HI* (09/06/16 9:47 AM) BUN [7-18 mg/dL] 19 mg/dL *HI* (09/06/16:47 AM) Creatinine Lvl [0.55-1.02 mg/dL] 0.54 mg/dL *LOW* (09/06/16:47 AM) BUN/Creat Ratio 35 *NA* (09/06/16:47 AM) eGFR AA [>=60] >60 (09/06/16 9:47 AM) eGFR MARIAN [>=60] >60 (09/06/16 9:47 AM) Calcium Lvl [8.5-10.1 mg/dL] 8.9 mg/dL (09/06/16 9:47 AM) Total Protein [6.4-8.2 g/dL] 6.6 g/dL (09/06/16 9:47 AM) Albumin Lvl [3.4-5.0 g/dL] 3.6 g/dL (09/06/16 9:47 AM) Globulin 3 g/dL *NA* (09/06/16 9:47 AM) A/G Ratio [1.0-2.0] 1.2 (09/06/16 9:47 AM) Bilirubin Total [0.2-1.0 mg/dL] 0.3 mg/dL (09/06/16 9:47 AM) Alkaline Phosphatase [46-116 unit/L] 91 unit/L (09/06/16 9:47 AM) AST [15-37 unit/L] 13 unit/L *LOW* (09/06/16 9:47 AM) ALT [14-59 unit/L] 32 unit/L (09/06/16 9:47 AM) Glycated Hemoglobin [4.5-6.2 %] 8.8 % *HI* (09/06/16 9:47 AM) Estimated Average Glucose [64-120 mg/dL] 207 mg/dL *HI* (09/06/16 9:47 AM) Cholesterol Total [0-200 mg/dL] 179 mg/dL (09/06/16 9:47 AM) Triglyceride [0-200 mg/dL] 163 mg/dL (09/06/16 9:47 AM) HDL Cholesterol [40-60 mg/dL] 38 mg/dL *LOW* (09/06/16 9:47 AM) LDL Cholesterol (Direct) [0-130 mg/dL] 108 mg/dL (09/06/16 9:47 AM) Non HDL Cholesterol [0-160 mg/dL] 141 mg/dL (09/06/16 9:47 AM) Microalbumin, Ur 436.4 mg/L *NA* (09/06/16 9:47 AM) Creatinine, Urine MA 91.91 mg/dL *NA* (09/06/16 9:47 AM) Ur Microalb/Creat Ratio [<=30 mg/g Cr] 475 mg/g Cr *HI* (09/06/16 9:47 AM) Immunizations Vaccine Date Refusal Reason influenza [...]
--- NOTE | 2016-09-26 02:06 | ERNOTE ---
Medical Problem HPI - Narrative Date of Service: 09/26/16 - General Chief Complaint: Diabetes Related Problem Time Seen by Provider: 09/26/16 01:44 Source: patient, family - I accompanied by her . - Immun/Allergies/Home Medications Immunizations: IMMUNIZATION HX Immunizations Up to Date Yes History of Influenza Vaccine Yes Hx Pneumococcal Vaccination No Allergies/Adverse Reactions: Allergies meperidine [From Demerol] Adverse Reaction (Intermediate, Verified 09/26/16 01: 58) BP "bottoms out" nalbuphine [From Nubain] Adverse Reaction (Intermediate, Verified 09/26/16 01:58 ) BP "bottoms out" prochlorperazine [From Compazine] Adverse Reaction (Intermediate, Verified 09/26 01:58) "jaw juts out" promethazine [From Phenergan] Adverse Reaction (Intermediate, Verified 09/26/16 01:50) "swelling" Home Medications: HOME MEDICATIONS Atorvastatin Calcium [Lipitor] 80 mg PO DAILY 09/26/16 [Last Taken Unknown] Bupropion HCl [Wellbutrin Sr] 100 mg PO TID 09/26/16 [Last Taken Unknown] DULoxetine HCL [Cymbalta] 90 mg PO DAILY 09/26/16 [Last Taken Unknown] Insulin Glargine,Hum.rec.anlog [Lantus Solostar] 50 unit SQ BID 09/26/16 [Last Taken Unknown] Liraglutide [Victoza 2-Douglas] 0.6 mg SQ DAILY 09/26/16 [Last Taken Unknown] Lisinopril [Zestril] 2.5 mg PO DAILY 09/26/16 [Last Taken Unknown] Metoprolol Succinate [Toprol Xl] 25 mg PO DAILY 09/26/16 [Last Taken Unknown] Nitrofurantoin/Nitrofuran Mac [Macrobid] 100 mg PO Q12H #20 cap 09/26/16 [Last Taken Unknown] Ondansetron [Zofran Odt] 4 mg PO Q6H PRN #20 tab 09/26/16 [Last Taken Unknown] clonazePAM [Klonopin] 1 mg PO TID PRN 09/26/16 [Last Taken Unknown] metFORMIN HCL [Metformin HCl ER] 500 mg PO BID 09/26/16 [Last Taken Unknown] - History of Present History Narrative: Patient arrives here EMS for acute diabetic illness and possible hypoglycemia. There is some question as to whether her blood sugars were accurately recorded. Patient states that she awoke diaphoretic and shaky was very concerned that her blood sugar was low she asked her to change check her blood sugar. Upon the check they got approximately 233 on the meter. She is a little bit delirious and told him to give her 20 units as that is her baseline but there is medicine understanding apparently he gave her her short acting insulin which was 20 units subcutaneous when the EMS squad got there her blood sugar dropped down to approximately 167 and they were concerned about hypoglycemia they brought her in for evaluation. Patient reports that she has had about 2 day history of nausea severe and diarrhea patient states that both her and her became ill after eating at a new restaurant. Date (Duration): 09/25/16 Time (Timing): 18:00 Timing: getting worse Severity: severe Modifying Factors - (Improves): Present: other - nothing improves, she tried ondansteron an old rx and no improvement in her condition Review of Systems - Narrative Narrative: Patient has increased problem with diarrhea, attempting sips of seven up and gatorade, with no improvement, she has increased epigastric discomfort. - Review of Systems EYE: Present: no symptoms reported ENT: Present: no symptoms reported Respiratory: Present: no symptoms reported Cardiology: Present: no symptoms reported. Absent: chest pain, palpitations Gastrointestinal/Abdominal: Present: diarrhea Genitourinary: Present: no symptoms reported Musculoskeletal: Present: no symptoms reported Skin: Present: no symptoms reported Neurological: Present: no symptoms reported Endocrine: Present: other - diabete medication, starting victoza and weaning off the short acting insulin - Narrative Narrative: PMH, PSH, SH, Meds, Allergies, FH all reviewed. - Patient's Past Medical History Patient History - Medical: Diabetes Type 2, Depression Patient History - Cardiac/Respiratory: Hypertension, Hyperlipidemia Patient History - Cancer: No Hx of Cancer Patient History - Surgical Procedures: Back Surgery, Cholecystectomy, Hysterectomy Patient History - Other: None LMP (females 10-50): hysterectomy - Social History Living Situations: spouse Abuse History: No History of abuse Psych History: Hx of Depression, Current tx/ever been on anti-depressants or anti-anxiety meds Smoking Status: Never smoker Have you smoked in the past 12 months: No Do you dip or chew tobacco: No Alcohol Use: occasionally Drug Use: none - Immunizations Immunizations Up to Date: Yes Hx Pneumococcal Vaccination: No History of Influenza Vaccine: Yes Physical Exam - Physical Exam General Appearance: Present: wd/wn, alert, mild distress Head Exam: Present: normal inspection, no evidence of injury Eye Exam: Normal inspection: bilateral, PERRL: bilateral, EOMI: bilateral Ears, Nose, Throat: Present: normal ENT inspection, normal pharynx Neck: Present: normal inspection, nontender Respiratory: Present: no respiratory distress, normal breath sounds, no accessory muscle use, chest nontender, lungs clear Cardiovascular/Chest: Present: regular rate, rhythm, no murmur, normal peripheral pulses Gastrointestinal/Abdominal: Present: normal bowel sounds, soft, tenderness - mild epigastric noted. Rectal Exam: Present: deferred Back Exam: Present: normal inspection, normal range of motion, no vertebral tenderness Extremity Exam: Present: normal inspection, normal range of motion, no edema Neurological Exam: Present: alert, oriented, normal mood/affect, no motor/ sensory deficits Skin Exam: Present: normal color, warm/dry Lymphatic Exam: Present: no adenopathy Pelvic Exam: Present: deferred ED Progress - Results and Orders Patient's Lab Results:: I have reviewed the patient's lab results. Results and Orders: Laboratory Tests 09/26/16 09/26/16 09/26/16 01:50 01:50 01:50 WBC 11.8 H RBC 5.87 H Hgb 17.3 H Hct 51.2 H MCV 87.2 MCH 29.5 MCHC 33.8 RDW 12.3 Plt Count 340 MPV 10.3 H Immature Gran % (Auto) 0.30 Immature Gran # (Auto) 0.03 Neutrophils % 77.5 H Lymphocytes % 15.8 L Monocytes % 5.4 Eosinophils % 0.8 Basophils % 0.2 Nucleated RBC % 0.0 Sodium 135 Plasma Sodium 138 Potassium 3.8 Chloride 101 Carbon Dioxide 23.3 L Anion Gap 14.5 H BUN 23 Creatinine 0.68 Est GFR (Non-Af Amer) 97 BUN/Creatinine Ratio 33.8 H Random Glucose 288 H Lactic Acid, Venous 1.9 Calcium 8.9 Calcium Adj for Albumin 9.1 Total Bilirubin 0.5 AST 31 ALT 49 Alkaline Phosphatase 131 C-Reactive Prot, Quant 2.6 H Total Protein 6.9 Albumin 3.4 Laboratory Tests 09/26/16 04:10 Urine Color Yellow Urine Appearance Clear Urine pH 5.5 Ur Specific [place] >=1.030 Urine Protein 100 H Urine Glucose (UA) 250 H Urine Ketones Negative Urine Blood Negative Urine Nitrate Positive H Urine Bilirubin Negative Urine Urobilinogen Normal Ur Leukocyte Esterase Negative Urine RBC None seen Urine WBC 5-10 H Ur Epithelial Cells None seen Urine Bacteria 4+ H Hyaline Casts 0-5 H Urine Culture Comments Culture to follow - Vital Signs Patient's Vital Signs:: I have reviewed the patient's vital signs. Vital Signs: Vital Signs 09/26/16 01:37 Temperature 35.8 C L Pulse Rate 93 Respiratory 16 Rate Blood Pressure 98/79 O2 Sat by Pulse 95 Oximetry - EKG EKG: NSR, other EKG read: Reviewed by me - EKG done at 2:01 AM. Sinus rhythm rate of 85 bpm left atrial enlargement and left axis deviation nonspecific ST-T wave changes are noted. No ectopy QTC was 408 ms. No evidence of acute STEMI abnormal EKG as noted above. EKG Comments: Abnormal EKG see above. - X-Ray X-Ray #1 X-Ray: chest Interpretation: Interp. by me, Reviewed by me X-ray Comments: No acute cardiopulmonary disease noted, no acute infiltrate. [facility] PATIENT RADIOLOGY STUDY REPORT Patient Patient Name:THERESA BELLO Date: 1965 Sex: F Order Number: [id number] Unique Exam ID: [id number] Exam Requested: CXRSINGLE - Chest Single View * Date Scheduled: 09-26-2016 03:07 AM Study Priority: Requesting Service: Requesting Physician: Padmini Yost Reason for Exam: hypoxia, hypoglycemia Radiological Report : [facility] [id number] [address] NAME: THERESA BELLO : 1965 MR #: [id number] CC: Padmini Yost DO LOC: ER ADM DATE: X-RAY REPORT [id number] RAD/Chest Single View * Exam Date: 09/26/2016 03:07 Ordering Physician: Padmini Yost History: hypoxia, hypoglycemia . Additional history provided by the technologist: Short of breath tonight. Technique: Frontal views of the chest are evaluated. (1) views. Comparison: None. Findings: The patient is slightly rotated and apically lordotically positioned. The lungs are symmetrically inflated. There is eventration of the right diaphragm. No focal consolidation. No pneumothorax or pleural effusion. The mediastinum, cardiac silhouette and pulmonary vascularity are within normal limits. The osseous structures are remarkable for degenerative changes. No acute osseous findings. Changes from right shoulder rotator cuff repair noted with a single intact suture anchor. IMPRESSION: No acute pulmonary findings. Electronically signed by Rajesh Salvador D.O.. Rajesh Salvador DO Dict: 09/26/16 0532 Typed: 09/26/16 0532/ 09/26/16 0533 09/26/16 0536 [ rep ct labl] [ rep ct name suf] [ rep ct add1] [ rep ct add2] [ rep ct city], [ rep ct state] [ rep ct zip] Approved by: Rajesh Salvador Approval Date: 09-26-2016 Approval Time: 05:32 AM THIS REPORT WAS RECEIVED FROM THE [employer] - Progress/Reassessment Chief Complaint: Diabetes Related Problem Progress:: Improved - Transfer of Care Expected Disposition: Discharge Plan - Plan Plan: Patient had low pulse ox will get chest xray : Repeat blood pressure 153/74, pulse oximetry now 93 on Room air . 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 Use your short acting insulin until your diet is moderately back to normal. I would recommend half of your long acting Lantus insulin: and avoid the victoza for now Referrals: Dany Romero MD [Non Staff Physicians] - 09/28/16 (patient to call for follow up appointment ) Prescriptions: Nitrofurantoin/Nitrofuran Mac [Macrobid] 100 mg PO Q12H #20 cap Ondansetron [Zofran Odt] 4 mg PO Q6H PRN #20 tab PRN Reason: nausea
[2016-09-26 02:07] LABS: Albumin * 3.4 gm/dl (3.4-5.0); Anion Gap 14.5 mmol/L (6.8-13.8); BUN/Creatinine Ratio 33.8 (9.0-21.6); Bilirubin, Total 0.5 mg/dL (0.0-1.1); CRP 2.6 mg/dL (0.0-0.9); Ca. Corrected For Albumin 9.1 mg/dL (8.4-10.2); Calcium * 8.9 mg/dL (7.9-10.9); Carbon Dioxide 23.3 mmol/L (24-32.6); Potassium 3.8 mmol/L (3.4-4.6); Total Protein 6.9 gm/dL (6.2-8.2)
[2016-09-26 04:20] LABS: Urine Bilirubin Negative (NEGATIVE); Urine Blood Negative /ul (NEGATIVE); Urine Ketone Negative (NEGATIVE); Urine Protein 100 mg/dL (NEGATIVE); Urine Specific Gravity >=1.030 SP.GR. (1.005-1.010); Urine Urobilinogen Normal (NORMAL); Urine pH 5.5 pH (5.0-7.0)
[2016-09-26 04:29] LABS: Urine Appearance Clear; Urine Bacteria 4+; Urine Color Yellow; Urine Hyaline Cast 0-5 /LPF; Urine Nitrite Positive (NEGATIVE); Urine RBC None Seen /hpf (0-5)
[2016-09-26] MEDS ORDERED: ONDANSETRON 4 MG TAB.RAPDIS PO ONE (04:50)
[2016-09-26] MEDS ORDERED: NORMAL SALINE 500 ML IV ONE (04:58)
[2016-09-26] MEDS ORDERED: FAMOTIDINE 10 MG/ML VIAL IV ONE ×2 (05:01→05:04)
[2016-09-26 05:27] VITALS: BP 117/70
[2016-09-26] MEDS ORDERED: ONDANSETRON 4 MG TAB.RAPDIS ONE (05:31)
== END 2016-09-26 05:40 | disposition home or self-care (01) ==
LOC: ER 01:32
DX: A08.4 Viral intestinal infection, unspecified (principal); N39.0 Urinary tract infection, site not specified; B96.89 Other specified bacterial agents as the cause of diseases classified elsewhere; E11.65 Type 2 diabetes mellitus with hyperglycemia; Z79.4 Long term (current) use of insulin; I10 Essential (primary) hypertension; E78.5 Hyperlipidemia, unspecified
CPT/HCPCS: 36415; 71010; 80053; 81001; 83605; 85025; 86140; 87045; 87046; 87077; 87086; 87186; 87493; 93005; 96365; 96375; 99285; J2405